=== PATIENT | female | born 1985 | race Caucasian/White ===

== ENCOUNTER 2022-06-20 16:51 | Emergency (ER) | payer BC, SELFPAY ==
[2022-06-20 18:06] VITALS: BP 122/77; PULSE 99; RESP 18; TEMP 36.8; O2SAT 99; BMI 36.9
[2022-06-20] MEDS: 0.9 % SODIUM CHLORIDE 1000 ml 1,000 ML IV (19:30)
[2022-06-20] MEDS: ONDANSETRON 2 MG/ML inj 4 MG IVP (19:30)
[2022-06-20] MEDS: MORPHINE 4 MG/ML INJ IVP (19:40)
[2022-06-20 19:45] LABS: Lactate* 0.7 mmol/L (0.5-1.9)
[2022-06-20 19:48] LABS: Basophils Absolute Auto 0.02 K/uL (0.00-0.30); Basophils Percent Auto 0.3 % (0.0-3.0); Eosinophils Percent Auto 1.3 % (0.0-7.0); Hematocrit 37.3 % (33.0-51.0); Lymphocytes Percent Auto 19.9 % (20-44); Mean Corpuscular HGB Conc 32 gm/dL (32-36); Mean Corpuscular Hemoglobin 29 pg (26-34); Mean Corpuscular Volume 90 fL (80-100); Monocytes Percent Auto 9.4 % (0.0-11.0); Neutrophils Absolute Auto 5.31 K/uL (1.7-7.0); Neutrophils Percent Auto 69.1 % (42.0-72.0); Platelet Count* 243 K/uL (140-440); RDW Coefficient of Variation % 13.2 % (11.5-15.5); Red Blood Count 4.16 m/uL (4.00-5.20); White Blood Count* 7.68 K/uL (4.50-11.00)
[2022-06-20 19:51] LABS: Slide Review Reflex No
[2022-06-20 20:02] LABS: Albumin* 4.1 g/dL (3.3-5.0); Chloride* 107 mmol/L (96-114)
[2022-06-20 20:03] LABS: Sodium* 137 mmol/L (135-149)
[2022-06-20 20:05] LABS: Alkaline Phosphatase* 78 U/L (40-150); Aspartate Amino Transferase* 63 U/L (12-35); Bilirubin Total* 0.5 mg/dL (0.1-1.5); Carbon Dioxide* 24 mmol/L (20-32); Creatinine* 0.8 mg/dL (0.5-1.5); Est. Creatinine Clearance* 100.62; Estimated Glomerular Filt Rate 97 ml/min; Total Protein* 7.1 g/dL (6.0-8.3)
[2022-06-20 20:06] LABS: Alanine Aminotransferase* 57 U/L (4-35); Blood Urea Nitrogen* 10 mg/dL (5-24); Glucose* 92 mg/dL (60-115)
[2022-06-20 20:08] LABS: C Reactive Protein* 5.8 mg/dL (0.5-1.0)
[2022-06-20 20:30] LABS: PCR FLU A Negative PCR FLU A (Negative); PCR FLU B Negative PCR FLU B (Negative)
--- NOTE | 2022-06-20 20:31 | CRLHL7_ITS ---
For Patients: As a result of the Century Cures Act, medical imaging exams and procedure reports are released immediately into your electronic medical record. You may view this report before your referring provider. If you have questions, please contact your health care provider. INDICATION: Leg pain and swelling. TECHNIQUE: Ultrasound venous duplex lower left extremity. Compression venous exam was performed using reyna-scale, color Doppler, and spectral Doppler analysis. COMPARISON: None. FINDINGS: Deep veins: Sonographic imaging demonstrates the left common femoral, deep femoral, superficial femoral, popliteal, posterior tibial and the contralateral right common femoral veins to be fully compressible with normal color Doppler blood flow. Superficial veins: Greater saphenous vein is fully compressible. No popliteal cyst. IMPRESSION: Normal left lower extremity venous ultrasound, no sign of deep venous thrombosis. Dictated by Willie Jules MD @ 06/20/2022 10:23:59 PM (Electronically Signed)
[2022-06-20 20:32] LABS: SARS PCR* Negative SARS-CoV-2 (Negative)
--- NOTE | 2022-06-20 20:40 | ED_ITS ---
HPI - Extremity Injury (Lower) General Time Seen by Provider: 19:00 Date Seen: 06/20/22 Chief Complaint: Extremity Pain/Injury, Lower Stated Complaint: Possible blood clot in L ankle Time Seen by Provider: 06/20/22 19:04 Source: patient, family, RN notes reviewed and old records reviewed Mode of arrival: wheelchair Limitations: no limitations History of Present Illness HPI Narrative: Geetha is a 36-year-old female who is postop day 2 after left ankle orthopedic surgery for fracture dislocation in [place] who comes into in the [place] emergency room for increasing pain. Patient notes that she is requesting stronger pain medications as what she has is not working. She states that she has been using hydrocodone and a muscle relaxer but it is not helping. She also notes significantly increased swelling in this leg and is worried about blood clots. She has not had a fever but is just not feeling well. Patient notes that she was actually getting on a plane on a MondayJune 18 and fell at the airport. She had her ankle repaired and I do note significant fractures I believe this to be trimalleolar as well as dislocation. Thus far she knows t here was no complications during the surgery. She was discharged yesterday and received Lovenox prior to discharge. Unfortunately they missed their plane and had to wait till a late plane in the airport. She then had ride in a plane for 3 hours. She notes increasing edema that has persisted in spite of trying to keep her foot up at home. She was supposed to start Xarelto this evening but has not yet picked up her prescription. She has no past history of DVT. She notes that she gets very nauseated when she sees needles or has the need for an IV. Related Data Home Medications Medication Instructions Recorded Confirmed esomeprazole magnesium 20 mg 20 mg PO QDAY 05/18/22 06/20/22 capsule,delayed release (Nexium) hydrocodone 5 mg-acetaminophen 325 2 tab PO Q4H PRN 06/20/22 06/20/22 mg tablet methocarbamol 500 mg tablet 500 mg PO Q6H PRN 06/20/22 06/20/22 ondansetron 4 mg disintegrating 4 mg PO Q6H PRN 06/20/22 06/20/22 tablet rivaroxaban 10 mg tablet (Xarelto) 10 mg PO DAILY 06/20/22 06/20/22 Previous Rx's Medication Instructions Recorded sertraline 200 mg capsule 200 mg PO QDAY #90 caps 05/18/22 cephalexin 500 mg capsule 500 mg PO TID #21 caps 06/20/22 sulfamethoxazole 800 1 tab PO BID #14 tabs 06/20/22 mg-trimethoprim 160 mg tablet (Bactrim DS) Allergies Allergy/AdvReac Type Severity Reaction Status Date / Time ranitidine Allergy Mild Vomiting Verified 06/20/22 18:14 Review of Systems Status of ROS: Reports: 10 or more systems reviewed and unremarkable except as noted in History and below Const: Reports: fatigue; Denies: fever Eyes: Denies: change in vision ENMT: Denies: throat pain, neck pain or difficulty swallowing Cardio: Reports: swelling of feet/ankles; Denies: chest pain or shortness of breath with exertion Resp: Denies: shortness of breath or cough GI: Reports: nausea; Denies: abdominal pain, vomiting, diarrhea or difficulty swallowing : Denies: painful urination Musculo: Denies: neck pain Integ/Breast: Denies: redness Neuro: Denies: headache Endo: Reports: fatigue PFSH PFSH Medical History Galactorrhea in female Gestational hypertension Surgical History History of ankle surgery History of third molar tooth extraction Family History Family/Other Heart disease High blood pressure High cholesterol Father FH: prostate cancer Alcohol dependence Social History Smoking Status: Never smoker Do you use any of these nicotine containing products: None Second hand tobacco smoke exposure: No How often do you have a drink containing alcohol: never How often do you have six or more drinks on one occasion: Never AUDIT-C Alcohol total score: 0 Non-prescribed substance use: denies use Little interest or pleasure in doing things: more than half the days Feeling down, depressed, or hopeless: more than half the days Exam Narrative: Exam Narrative: Patient is alert and oriented. She is lying on the chair in room 4. Her left leg is elevated. Her neck is supple. She is breathing without difficulty. Heart with regular rate and rhythm and lungs are clear. Abdomen soft. Examination of the lower extremity shows well-demarcated erythema extending above the splint that has been placed. This area of skin on her upper leg is warm to the touch. She is able to move her toes but she clearly has discomfort. Toes are cool to the touch. However I do find pedal pulse which is intact. The splint is gradually removed and there is no significant erythema surrounding the incisions which are stable. A culture is accomplished. All dressings removed and patient has a 5-1/2 cm surgical incision on the medial aspect of the lower leg just above malleolus. Zeferino are present. No drainage from this area. On the lateral surface she has 2 separate vertical surgical wo und measuring approximately 5-6 cm each. Rialto are in place. On the superior surgical wound there is some drainage that is bloody and serous. No obvious purulent drainage. Const: Vital Signs, click to edit/add: Vital Signs - 24 hr 06/20/22 18:06 06/20/22 22:03 Temperature 98.3 F Pulse Rate [Right Pulse Oximeter] 99 86 Respiratory Rate 18 Blood Pressure [Le ft Upper Arm] 122/77 142/93 H Pulse Oximetry 99 99 Oxygen Delivery Me thod Room Air Room Air Documenting provider has reviewed patient's vital signs: yes Course Course Hospital Course: At this time IV will be placed and morphine 4 mg, Zofran 4 mg will be given. Blood cultures, CBC, comprehensive panel, CRP as well as ultrasound are curre ntly ordered. COVID swab. Reevaluation(s) Reevaluation #1: I did have this pleasure of speaking to Dr. Jeffry Contreras our orthopedic surgeon on- call. At this time he agrees with the use of antibiotics and close follow-up with [facility]. I did remove patient's splint used to washcloth to cleanse away all of the surgical prep which is use. I am not entirely sure if this was Betadine but she states that her leg does feel better. Adaptic dressing and bacitracin applied to the surgical wounds. Soft wrap applied and then Eusebio wrap. She feels that this is improved when she came in. Vital Signs Vital signs: Initial Vital Signs Temperature 98.3 F 06/20/22 18:06 Temperature Source Temporal Artery Scan 06/20/22 18:06 Pulse Rate 99 06/20/22 18:06 Respiratory Rate 18 06/20/22 18:06 Blood Pressure 122/77 06/20/22 18:06 Blood Pressure Mean 92 06/20/22 18:06 Blood Pressure Position Sitting 06/20/22 18:06 Pulse Oximetry 99 06/20/22 18:06 Oxygen Delivery Method 06/20/22 18:06 Vital Signs Temperature 98.3 F 06/20/22 18:06 Pulse Rate 99 06/20/22 18:06 Respiratory Rate 18 06/20/22 18:06 Blood Pressure 122/77 06/20/22 18:06 Pulse Oximetry 99 06/20/22 18:06 Oxygen Delivery Method 06/20/22 18:06 Temperature 98.3 F 06/20/22 18:06 Pulse Rate 86 06/20/22 22:03 Respiratory Rate 18 06/20/22 18:06 Blood Pressure 142/93 H 06/20/22 22:03 Pulse Oximetry 99 06/20/22 22:03 Oxygen Delivery Method 06/20/22 22:03 MDM - Extremity Injury (Lower) MDM Narrative Medical decision making narrative: 1. Postoperative pain-today postop day 2. Patient given morphine and Zofran with relief. Pain returned and pain relieved with Toradol 15 mg IV and Dilaudid 0.5 mg IV. Patient will be discharged home with suggested to use ibuprofen 600 mg every 8 hours. We will stop her hydrocodone use at this time and switch to oxycodone. 1-2 tabs p.o. q.4-6 hours p.r.n. number 30 via [employer]. Large amount given secondary to the nature of the injury as well as no concrete follow -up although we believe that follow-up will be with [facility]. 2. Questionable cellulitis-patient did have erythema of the leg that did not dissipate with elevation. This area is warm to the touch. Patient was given Ancef 1 g IV and Bactrim double strength tablet. Will continue with Keflex 500 mg p.o. t.i.d. x7 days as well as Bactrim 1 tablet p.o. b.i.d. x7 days. Blood cultures and wound culture are currently pending. Patient did not have significant erythema or drainage from the surgical wounds. 3. . Left leg swelling-no evidence of DVT. Patient had been on Lovenox and is supposed to start Xarelto tonight. Her 1st dose 10 mg p.o. given in the ED. 4. . Disposition-patient noted to feeling much improved after changing of her splint. Discharged home in the care of her . Will ask him to return for increasing fever redness and pain and as needed. They have requested prescription for wheelchair which I have given to them. Continue Xarelto daily. Follow-up with [facility] as previously planned. Medical Records Attestation: I reviewed the patient's medical records. Lab Data Attestation: I reviewed the patient's lab results. Labs: Lab Results 06/20/22 06/20/22 06/20/22 Range/Units 19:35 19:35 19:35 WBC 7.68 (4.50-11.00) K/uL RBC 4.16 (4.00-5.20) m/uL Hgb 12.0 (12.0-16.0) gm/dL Hct 37.3 (33.0-51.0) % MCV 90 (80-100) fL MCH 29 (26-34) pg MCHC 32 (32-36) gm/dL RDW Coeff of [place] 13.2 (11.5-15.5) % Plt Count 243 (140-440) K/uL Neut % (Auto) 69.1 (42.0-72.0) % Lymph % (Auto) 19.9 L (20-44) % [place] % (Auto) 9.4 (0.0-11.0) % Eos % (Auto) 1.3 (0.0-7.0) % Baso % (Auto) 0.3 (0.0-3.0) % Neut # (Auto) 5.31 (1.7-7.0) K/uL Lymph # (Auto) 1.50 (0.90-2.90) K/uL [place] # (Auto) 0.70 (0.00-0.90) K/UL Eos # (Auto) 0.10 (0.00-0.50) K/uL Baso # (Auto) 0.02 (0.00-0.30) K/uL Abs Immat Gran (auto) 0.00 (0.00-0.30) K/uL Imm/Tot Granulo (auto) 0.0 % Sodium 137 (135-149) mmol/L Potassium 4.0 (3.6-5.1) mmol/L Chloride 107 (96-114) mmol/L Carbon Dioxide 24 (20-32) mmol/L BUN 10 (5-24) mg/dL Creatinine 0.8 (0.5-1.5) mg/dL Estimated Creat Clear 100.62 Estimated GFR 97 ml/min Glucose 92 (60-115) mg/dL Lactate 0.7 (0.5-1.9) mmol/L Calcium 9.0 (8.4-10.6) mg/dL Total Bilirubin 0.5 (0.1-1.5) mg/dL AST 63 H (12-35) U/L ALT 57 H (4-35) U/L Alkaline Phosphatase 78 (40-150) U/L C-Reactive Protein 5.8 H (0.5-1.0) mg/dL Total Protein 7.1 (6.0-8.3) g/dL Albumin 4.1 (3.3-5.0) g/dL SARS-CoV-2 (PCR) (Negative) Influenza Type A (PCR) (Negative) Influenza Type B (PCR) (Negative) 06/20/22 Range/Units 19:35 WBC (4.50-11.00) K/uL RBC (4.00-5.20) m/uL Hgb (12.0-16.0) gm/dL Hct (33.0-51.0) % MCV (80-100) fL MCH (26-34) pg MCHC (32-36) gm/dL RDW Coeff of Lindsey (11.5-15.5) % Plt Count (140-440) K/uL Neut % (Auto) (42.0-72.0) % Lymph % (Auto) (20-44) % [place] % (Auto) (0.0-11.0) % Eos % (Auto) (0.0-7.0) % Baso % (Auto) (0.0-3.0) % Neut # (Auto) (1.7-7.0) K/uL Lymph # (Auto) (0.90-2.90) K/uL [place] # (Auto) (0.00-0.90) K/UL Eos # (Auto) (0.00-0.50) K/uL Baso # (Auto) (0.00-0.30) K/uL Abs Immat Gran (auto) (0.00-0.30) K/uL Imm/Tot Granulo (auto) % Sodium (135-149) mmol/L Potassium (3.6-5.1) mmol/L Chloride (96-114) mmol/L Carbon Dioxide (20-32) mmol/L BUN (5-24) mg/dL Creatinine (0.5-1.5) mg/dL Estimated Creat Clear Estimated GFR ml/min Glucose (60-115) mg/dL Lactate (0.5-1.9) mmol/L Calcium (8.4-10.6) mg/dL Total Bilirubin (0.1-1.5) mg/dL AST (12-35) U/L ALT (4-35) U/L Alkaline Phosphatase (40-150) U/L C-Reactive Protein (0.5-1.0) mg/dL Total Protein (6.0-8.3) g/dL Albumin (3.3-5.0) g/dL SARS-CoV-2 (PCR) Negative SARS-CoV-2 (Negative) Influenza Type A (PCR) Negative PCR FLU A (Negative) Influenza Type B (PCR) Negative PCR FLU B (Negative) Imaging Data Venous US: Attestation: I have reviewed the pertinent imaging results. Radiologist's impression: No evidence of DVT Discharge Plan Discharge Clinical Impression: Cellulitis, Post-operative pain, Ankle fracture Patient Disposition: Home w/ Parent or Adult Condition: Improved Additional Instructions: Start Keflex tomorrow morning. Continue Bactrim tomorrow morning. Keflex will be 3 times daily and Bactrim will be twice daily. Stop Hydrocodone. Switched to oxycodone as needed for discomfort. given in Instant meds Push fluids. I do suggest use of a stool softener such as MiraLax or Colace to avoid constipation. Please follow-up with [facility] for recheck. They will need to refill any pain medications or continue antibiotics after these initial medications. Seek medical attention for fever, worsening redness, worsening drainage and as needed. Prescriptions: New sulfamethoxazole-trimethoprim [Bactrim DS] 800-160 mg tablet 1 tab PO BID Qty: 14 0RF cephalexin 500 mg capsule 500 mg PO TID Qty: 21 0RF No Action esomeprazole magnesium [Nexium] 20 mg capsule,delayed release(DR/EC) 20 mg PO QDAY sertraline 200 mg capsule 200 mg PO QDAY Qty: 90 3RF hydrocodone-acetaminophen 5-325 mg tablet 2 tab PO Q4H PRN Label Comments: TAKE 1 - 2 TABLETS BY MOUTH EVERY 4 - 6 HOURS NEEDED FOR PAIN - MAX OF 8 TABLETS PER 24 HOURS methocarbamol 500 mg tablet 500 mg PO Q6H PRN ondansetron 4 mg tablet,disintegrating 4 mg PO Q6H PRN Label Comments: TAKE 1 TABLET BY MOUTH SUBLINGUALLY EVERY 6 HOURS NEEDED FOR NAUSEA Xarelto 10 mg tablet 10 mg PO DAILY Follow Up/Referrals: Valery Carey, BINGO CHECKER [Nurse Practitioner] - Stand Alone Forms: [facility] Info Instructions
[2022-06-20] MEDS: HYDROmorphone 0.5 mg/0.5 ml inj IVP ×2 (21:15→22:10)
--- OUTSIDE RECORDS SUMMARY | 2022-06-20 21:25 | XMS_ITS | Encounter Summary ---
:1985 Author Organization [facility] Address [address] [place] [address] Care Team Providers Name Role Phone Unavailable Primary Care Provider Unavailable Encounter Details Date Type Department Care Team Description 04/11/2016 Hospital Encounter HX [facility] Kimberly Hansen sa, Ph.D., L.P. [address] [place] [phone] (Wo rk) Social History Tobacco Use Types Packs/Day Years Used Date Smoking Tobacco: Never Assessed Sex Assigned at Date Recorded Not on file documented as of this encounter Last Filed Vital Signs Vital Sign Reading Time Taken Comments Blood Pressure - - Pulse - - Temperature - - Respiratory Rate - - Oxygen Saturation - - Inhaled Oxygen Concentration - - Weight - - Height 173 cm (5' 8.11) 04/11/2016 4:36 PM CDT Body Mass Index - - documented in this encounter Medications at Time of Discharge Medication Sig Dispensed Refills Start Date End Date PNV no.95/ferrous fum/folic Take 1 tablet by 0 ac ( MULTIVITAMINS mouth daily. ORAL) documented as of this encounter Plan of Treatment Not on filedocumented as of this encounter Visit Diagnoses Not on filedocumented in this encounter Additional Health Concerns Assessment Noted Time PHQ-9 Depression Total Score: 11 03/24/2016 2:46 PM CD T documented as of this encounter
--- OUTSIDE RECORDS SUMMARY | 2022-06-20 21:25 | XMS_ITS | Encounter Summary ---
:1985 Author Organization [facility] Address [address] [place] [address] Care Team Providers Name Role Phone Unavailable Primary Care Provider Unavailable Reason for Visit Physical Therapy (Routine) - Canceled Specialty Diagnoses / Procedures Referred By Contact Refer red To Contact Diagnoses Pain Joint Ankle Left Tia Moon M.D. [facility] Procedures PT Ongoing treatment [address] [place] [address] Referral ID Status Reason Start Date Expiration Date Visits V isits Requested Authorized [id number] Canceled 01/03/2022 06/02/2022 99 99 Encounter Details Date Type Department Care Team Description 02/22/2022 Clinical Support Department of Physical Tia Moon M.D. [address], [place] [id number] Pain Joint Ankle Medicine and Chris Brenner P.T., D.P.T. Left Rehabilitation in [place], [place] [address] [place] [id number] Social History Tobacco Use Types Packs/Day Years Used Date Smoking Tobacco: Never Smokeless Tobacco: Never Sex Assigned at Date Recorded Not on file documented as of this encounter Progress Notes Chris Brenner P.T., D.P.T. - 02/22/2022 4:00 PM CDT Physical Therapy Outpatient Treatment Note SUBJECTIVE Patient's Name: Neda Valladares Referring Provider: Tia Moon M.D. Visit Diagnosis: 1. Pain Joint Ankle Left Payor: [employer] / Plan: [employer] / Product Type: PPO / PT Next Certification Date: 05/05/22 [facility] Visit Count: 3 Patient comments: Patient reports that her ankle is doing well but she is dealing with pain over hermetatarsal head on her first digit. She is unsure what could be the cause of pain. She describes pain as annoying. Contact monitoring: PPE used during therapy: Therapist was wearing the following PPE throughout entire session: surgicalmask and eye protection Patient was wearing a mask during therapy session: yes OBJECTIVE Pain: 4-5/10 left ankle Observation/Inspection: Patient is a normal appearing 36 year old female in no acute distress. Ortho Exam FAAM: ADL Total % Score: 51 Sports Total % Score: 19 TREATMENT Treatment today consisted of: Therapeutic Exercise: Elliptical: Resistance 1 5 minutes Heel Raises: 10 reps Toe Raises: 10 reps Single Leg Stance: BOSU 20 sec x 2 reps Step Down: 8 inch step 15 reps Step Up: 8 inch step 15 reps Single Leg Heel Raise: 10 reps left Lunges: 10 reps Squats: 10 reps Toe Walkin ft x 2 reps Heel Walkin ft x 2 reps Heel Raises off 4 inch step: 10 reps Seated Toe Flexion into Theraband: Red Theraband 20 reps Seated Great Toe Flexion into Theraband: red Theraband 20 reps Standing Short Foot: 10 reps with 3 second hold Home Exercise Program/Education: Access Code: [email or web address] URL: [email or web address] Date: 02/02/2022 Prepared by: Chris Brenner Exercises Ankle Dorsiflexion with Resistance - 2 x daily - 7 x weekly - 15-30 reps Ankle and Toe Plantarflexion with Resistance - 2 x daily - 7 x weekly - 15-30 reps Ankle Eversion with Resistance - 2 x daily - 7 x weekly - 15-30 reps Ankle Inversion with Resistance - 2 x daily - 7 x weekly - 15-30 reps Seated Toe Towel Scrunches - 2 x daily - 7 x weekly - 20-30 reps Heel Raises: 20 reps Seated Toe Curls into Theraband Seated Great toe flexion into Theraband Patient reports good HEP compliance. Assessment Clinical Impression: Patient continues to improve. She has had increased pain over the last few dayson her first metatarsal head. Educated on pain being caused from normal gait biomechanics. Patient continues to experience weakness in her left gastroc and soleus. Facilitated ankle strengthening with today's exercises. Patient is appropriate for continued skilled Physical Therapy services to increasestrength and decrease pain. Functional Goals and Timeframes: PT Goal #1: Patient will tolerate 30 minutes of exercise classes 0/10 pain to increase her activity tolerance. PT Goal #1 Date: 05/05/22 PT Goal #2: Patient will be able to ambulate 2 miles with 0/10 pain PT Goal #2 Date: 05/05/22 PT Goal #3: Patient will tolerate 2 hours of standing activity in order to return to work. PT Goal #3 Date: 05/05/22 PT Goal #4: Patient will increase functional score to greater than 80%. PT Goal #4 Date: 05/05/22 Plan Plan for next session: Continue to progress foot and ankle strengthening. Time Spent with Patient Therapeutic Interventions Therapeutic Exercise (min): 32 min Time Tracking Total Timed Units (min): 32 min Total Treatment Time (min): 32 min documented in this encounter Plan of Treatment Not on filedocumented as of this encounter Visit Diagnoses Diagnosis Pain Joint Ankle Left documented in this encounter Additional Health Concerns Assessment Noted Time PHQ-9 Depression Total Score: 11 03/24/2016 2:46 PM CD T documented as of this encounter
--- OUTSIDE RECORDS SUMMARY | 2022-06-20 21:25 | XMS_ITS | Encounter Summary ---
:1985 Author Organization [facility] Address [address] [place] [address] Care Team Providers Name Role Phone Unavailable Primary Care Provider Unavailable Encounter Details Date Type Department Care Team Description 12/28/2021 Clinical Communication Department of Physical [facility], Pcp Medicine and Rehabilitation in [place], [place] [address] [place] [phone] Social History Tobacco Use Types Packs/Day Years Used Date Smoking Tobacco: Never Smokeless Tobacco: Never Sex Assigned at Date Recorded Not on file documented as of this encounter Miscellaneous Notes Telephone Encounter - Nicole Chavez - 12/28/2021 10:44 AM CDT The patient would like a call back at [phone] to schedule physical therapy. She has an outside order for it. Thank you. documented in this encounter Plan of Treatment Not on filedocumented as of this encounter Visit Diagnoses Not on filedocumented in this encounter Additional Health Concerns Assessment Noted Time PHQ-9 Depression Total Score: 11 03/24/2016 2:46 PM CD T documented as of this encounter
--- OUTSIDE RECORDS SUMMARY | 2022-06-20 21:25 | XMS_ITS | Clinical Summary ---
:1985 Author Organization [facility] Address [address] [place] [address] Care Team Providers Name Role Phone Unavailable Primary Care Provider Unavailable Source Comments Patient records contain information from all sites at [facility]. For routine questions regarding patient records, call [phone] during business hours, M-F 8:00 AM - 5:00 PM Central Time. Record requests for emergency care only can be directed to [phone] at any time.[facility] Allergies Active Allergy Reactions Severity Noted Date Comments Ranitidine GI intolerance 06/29/2019 Medications Medication Sig Dispensed Refills Start Date End Date Status esomeprazole (NexIUM) Take 10 mg by [address] capsule mouth. PNV no.95/ferrous Take 1 tablet by 0 11/05/2012 Active fum/folic ac ( mouth daily. MULTIVITAMINS ORAL) sertraline (Zoloft) 100 Take 50 mg by 0 Active mg tablet mouth. azelaic acid (FINACEA) azelaic acid 15 % 0 Active 15 % gel topical gel azelaic acid (Finacea) Finacea 15 % 0 Active 15 % foam topical foam clindamycin (CLEOCIN T) 3 04/09/2019 Active 1 % lotion Active Problems Estimated Date of Delivery Comments Yes 12/01/2019 No known active problems Immunizations Name Administration Dates Next Due 4vHPV (discontinued) 09/12/2008, 11/30/2007, 09/10/2007 MPSV4 05/09/2003 Social History Tobacco Use Types Packs/Day Years Used Date Smoking Tobacco: Never Smokeless Tobacco: Never Estimated Date of Delivery Comments Yes 12/01/2019 Sex Assigned at Date Recorded Not on file Last Filed Vital Signs Vital Sign Reading Time Taken Comments Blood Pressure 115/78 06/29/2019 10:55 AM CLINICAL EDITOR Pulse 96 06/29/2019 10:55 AM CLINICAL EDITOR Temperature 36.4 ??C (97.5 ??F) 06/29/2019 10:55 last dose o f tylenol AM CLINICAL EDITOR at 6 am 9 5 hour s Respiratory Rate 16 07/25/2014 10:10 AM CLINICAL EDITOR Oxygen Saturation 98% 06/29/2019 10:55 AM CLINICAL EDITOR Inhaled Oxygen - - Concentration Weight 113 kg (248 lb 14.4 06/29/2019 10:55 oz) AM CLINICAL EDITOR Height 173 cm (5' 8.11) 06/20/2016 4:04 PM CLINICAL EDITOR Body Mass Index 37.72 06/20/2016 4:04 PM CLINICAL EDITOR Plan of Treatment Health Maintenance Due Date Last Done Comments Hepatitis B Vaccines (1 of 1984 3 - 3-dose series) Lipid (Cholesterol) 1985 Screening COVID-19 Vaccine (3 - 04/06/2021 02/09/2021, 01/19/2021 Booster for Pfizer series) Depression Screening 07/24/2021 (Annual PHQ-2) Influenza Vaccine (#1) 2022 04/25/2019, 04/23/2019, 05/07/2015, Additional history exists Cervical Cancer Screening 04/25/2022 04/25/2019 DTaP,Tdap,and Td Vaccines 09/18/2029 09/18/2019, 12/02/2013 , (4 - Td or Tdap) 09/03/2013 HIV Screening Completed 02/27/2013 Pneumococcal vaccine (0-64 Aged Out No lo nger eligible years) based on patient 's age to complete this topic Insurance Payer Benefit Plan / Subscriber ID Effective Phone Address T ype Group Dates [facility] [place] [place] [id number] 2020-Prese [phone] [address] [place] [address]
--- OUTSIDE RECORDS SUMMARY | 2022-06-20 21:25 | XMS_ITS | Encounter Summary ---
:1985 Author Organization [facility] Address [address] [place] [address] Care Team Providers Name Role Phone Unavailable Primary Care Provider Unavailable Encounter Details Date Type Department Care Team Description 01/28/2016 - Hospital Encounter HX [facility] Rachel Peres PT 10/23/2016 Social History Tobacco Use Types Packs/Day Years Used Date Smoking Tobacco: Never Sex Assigned at Date Recorded Not on file documented as of this encounter Medications at Time of Discharge Medication Sig Dispensed Refills Start Date End Date PNV no.95/ferrous fum/folic Take 1 tablet by 0 ac ( MULTIVITAMINS mouth daily. ORAL) documented as of this encounter Miscellaneous Notes Miscellaneous - Jacy Escobar Provider Ser - 02/03/2016 11:07 PM CDT Coding Summary-Paper Based CODING DATE: 02/03/[address] [facility] STATUS: Still Patient/Expected to Rtn O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 However, the narrative phrase printed from the coding software may appear abbreviated, or result in slightly different terminology. Coded By: ROMULO LINDSEY Date Saved: 02/03/2016 11:07 pm Source: [facility] [employer] Document Id: [id number] documented in this encounter Plan of Treatment Not on filedocumented as of this encounter Visit Diagnoses Not on filedocumented in this encounter
--- OUTSIDE RECORDS SUMMARY | 2022-06-20 21:25 | XMS_ITS | Encounter Summary ---
:1985 Author Organization [facility] Address [address] [place] [address] Care Team Providers Name Role Phone Unavailable Primary Care Provider Unavailable Reason for Visit Physical Therapy (Routine) - Canceled Specialty Diagnoses / Procedures Referred By Contact Refer red To Contact Diagnoses Pain Joint Ankle Left Tia Moon M.D. [facility] Procedures PT Ongoing treatment [address] [place] [address] Referral ID Status Reason Start Date Expiration Date Visits V isits Requested Authorized [id number] Canceled 01/03/2022 06/02/2022 99 99 Encounter Details Date Type Department Care Team Description 02/15/2022 Clinical Support Department of Physical Tia Moon M.D. [address] [place], [place] [id number] Pain Joint Ankle Medicine and Chris Brenner P.T., D.P.T. Left Rehabilitation in [place], [place] [address] [place] [id number] Social History Tobacco Use Types Packs/Day Years Used Date Smoking Tobacco: Never Smokeless Tobacco: Never Sex Assigned at Date Recorded Not on file documented as of this encounter Progress Notes Chris Brenner P.T., D.P.T. - 02/15/2022 2:00 PM CDT Physical Therapy Outpatient Treatment Note SUBJECTIVE Patient's Name: Neda Valladares Referring Provider: Tia Moon M.D. Visit Diagnosis: 1. Pain Joint Ankle Left Payor: [email or web address] / Plan: [email or web address] / Product Type: PPO / PT Next Certification Date: 05/05/22 [facility] Visit Count: 2 Patient comments: Patient went on a college visit with her son. She ambulated 7 miles in one day. She stated the ankle was sore. She appreciates swelling after activity. Believes strength is improving. Contact monitoring: PPE used during therapy: Therapist was wearing the following PPE throughout entire session: surgicalmask and eye protection Patient was wearing a mask during therapy session: yes OBJECTIVE Pain: 0/10 left ankle Observation/Inspection: Patient is a normal [...] Step Down: 8 inch step 15 reps Single Leg Heel Raise: 10 reps left Lateral Band Walks with Theraband around toes: Red Theraband 20 steps x 2 to promote ankle eversion Lunges: 10 reps Squats: 10 reps Short Foot: 10 reps with 3 second hold Seated Heel Raise: 20 reps Seated Toe Raises: 20 reps Home Exercise Program/Education: Access Code: [email or web address] URL: [email or web address] Date: 02/02/2022 Prepared by: Chris Brenner Exercises [...] - 20-30 reps Heel Raises: 20 reps Patient reports good HEP compliance. Assessment Clinical Impression: Patient continues to improve well. Gait was symmetric today. No antalgic gait pattern noted. Facilitated ankle strengthening with seated and standing activities. She tolerated wellwith no increased complaints of pain or discomfort. She was active since her last visit that caused d iscomfort. Instructed patient to move to green Thera-Band for exercises. Patient is appropriate for continued skilled Physical Therapy services to increase strength and endurance. Functional Goals and Timeframes: PT Goal #1: [...] with Patient Therapeutic Interventions Therapeutic Exercise (min): 31 min Time Tracking Total Timed Units (min): 31 min Total Treatment Time (min): 31 min documented in this encounter Plan of Treatment Not on filedocumented as of this encounter Visit Diagnoses Diagnosis Pain Joint Ankle Left documented in this encounter Additional Health Concerns Assessment Noted Time PHQ-9 Depression Total Score: 11 03/24/2016 2:46 PM CD T documented as of this encounter
--- OUTSIDE RECORDS SUMMARY | 2022-06-20 21:25 | XMS_ITS | Encounter Summary ---
:1985 Author Organization [facility] Address [address] [place] [address] Care Team Providers Name Role Phone Unavailable Primary Care Provider Unavailable Encounter Details Date Type Department Care Team Description 05/12/2016 Hospital Encounter HX [facility] Kimberly Hansen sa, Ph.D., L.P. [address] [place] [address] (Wo rk) Social History Tobacco Use Types [...] - - Height 173 cm (5' 8.11) 05/12/2016 11:43 AM CDT Body Mass Index - - documented [...]
--- OUTSIDE RECORDS SUMMARY | 2022-06-20 21:25 | XMS_ITS | Encounter Summary ---
:1985 Author Organization [facility] Address [address] [place] [address] Care Team Providers Name Role Phone Unavailable Primary Care Provider Unavailable Encounter Details Date Type Department Care Team Description 02/17[facility]2016 [facility] [address] [place] [phone] (Wo rk) Social History Tobacco Use Types Packs/Day Years Used Date Smoking Tobacco: Never Assessed Sex Assigned at Date Recorded Not on file documented as of this encounter Last Filed Vital Signs Vital Sign Reading Time Taken Comments Blood Pressure 112/70 02/17/2016 2:31 PM CDT Pulse 84 02/17/2016 2:31 PM CDT Temperature - - Respiratory Rate - - Oxygen Saturation - - Inhaled Oxygen Concentration - - Weight 96.9 kg (213 lb 10 oz) 02/17/2016 2:31 PM CDT Height 173 cm (5' 8.11) 02/17/2016 2:31 PM CDT Body Mass Index 32.38 02/17/2016 2:31 PM CDT documented in this encounter Medications at Time of Discharge Medication Sig Dispensed Refills Start Date End Date PNV no.95/ferrous fum/folic Take 1 tablet by 0 ac ( MULTIVITAMINS mouth daily. ORAL) documented as of this encounter Progress Notes Bertha Snider APRN, C.N.P. - 02/17/2016 2:25 PM CDT [id number] CHIEF COMPLAINT/REASON FOR VISIT 1. The patient is here today for referral for behavorial health stress management with Dr. Lilly Hansen. 2. Desire for weight loss. HISTORY OF PRESENT ILLNESS Winston is a 30-year-old female, who usually doctors at [facility] in [place]. She has been seeing Physical therapy for TMJ as well as wearing mouth guards. Her physical therapist did recommend stress management through Dr. Lilly Hansen at the [facility] and a referral within the [facility] was required so she did call to schedule an appointment with me today. According to Winston her physical therapist has already contacted Dr. Lilly Hansen to have her scheduled with her but a formal referral is needed. The patient is inquiring about weight loss. 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 She has tried to watch her diet but since her child was born several years ago she has been unable to lose weight. She is interested in losing approximately 30-40 pounds. She has tried Thrive and is curious if there would be any type of medication that could help her jump start her weight loss. PAST MEDICAL/SURGICAL HISTORY Past medical history anxiety. Past surgical history negative. FAMILY HISTORY No family history of heart disease, diabetes. MEDICATIONS Current medications Azelex topical cream Clindamycin topical gel. Trazodone Sertraline plus vitamins. ALLERGIES No known drug allergies. SOCIAL HISTORY The patient exercises regularly, nonsmoker. Social alcohol user. Caffeine intake 2 cups per day. 1, para 1. . SYSTEMS REVIEW HEENT: She does complain of occasional headaches from TMJ this has improved since wearing her mouth guard for the past month. No frequent sore throats. CHEST: No shortness of breath, cough, or chest pain. No palpitations. GI: No nausea, vomiting, diarrhea. Remainder review of systems negative. VITAL SIGNS Temp 36.4, heart rate 84, blood pressure 112/70, O2 sat 99%. Height 173, weight 96.9, BMI 32.38. PHYSICAL EXAMINATION GENERAL: Pleasant 30-year-old female, in no apparent distress. HEENT: Conjunctivae, TMs, nasal mucosa clear. She does have some cracking or locking noted in the right temporomandibular joint. Nontender to palpation. CHEST: Lungs clear to auscultation. HEART: Heart rate rhythm is regular without murmur, gallop or thrill. No JVD or carotid bruit. ABDOMEN: Soft, obese, nontender. No palpable mass or organomegaly. IMPRESSION/REPORT/PLAN 1. Temporomandibular joint. 2. Generalized anxiety. 3. BMI greater than 30. PLAN: 1. Treatment options were discussed with Winston, will go ahead and make the referral for Dr. Lilly Hansen at [facility] for stress management to help her with her temporomandibular joint. She will continue with physical therapy for this as well. 2. We discussed some anxiety relieving techniques and reinforced her regular exercise. 3. Weight loss was discussed at length today with dietary modifications and lifestyle modifications discussed. Handout information was provided on healthy nutritional dietary choices as well as examples of 1400, 1600 and 1200 kilocalorie dietary options. We did discuss weight loss medications and phent ermine 37.5 mg 1 tab daily #30 with 2 refills only was provided today. Side effect profile and administration instructions discussed including risk for increased heart rate. The patient voices understanding and will take this once every morning to help facilitate her weight loss in addition to her regular exercise, low-fat, low-cholesterol diet. Advised follow up appointment in 1 month. She voices understanding and will follow up as directed. Bertha Snider APRN, C.N.P./pos Electronically Signed By: BERTHA SNIDER PSYCHIATRIC NP On: 02/18/2016 01:21 PM Source: [facility] [email or web address] Document Id: [id number] documented in this encounter Miscellaneous Notes Miscellaneous - Bertha Snider APRN, C.N.P. - 02/17/2016 4:21 PM CDT Ambulatory Patient Summary [address] [id number] Visit Information Name: WINSTON STRINGER [facility] Number: [id number] Current Date: 02/17/2016 16:21:52 Physicians Attending Provider: BERTHA SNIDER NP Primary Care Provider: PCP, WINSTON GUY has been given the following list of follow-up instructions, medication list, and patient education materials: Follow-up Instructions Your Medications Here is a list of your medications. It is important to take your medications as directed. Use a pillbox or chart to help remind you to take your medications. Please let your doctor or nurse know if you have problems taking your medications. Medication/Strength How to Take Indications/Special Instructions/Comments/Notes for Patient Medication Changes/Routing *azelaic acid topical (Azelex 20% topical cream) 1 maya, Topical, two times a day *clindamycin topical (clindamycin 1% topical gel) 1 maya, Topical, once a day Misc Prescription (Misc Prescription) anxiety med ? name one qd This is a CHANGE Misc Prescription (Misc Prescription) sleeping pill ? name prn This is a CHANGE *multivitamin, ( Plus oral tablet) 1 Tablet(s), Oral, once a day phentermine (phentermine 37.5 mg oral tablet) 1 Tablet(s), Oral, once a day New Routed to Printer * You have let us know that you are not taking this medication as listed. Please talk with your primary care provider or the health care provider who prescribed the medication as soon as possible. Stop Taking the Following Medications: Medication list as of 02-17-16 16:21 Attention: If you have any medications at home that are not on this list, DO NOT take them until youcontact your provider for clarification. Give a copy of your medication list to your primary care provider. Update your medication list any time medications or doses are changed and carry your medication list at all times in case of emergency. Electronically Signed By: BERTHA SNIDER NP Signed On:17-FEB-2016 16:21:49 Your Allergies & Intolerances Substance Reaction Symptoms Category Comments No Known Allergies Drug Your Problem List Problem Status Onset Comments No Chronic Problems Active Your Upcoming Appointments Date Time Location Provider 02/24/2016 10:45 Yaz Montejo PT 03/02/2016 11:30 Yaz Montejo PT 03/24/2016 13:30 [facility] Shawn Hansen PhD, Lilly Lerma Attention: Contact your local Clinic if further appointment detail needed. Consider Using Patient Online Services Patient Online Services is a secure online and Mobile application that lets you: ?? View lab and test results ?? View portions of your medical record including clinical notes, immunizations and discharge summaries ?? Request an appointment or medication refill ?? Review your appointment schedule ?? Send secure messages to your care team Its easy to create an account if you dont have one. Go to [email or web address] and click on Create Your Account. Then, follow the directions to complete the online form. Youll be asked for your [facility] number which you can find at the top of this document. Your Goals/Additional instructions: Source: [facility] POWERCHART Document Id: [id number] Miscellaneous - Bertha Snider APRN, C.N.P. - 02/17/2016 4:21 PM CDT Ambulatory Discharge Medication List [address] [id number] Visit Information Name: SIOMARA WINSTONKM CASTELAN [facility] Number: [id number] Visit Date: 02/17/2016 16:21:51 Attending Provider: BERTHA SNIDER PSYCHIATRIC NP Primary Care Provider: PCPCARLOS EDUARDO HILARY RAE has been given the following list of medications: Your Medications It is important to take your medications as directed. Use a pill box or chart to help remind you to take your medications. Please let your doctor or nurse know if you have problems taking your medications. Medication/Strength How to Take Indications/Special Instructions/Comments/Notes for Patient Medication Changes/Routing *azelaic acid topical (Azelex 20% topical cream) 1 maya, Topical, two times a day *clindamycin topical (clindamycin 1% topical gel) 1 maya, Topical, once a day Misc Prescription (Misc Prescription) anxiety med ? name one qd This is a CHANGE Misc Prescription (Misc Prescription) sleeping pill ? name prn This is a CHANGE *multivitamin, ( Plus oral tablet) 1 Tablet(s), Oral, once a day phentermine (phentermine 37.5 mg oral tablet) 1 Tablet(s), Oral, once a day New Routed to Printer * You have let us know that you are not taking this medication as listed. Please talk with your primary care provider or the health care provider who prescribed the medication as soon as possible. Stop Taking the Following Medications: Medication list as of 02-17-16 16:21 Attention: If you have any medications at home that are not on this list, DO NOT take them until youcontact your provider for clarification. Give a copy of your medication list to your primary care provider. Update your medication list any time medications or doses are changed and carry your medication list at all times in case of emergency. Electronically Signed By: BERTHA SNIDER PSYCHIATRIC NP Signed On:17-FEB-2016 16:21:49 Additional Information: Source: [facility] POWERCHART Document Id: [id number] Miscellaneous - Nemo Ramsey, C.M.A. 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 Entered On: 02/17/2016 14:34 CDT Performed On: 02/17/2016 14:31 CDT by NEMO RAMSEY [facility] Intake Chief Complaint : had PT for TMD and they advised referral to stressmg[facility] in [place] Temperature Core : 36.4 DegC(Converted to: 97.5 DegF) (LOW) Peripheral Pulse Rate : 84 /min Heart Rhythm : Regular Systolic Blood Pressure : 112 mmHg Diastolic Blood Pressure : 70 mmHg NIBP Mean : 84 mmHg BP Location : Left upper extremity Blood Pressure Cuff Size : Large SpO2 : 99 % Oxygen Therapy : Room air Height : 173 cm(Converted to: 5 ft 8 inch(es), 68 inch(es)) Actual Weight : 96.9 kg(Converted to: 213 lb 10 oz) Weight Source : Standing scale Dosing Weight Clinic : 96.9 kg Clinic BSA : 2.16 Body Mass Index : 32.38 kg/m2 NEMO RAMSEY [facility] - 02/17/2016 14:31 CDT General Info Languages : [place]ese Is Patient Female and 13-50 no hysterectomy : Yes Status : Patient denies Are you ? : No NEMO RAMSEY [facility] - 02/17/2016 14:31 CDT Subjective Pain Symptoms : No NEMO RAMSEY [facility] - 02/17/2016 14:31 CDT Dependent Habits Exposure to Tobacco Smoke : Other: never smoker Smoking Status : Never smoker Tobacco 2A : No Tobacco Use/Currently Using : No Tobacco Use/Last 30 Days : No Tobacco Use/Last 12 months : No NEMO RAMSEY [facility] - 02/17/2016 14:31 CDT Source: [facility] [employer] Document Id: [id number] CDT!33 documented in this encounter Plan of Treatment Not on filedocumented as of this encounter Visit Diagnoses Not on filedocumented in this encounter
--- OUTSIDE RECORDS SUMMARY | 2022-06-20 21:25 | XMS_ITS | Encounter Summary ---
:1985 Author Organization [facility] Address [address] [place] [address] Care Team Providers Name Role Phone Unavailable Primary Care Provider Unavailable Encounter Details Date Type Department Care Team Description 06/20/2016 Hospital Encounter HX [facility] Kimberly Hansen sa, Ph.D., L.P. 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
--- OUTSIDE RECORDS SUMMARY | 2022-06-20 21:25 | XMS_ITS | Encounter Summary ---
:1985 Author Organization [facility] Address [address] [place] [address] Care Team Providers Name Role Phone Unavailable Primary Care Provider Unavailable Encounter Details Date Type Department Care Team Description 10/09/2020 Orders Only [facility] Baldo Christianson Jr., M.D. [address] [place] [phone] (Wo rk) Social History Tobacco Use Types Packs/Day Years Used Date Smoking Tobacco: Never Smokeless Tobacco: Never Sex Assigned at Date Recorded Not on file documented as of this encounter Plan of Treatment Not on filedocumented as of this encounter Visit Diagnoses Not on filedocumented in this encounter Additional Health Concerns Assessment Noted Time PHQ-9 Depression Total Score: 11 03/24/2016 2:46 PM CD T documented as of this encounter
--- OUTSIDE RECORDS SUMMARY | 2022-06-20 21:25 | XMS_ITS | Encounter Summary ---
:1985 Author Organization [facility] Address [address] [place] [address] Care Team Providers Name Role Phone Unavailable Primary Care Provider Unavailable Reason for Visit Reason Comments Sore Throat SX: yesterday; fever, ears h urt, diarrhea Encounter Details Date Type Department Care Team Description 06/29/2019 Office Visit Urgent Care, [facility] Sammi López, Pha ryngitis Streptococcal (Primary Dx); [place], in [facility] NINFA, C.N.PDaniella, Phar yngitis Acute [place] D.N.P. [address] [place] [phone] Social History Tobacco Use Types Packs/Day Years Used Date Smoking Tobacco: Never Smokeless Tobacco: Never Sex Assigned at Date Recorded Not on file documented as of this encounter Last Filed Vital Signs Vital Sign Reading Time Taken Comments Blood Pressure 115/78 06/29/2019 10:55 AM PIERCING MACHINE OPERATOR Pulse 96 06/29/2019 10:55 AM PIERCING MACHINE OPERATOR Temperature 36.4 ??C (97.5 ??F) 06/29/2019 10:55 last dose o f tylenol AM PIERCING MACHINE OPERATOR at 6 am 9 5 hour s Respiratory Rate - - Oxygen Saturation 98% 06/29/2019 10:55 AM PIERCING MACHINE OPERATOR Inhaled Oxygen - - Concentration Weight 113 kg (248 lb 14.4 06/29/2019 10:55 oz) AM PIERCING MACHINE OPERATOR Height - - Body Mass Index 37.72 06/20/2016 4:04 PM PIERCING MACHINE OPERATOR documented in this encounter Patient Instructions Patient InstructionsSammi López APRN, C.N.P., D.N.P. - 06/29/2019 11:00 AM CST Home care and follow-up as discussed. CING MACHINE OPERATOR documented in this encounter Progress Notes Sammi López APRN, C.N.P., Pat. - 06/29/2019 11:00 AM CST SUBJECTIVE CHIEF COMPLAINT / REASON FOR VISIT Sore Throat (SX: yesterday; fever, ears hurt, diarrhea) HISTORY OF PRESENT ILLNESS Neda Valladares is a 33 y.o. female who is currently 18 weeks who presents to the urgent care for evaluation of her sore throat. She reports starting with feeling hot and cold, sore throat, ear pressure, body aches and a cough since yesterday. She also has had 4 loose stools yesterday. 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 She has been immunized against influenza this season. She would like only strep testing at this time. REVIEW OF SYSTEMS A brief review of systems was negative except for that mentioned in the history of present of illness. The patient's social history, medical history, and home medications were reviewed in the electronic medical record. ALLERGIES/CONTRAINDICATIONS Allergies Allergen Reactions ??? Ranitidine GI intolerance OBJECTIVE VITAL SIGNS BP 115/78 (BP Location: Right arm, Patient Position: Sitting, Cuff Size: Large) Pulse 96 Temp 36.4 ??C (Temporal) Comment: last dose of tylenol at 6 am 9 5 hours Wt 113 kg SpO2 98% ? No BMI 37.72 kg/m?? PHYSICAL EXAMINATION General: This patient is alert and in no acute distress. HEENT: Head is atraumatic and normocephalic. Sclera and conjunctivae appear clear without any injection or exudates. PERRLA. EOMs are intact bilateral. Auditory canals are normal without erythema or edema. TMs are pearly reyna and intact without erythema with mild effusion bilaterally. Oral cavity is ad equately hydrated. Posterior pharynx is erythematous. Uvula is midline. Tonsils are enlarged withoutexudates. Neck: Supple with bilateral tonsillar lymphadenopathy. Respiratory: Effort is easy. Lung sounds are clear to auscultation. Cardiovascular: S1, S2 are present. Normal rate and rhythm. Musculoskeletal: Grossly intact. No deformities are noted. Skin: Normal color, temperature and moisture. No rashes or lesions are noted. DIAGNOSTICS Recent Results (from the past 24 hour(s)) Strep Group A, PCR, Point of Care Collection Time: 06/29/19 11:12 AM Result Value Strep Group A, PCR, POCT Collected Strep Group A, PCR, Point of Care Collection Time: 06/29/19 11:30 AM Result Value Strep Group A, PCR, POCT Positive (A) ASSESSMENT / PLAN #1 Pharyngitis Streptococcal - amoxicillin (AMOXIL) 500 mg capsule; Take 1 capsule (500 mg total) by mouth every 12 (twelve) hours for 10 days., Starting 06/29/2019, Until Mon2019, Normal #2 Pharyngitis Acute - Strep Group A, PCR, Point of Care Other orders - Strep Group A, PCR, Point of Care Complete full course of antibiotics as prescribed. Medication side effects were discussed. Encouraged yogurt or probiotic use. Alternate acetaminophen and ibuprofen for pain and fever. OTC and home care measures such as saltwater gargles, lozenges, cough drops, honey discussed. Push fluids. Get plenty of rest. Change toothbrush in 48 hrs. This patient will be contagious for 24 hours after starting antibiotics. If diarrhea continues, we discussed trying to keep up with fluid intake intake being more than the output. BRAT diet and advanced diet slowly as tolerated. See primary care provider to follow-up in 4-5 days if not improving, sooner to ED or urgent care forany worsening or concerning symptoms. Electronically signed by: Sammi López APRN, C.N.P., D.N.P. 06/29/19 11:49 AM CING MACHINE OPERATOR documented in this encounter Plan of Treatment Not on filedocumented as of this encounter Procedures Procedure Name Priority Date/Time Associated Diagnosis Comme nts STREP GROUP A, PCR, Routine 06/29/2019 11:30 AM R esults for this POCT PIERCING MACHINE OPERATOR procedure are i n the results section. STREP GROUP A, PCR, Routine 06/29/2019 11:12 AM Pharyngitis Ac [place] Results for this POCT PIERCING MACHINE OPERATOR procedure are i n the results section. documented in this encounter Results (ABNORMAL) Strep Group A, PCR, Point of Care (06/29/2019 11:30 AM PIERCING MACHINE OPERATOR) Patholo gist Method Time Signature Strep Group Positive (A) Negative 06/29/2019 [facility] A, PCR, POCT 11:30 AM PIERCING MACHINE OPERATOR Specimen Anatomical Collection Method Collection Time Receive d Time (Source) Location / / Volume Laterality Varies 06/29/2019 11:30 06/29/2019 AM PIERCING MACHINE OPERATOR 11:35 AM PIERCING MACHINE OPERATOR Generic [facility]als LAB POCT ORDERABLES - DEVICE Performing Organization Address City/[facility] Code Phon e Number [place] [phone] [address] [facility] [address] Strep Group A, PCR, Point of Care (06/29/2019 11:12 AM PIERCING MACHINE OPERATOR) Analysis Performed At Path logist Time Signature Strep Group A, Collected DEFAULT 06/29/2019 [facility] PCR, POCT 11:17 AM PIERCING MACHINE OPERATOR Specimen Anatomical Collection Method Collection Time Receive d Time (Source) Location / / Volume Laterality Varies (Throat) 06/29/2019 11:12 12 19 AM PIERCING MACHINE OPERATOR 11:17 AM PIERCING MACHINE OPERATOR Kenia Reeder APRN.NDaniellaPDaniella, D.N.P. LAB POCT ORDERABLES - DEVICE Performing Organization Address City/[facility] Code Phon e Number [place] [phone] 1 [facility] [address] documented in this encounter Visit Diagnoses Diagnosis Pharyngitis Streptococcal - Primary Pharyngitis Acute documented in this encounter Additional Health Concerns Assessment Noted Time PHQ-9 Depression Total Score: 11 03/24/2016 2:46 PM CD T documented as of this encounter
--- OUTSIDE RECORDS SUMMARY | 2022-06-20 21:25 | XMS_ITS | Encounter Summary ---
:[address] [facility] Address [address] [place] [address] Care Team Providers Name Role Phone Unavailable Primary Care Provider Unavailable Encounter Details Date Type Department Care Team Description 03/24/2016 Hospital Encounter HX [facility] Kimberly Hansen sa, Ph.D., L.P. [address] [place] [phone] (Wo rk) Social History Tobacco Use Types [...] - - Height 173 cm (5' 8.11) 03/24/2016 1:34 PM CDT Body Mass Index - - documented in this encounter Medications at Time of Discharge Medication Sig Dispensed Refills Start Date End Date PNV no.95/ferrous fum/folic Take 1 tablet by 0 ac ( MULTIVITAMINS mouth daily. ORAL) documented as of this encounter Miscellaneous Notes Miscellaneous - Lilly Hansen, Ph.D., L.P. - 03/24/2016 2:46 PM CDT AUDIT AUDIT Entered On: 03/24/2016 14:46 CDT Performed On: 03/24/2016 14:46 CDT by LILLY HANSEN PHD AUDIT Tool How Often Do You Have A Drink : 2 to 3 times a week How Many Drinks in a Day When Drinking : 3 or 4 Six or More Drinks On One Occassion : Less than monthly Audit Phase 1 Score : 5 Not Able To Stop Drinking Once Started : Never Failed To Do What Is Normally Expected : Never Needed A First Drink In The Morning : Never Feeling of Guilt/Remorse After Drinking : Never Unable to Remember What Happened : Never Has Your Drinking Caused Injury : No Anyone Concerned About Your Drinking : No AUDIT Phase 2 Score : 0 AUDIT Score : 5 LILLY HANSEN PHD - 03/24/2016 14:46 CDT Source: Joturl Document Id: [id number] CDT!15 Miscellaneous - Lilly Hansen, Ph.D., L.P. - 03/24/2016 2:46 PM CDT ENRIQUE-7 ENRIQUE-7 Entered On: 03/24/2016 14:46 CDT Performed On: 03/24/2016 14:46 CDT by LILLY HANSEN PHD GAD7 GAD7 Feeling nervous : Several days GAD7 Not able to control worry : Not at all GAD7 Worrying too much : Not at all GAD7 Trouble relaxing : Several days GAD7 Being so restless : Not at all GAD7 Becoming easily annoyed : Several days GAD7 Feeling afraid : Not at all GAD7 Total Score : 3 Problems make work, home, or dealing with others : Not difficult at all LILLY HANSEN PHD - 03/24/2016 14:46 CDT Source: Joturl Document Id: [id number] CDT!11 Miscellaneous - Lilly Hansen, Ph.D., L.P. - 03/24/2016 2:46 PM CDT PHQ-9 PHQ-9 Entered On: 03/24/2016 14:47 CDT Performed On: 03/24/2016 14:46 CDT by LILLY HANSEN PHD PHQ-9 Little interest or pleasure in doing things : Several days Feeling down, depressed, or hopeless : Several days Trouble falling or staying asleep, or sleeping too much : More than half the days Feeling tired or having little energy : More than half the days Poor appetite or overeating : More than half the days Feeling bad about yourself or that you are a failure : More than half the days Trouble concentrating on things : Several days Moving or speaking slowly; restless or fidgety : Not at all Thoughts that you would be better off /hurting self : Not at all PHQ-9 Calculated Score : 11 Problems make work, home, or dealing with others : Not difficult at all LILLY HANSEN PHD - 03/24/2016 14:46 CDT Source: Joturl Document Id: [id number] CDT!13 documented in this encounter Plan of Treatment Not on filedocumented as of this encounter Visit Diagnoses Not on filedocumented in this encounter Additional Health Concerns Assessment Noted Time PHQ-9 Depression Total Score: 11 03/24/2016 2:46 PM CD T documented as of this encounter
--- OUTSIDE RECORDS SUMMARY | 2022-06-20 21:25 | XMS_ITS | Encounter Summary ---
:1985 Author Organization [facility] Address [address] [place] [address] Care Team Providers Name Role Phone Unavailable Primary Care Provider Unavailable Reason for Visit Physical Therapy (Routine) - Closed Specialty Diagnoses / Procedures Referred By Contact Refer red To Contact Diagnoses Pain Joint Ankle Left Tia Moon M.D. [facility] Procedures PT Evaluate and treat [address] [place] [address] Referral ID Status Reason Start Date Expiration Date Visits Requ ested Visits Authorized [id number] Closed 12/31/2021 12/31/2022 1 1 Encounter Details Date Type Department Care Team Description 02/02/2022 Comprehensive Visit Department of Torin Moon M.D. [address] [place] [address] Pain Joint Ankle Physical Medicine and Chris Brenner P.T., D.P.T. Left (Primary Dx) Rehabilitation in [place], [place] [address] [place] [phone] Social History Tobacco Use Types Packs/Day Years Used Date Smoking Tobacco: Never Smokeless Tobacco: Never Sex Assigned at Date Recorded Not on file documented as of this encounter Consult Notes Chris Brenner P.T., D.P.T. - 02/02/2022 4:30 PM CDT Physical Therapy Outpatient Evaluation/Treatment Physician Signature: Date Print Name: Time: By co-signing this note, the provider certifies the therapy being provided to this patient is reasonable and necessary for the diagnosis or treatment of this patient. SUBJECTIVE Patient's Name: Neda Valladares Referring Provider: Tia Moon M.D. Visit Diagnosis: 1. Pain Joint Ankle Left Reason for Referral: Post op left foot and ankle procedure. Onset Date: 12/10/21 Payor: [email or web address] / Plan: [email or web address] / Product Type: PPO / Epic Visit Count: 1 PERTINENT MEDICAL / SURGICAL HISTORY: There is no problem list on file for this patient. No past surgical history on file. Diagnostic Tests: X-ray Patient presents to outpatient physical therapy for evaluation of symptoms includin. Pain 2. Decreased range of motion 3. Weakness 4. Difficulty with exercises 5. Difficulty with prolonged ambulation 6. Difficulty with prolonged standing 7. Difficulty meeting work demands Overall patient reports status is improving . History of Present Illness:Patient is a pleasant 36 year old female presenting to Physical Therapy post op left ankle debridement and bunion removal. Initial incident occurred whe her left ankle gave out and she fell. She also had a previous ankle surgery 4 years ago and stated that never healed correctly. She states ambulation is painful. She has not been ambulating with a heel toe gait pattern. Shehas been keeping her foot in a neutral position. She enjoys exercises classes but has not attempted any classes recently. She has started wearing shoes. Pain is improving. Her ankle feels awkward and weak. 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 She has a history of pes planus and utilizes orthotics to help maintain foot positioning. She has 2 kids. She has a 2 year old and 8 year old. She states her 2 year old enjoys being carried. Enjoys spending time and playing with her children. She works as a keyboarding teacher and states she is usually on her takes between 11,000 and 12,000 steps per day. She recently followed up with the surgeon yesterday andhe said everything looks good. She has no restrictions. Patient does not need to follow up with the surgeon again unless she has no concerns. 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 Return to exercise classes and walking. Contact monitoring: PPE used during therapy: Therapist was wearing the following PPE throughout entire session: surgicalmask and eye protection Patient was wearing a mask during therapy session: yes OBJECTIVE REVIEW OF SYSTEMS History obtained from the patient PHYSICAL EXAM Pain: Pain Assessment Pain Assessment: 0-10 Numeric Pain Intensity Scale Pain Score: 4 Pain Type: Surgical pain Pain Location: Ankle Pain Orientation: Left Observation/Inspection: Patient is a normal appearing 36 year old female in no acute distress. She presents with expected posture of a 36 year old. Gait/Stairs: bilateral over pronation noted. Patient has flatfoot contact on left lower extremity. She was presents with decreased toe off. Palpation: No Hypertonicity noted in left ankle and foot musculature. Range of Motion: ROM - Lower Extremity Screen: Impaired left AROM Assessment AROM Assessment: LLE RLE AROM (degrees) R Ankle Dorsiflexion 0-20: 15 R Ankle Plantar Flexion 0-45: 40 R Ankle Inversion 0-35: 35 R Ankle Eversion 0-15: 15 LLE AROM (degrees) L Ankle Dorsiflexion 0-20: 15 L Ankle Plantar Flexion 0-45: 48 L Ankle Inversion 0-35: 30 L Ankle Enversion 0-15: 8 Strength:Strength - Lower Extremity Screen: Impaired left Strength Assessment Strength Assessment: LLE RLE Strength R Ankle Dorsiflexion: 5/5 R Ankle Plantar Flexion: 5/5 R Ankle Inversion: 4/5 R Ankle Eversion: 4/5 LLE Strength L Ankle Dorsiflexion: 4/5 L Ankle Plantar Flexion: 4/5 L Ankle Inversion: 4/5 L Ankle Eversion: 4/5 Ortho Exam Foot and Ankle Ability Measure (FAAM) Because of your foot and ankle how much difficulty do you have with: Standing: Moderate difficulty Walking on even ground: Moderate difficulty Walking on even ground without shoes: Moderate difficulty Walking up hills: Moderate difficulty Walking down hills: Moderate difficulty Going up stairs: Moderate difficulty Going down stairs: Moderate difficulty Walking on uneven grounds: Moderate difficulty Stepping up and down curbs: Moderate difficulty Squatting: Moderate difficulty Coming up on your toes: Moderate difficulty Walking initially: Slight difficulty Walking 5 minutes or less: Slight difficulty Walking approximately 10 minutes: Moderate difficulty Walking 15 minutes or greater: Extreme difficulty Home Responsibilities: Moderate difficulty Activities of daily living: Moderate difficulty Personal care: Slight difficulty Light to moderate work (standing, walking): Moderate difficulty Heavy work (push/pulling, climbing, carrying): Extreme difficulty Recreational activities: Moderate difficulty How would you rate your current level of function during your usual activities of daily living from 0 to 100 with 100 being your level of function prior to your foot or ankle problem and 0 being the inability to perform any of your usual daily activities: 50 % Sports Scale: Because of your foot and ankle how much difficulty do you have with: Running: Unable to do Jumping: Unable to do Landing: Unable to do Starting and stopping quickly: Moderate difficulty Cutting/lateral movements: Unable to do Low impact activities: Moderate difficulty Ability to perform activity with your normal technique: Moderate difficulty Ability to participate in your desired sport as long as you would like: Unable to do How would you rate your current level of function during your sports related activities from 0 to 100 with 100 being your level of function prior to your foot or ankle problem and 0 being the inabilityto perform any of your usual daily activities?: 40 Overall, how would you rate your current level of function? Overall, how would you rate your current level of function?: Abnormal Scoring ADL Total % Score: 51 Sports Total % Score: 19 Lower Extremity Functional Scale: LEFS Score: 52 / 80 points Lower the score = More disability Minimum Level of Detectable Change (90% Confidence): 9 points Cognition Arousal/Alertness: Appropriate responses to stimuli Attention: Addressed, no concerns noted Safety/Judgment: Addressed, no concerns noted TREATMENT Treatment today consisted of: Therapeutic Exercise: dorsiflexion: Red Thera-Band 20 reps Plantar flexion: Red Thera-Band 20 reps Eversion: Red Thera-Band 20 reps Inversion: Red Thera-Band 20 reps Home Exercise Program/Education:Access Code: [email or web address] URL: [email or web address] Date: 02/02/2022 Prepared by: Chris Brenner Exercises [...] - 7 x weekly - 20-30 reps Assessment Clinical Impression: Patient presents to physical therapy with signs and symptoms consistent with left ankle debridement and bunion removal. Impairments: Pain, weakness and decreased range of motion Functional deficits: Difficulty with ambulation, prolonged standing, meeting work demands and exercise. Rehab Potential: Patient has Excellent potential to achieve established physical therapy goals within the time frame outlined below, provided active participation in the physical therapy treatment planand home program. Comorbid Conditions: Arthritis Personal Factors: Age Clinical Presentation: Stable Examination elements: 1-2 Clinical Decision Making: Low complexity clinical decision making Functional Goals and Timeframes: PT Outpatient Goals PT Goal #1: Patient will tolerate 30 [...] 80%. PT Goal #4 Date: 05/05/22 Plan Patient was educated regarding evaluative findings, diagnosis, prognosis, potential risks and benefits of rehabilitation interventions. A collaborative effort was used to establish goals and plan of care. The patient was informed of the right to make decisions regarding care, including refusal of examination or treatment or selection of services from another provider if desired. The treatment plan may be progressed or modified based upon the patient's response to treatment. Physical Therapy Attestation Statement: Patient agrees with the plan of care and goals. Treatment Plan: Plan: Plan of care initiated Start of Plan of Care: 02/02/2022 PT Next Certification Date: 05/05/22 Number of Visits:10 visits PT Duration: 90 days PT Frequency: PT Frequency: 1 time per week Treatment interventions may include: Treatment/Interventions: Therapeutic exercise, Therapeutic functional activity, Neuromuscular re-education, Manual therapy, Gait training Plan for next session: Continue progress with seated and standing ankle strengthening. Closed chain strengthening. Time Spent with Patient Evaluations PT Eval - Low Complexity: 40 min Therapeutic Interventions Therapeutic Exercise (min): 10 min Time Tracking Total Timed Units (min): 10 min Total Treatment Time (min): 50 min documented in this encounter Plan of Treatment Not on filedocumented as of this encounter Visit Diagnoses Diagnosis Pain Joint Ankle Left - Primary documented in this encounter Additional Health Concerns Assessment Noted Time PHQ-9 Depression Total Score: 11 03/24/2016 2:46 PM CD T documented as of this encounter
--- OUTSIDE RECORDS SUMMARY | 2022-06-20 21:25 | XMS_ITS | Encounter Summary ---
:1985 Author Organization [facility] Address [address] [place] [address] Care Team Providers Name Role Phone Unavailable Primary Care Provider Unavailable Encounter Details Date Type Department Care Team Description 07/25/2014 Hospital Encounter HX [facility] KATHY C Yoselin Garrison i, NINFA, C.N.P., R. N. [address] [facility] [address] [place], [place] [address] (Wo rk) Social History Tobacco Use Types Packs/Day Years Used Date Smoking Tobacco: Never Assessed Sex Assigned at Date Recorded Not on file documented as of this encounter Last Filed Vital Signs Vital Sign Reading Time Taken Comments Blood Pressure 126/74 07/25/2014 10:10 AM GREIGE MENDER Pulse 93 07/25/2014 10:10 AM GREIGE MENDER Temperature - - Respiratory Rate 16 07/25/2014 10:10 AM GREIGE MENDER Oxygen Saturation - - Inhaled Oxygen Concentration - - Weight 88.4 kg (194 lb 14.2 oz) 07/25/2014 10:10 AM GREIGE MENDER Height 173 cm (5' 8.11) 07/25/2014 10:10 AM GREIGE MENDER Body Mass Index 29.54 07/25/2014 10:10 AM GREIGE MENDER documented in this encounter Medications at Time of Discharge Medication Sig Dispensed Refills Start Date End Date PNV no.95/ferrous fum/folic Take 1 tablet by 0 ac ( MULTIVITAMINS mouth daily. ORAL) documented as of this encounter Progress Notes Rebeca Garrison, NINFA, C.N.P. - 07/25/2014 10:04 AM CST [id number] CHIEF COMPLAINT/REASON FOR VISIT Cold symptoms for 3 weeks. Had laryngitis. HISTORY OF PRESENT ILLNESS Neda is a 29-year-old female who presents today with complaints of cold symptoms for the past 3 weeks. Patient's main complaint is cough producing yellow-green or clear mucus. Other symptoms include,clear rhinorrhea, sore throat, mild chest congestion. Denies sinus pain or fullness. Denies headache. She is requiring nighttime cold medication along with cough drops to sleep. Denies fever. She did not have her flu shot, but is inquiring about 1 today. She is not breast-feeding. Last menstrual period is at the present time. MEDICATIONS Azelex 20% topical cream for acne. Clindamycin 1% topical gel for acne. vitamin. ALLERGIES No known allergies. SYSTEMS REVIEW As described in history of present illness above. All other systems negative at this time. VITAL SIGNS Temperature 36.4 degrees Celsius, heart rate 93, respiratory rate 16, blood pressure 126/74, oxygen saturation 98% on room air. Height 173 cm, weight 88.4 kg. BMI 29.54. PHYSICAL EXAMINATION GENERAL: Patient is alert and oriented. In no acute distress. Good interaction with her 9-year-old son and 9-month-old daughter. SKIN: Warm and dry. No rashes noted. HEENT: Head: Normocephalic, atraumatic. Conjunctivae clear without erythema or exudate. PERRLA. Bilateral tympanic membranes with serous effusions present. No inflammation noted. Nasal turbinates severely enlarged and erythematous. Green mucus present. Oropharynx pink with trace of red irritation. NECK: Supple. No lymphadenopathy. CARDIAC: Normal S1, S2. Regular rate and rhythm. No murmur or extra sound noted. RESPIRATORY: Lung sounds clear to auscultation throughout all lobes. No wheezes, rales, or rhonchi. Noticeably hoarse voice. MUSCULOSKELETAL: Normal gait and station. Normal posture. IMPRESSION/REPORT/PLAN Will treat for sinusitis as using Omnicef 300 mg 1 by mouth twice daily x10 days. Discussed side effect profile with patient. Recommended try [id number] probiotics as directed and eat yogurt to offset any GI side effects. Continue supportive measures including fluids and rest. Advised patient that she is not a good candidate for flu mist at this time with her illness. She denies a history of asthma so advised her to call clinic when she is well to set up a nurse appointment to receive the flu mist. All questions of patient answered. Patient stated understanding and agreement with current plan. Rebeca Garrison N.P./pos Electronically Signed By: REBECA GARRISON MEDICAL CLAIMS SPECIALIST On: 08/01/2014 01:17 PM Source: [facility] [id number] Document Id: [id number] GE MENDER documented in this encounter Miscellaneous Notes Miscellaneous - Rebeca Garrison APRN, C.NMt. - 07/25/2014 10:37 AM GREIGE MENDER Ambulatory Patient Summary [address] [id number] Visit Information Name: NEDA STRINGER [facility] Number: [id number] Current Date: 07/25/2014 10:37:01 Physicians Attending Provider: REBECA GARRISON NP Primary Care Provider: PCP, CARLOS EDUARDO STRINGER NEDA ANNELISE has been given the following list of [...] Take Indications/Special Instructions/Comments/Notes for Patient Medication Changes/Routing azelaic acid topical (Azelex 20% topical cream) 1 maya, Topical, two times a day cefdinir (Omnicef 300 mg oral capsule) 1 cap, Oral, two times a day x 10 day(s) New Routed to [address] [address] clindamycin topical (clindamycin 1% topical gel) 1 maya, Topical, once a day multivitamin, ( Plus oral tablet) 1 Tablet(s), Oral, once a day Stop Taking the Following Medications: Medication list as of 07-25-14 10:37 Attention: If you have any medications at home that are not on this list, DO NOT take them until youcontact your provider for clarification. Give a copy of your medication list to your primary care provider. Update your medication list any time medications or doses are changed and carry your medication list at all times in case of emergency. Electronically Signed By: REBECA GARRISON MEDICAL CLAIMS SPECIALIST Signed On:25-JUL-2014 10:36:55 Your Allergies & Intolerances Substance Reaction Symptoms Category Comments No Known Allergies Drug Your Problem List Problem Status Onset Comments No Chronic Problems Active Your Upcoming Appointments Date Time Location Provider No Appointments found Attention: Contact your local Clinic if further appointment detail needed. Your Goals/Additional instructions: Source: [facility] POWERCHART Document Id: [id number] GE MENDER Miscellaneous - Rebeca Garrison APRN, C.N.P. - 07/25/2014 10:37 AM GREIGE MENDER Ambulatory Discharge Medication List [address] [id number] Visit Information Name: NEDA STRINGER [facility] Number: [id number] Visit Date: 07/25/2014 10:37:00 Attending Provider: REBECA GARRISON MEDICAL CLAIMS SPECIALIST Primary Care Provider: PCP, ELSEWHERE DARIUSERIC NEDA CASTELAN has been given the following list of medications: Your Medications It is important to take your medications as directed. Use a pill box or chart to help remind you to take your medications. Please let your doctor or nurse know if you have problems taking your medications. Medication/Strength How to Take Indications/Special Instructions/Comments/Notes for Patient Medication Changes/Routing azelaic acid topical (Azelex 20% topical cream) 1 maya, Topical, two times a day cefdinir (Omnicef 300 mg oral capsule) 1 cap, Oral, two times a day x 10 day(s) New Routed to [address] [address] clindamycin topical (clindamycin 1% topical gel) 1 maya, Topical, once a day multivitamin, ( Plus oral tablet) 1 Tablet(s), Oral, once a day Stop Taking the Following Medications: Medication list as of 07-25-14 10:37 Attention: If you have any medications at home that are not on this list, DO NOT take them until youcontact your provider for clarification. Give a copy of your medication list to your primary care provider. Update your medication list any time medications or doses are changed and carry your medication list at all times in case of emergency. Electronically Signed By: REBECA GARRISON MEDICAL CLAIMS SPECIALIST Signed On:25-JUL-2014 10:36:55 Additional Information: Source: [facility] POWERCHART Document Id: [id number] Electronically signed by Rebeca Garrison, BIOPROCESSING MANUFACTURING TECHNICIAN, C.N.P., R.N. at 07/25/2014 10:37 AM GREIGE MENDER Miscellaneous - Conversion, Historical Provider Ser - 07/25/2014 10:10 AM GREIGE MENDER Adult Cafeteria Operator Intake/History Adult Cafeteria Operator Intake/History Entered On: 07/25/2014 10:13 GREIGE MENDER Performed On: 07/25/2014 10:10 GREIGE MENDER by DAPHNEY HOLLIS LPN Intake Chief Complaint : Pt. in for cold symptoms for 3 weeks, beginning of Jun; Had laryngitis Temperature Core : 36.4 DegC(Converted to: 97.5 DegF) (LOW) Peripheral Pulse Rate : 93 /min Respiratory Rate : 16 /min Heart Rhythm : Regular Systolic Blood Pressure : 126 mmHg Diastolic Blood Pressure : 74 mmHg NIBP Mean : 91 mmHg BP Location : Right upper extremity Blood Pressure Cuff Size : Regular SpO2 : 98 % Oxygen Therapy : Room air Height : 173 cm(Converted to: 5 ft 8 inch(es), 68 inch(es)) Actual Weight : 88.4 kg(Converted to: 194 lb 14 oz) Weight Source : Standing scale Dosing Weight Clinic : 88.4 kg Clinic BSA : 2.06 Body Mass Index : 29.54 kg/m2 DAPHNEY HOLLIS LPN - 07/25/2014 10:10 GREIGE MENDER General Info Information Given By : Patient Preferred Communication Mode : Verbal Languages : Hungarian Is Patient Female and 13-50 no hysterectomy : Yes Status : Patient denies Are you ? : No TRUONGEULALIADAPHNEY Villatoro [facility] - 07/25/2014 10:10 GREIGE MENDER Subjective Pain Symptoms : No TRUONGEULALIAMOUNA VillatoroSAY [facility] - 07/25/2014 10:10 GREIGE MENDER Dependent Habits Tobacco Use/Currently Using : No Smoking Status : Never smoker TRUONGEULALIADAPHNEY Villatoro [facility] - 07/25/2014 10:10 GREIGE MENDER Tobacco Use Grid Last Use : never BUNNY DAPHNEYHORTENCIA DANIEL [facility] - 07/25/2014 10:10 GREIGE MENDER ID Screen Drug Resistant Organism : No Travel Within Last 21 Days : No TRUONGEULALIADAPHNEY Villatoro [facility] - 07/25/2014 10:10 GREIGE MENDER Source: [employer] Document Id: [id number] GREIGE MENDER!38 documented in this encounter Plan of Treatment Not on filedocumented as of this encounter Visit Diagnoses Not on filedocumented in this encounter
--- OUTSIDE RECORDS SUMMARY | 2022-06-20 21:25 | XMS_ITS | Encounter Summary ---
:1985 Author Organization [facility] Address [address] [place] [address] Care Team Providers Name Role Phone Unavailable Primary Care Provider Unavailable Reason for Visit Physical Therapy (Routine) - Canceled Specialty Diagnoses / Procedures Referred By Contact Refer red To Contact Diagnoses Pain Joint Ankle Left Tia Moon M.D. [facility] Procedures PT Ongoing treatment [address] [place] [address] Referral ID Status Reason Start Date Expiration Date Visits V isits Requested Authorized [id number] Canceled 01/03/2022 06/02/2022 99 99 Encounter Details Date Type Department Care Team Description 03/01/2022 Clinical Support Department of Physical Tia Moon M.D. [address] [place] [address] Pain Joint Ankle Medicine and Edward Coon P.T., D.P.T. Left Rehabilitation in [place], [place] [address] [place] [id number] Social History Tobacco Use Types Packs/Day Years Used Date Smoking Tobacco: Never Smokeless Tobacco: Never Sex Assigned at Date Recorded Not on file documented as of this encounter Progress Notes Edward Coon P.T., D.P.T. - 03/01/2022 4:00 PM CDT Physical Therapy Discharge Summary 04/25/2022: Patient was progressing well and was close to returning to work. She was tolerating increased activity and strength was improving. Patient cancelled last scheduled appointment and has not contacted to reschedule. Patient will be formally discharged from skilled Physical Therapy services at this time. Patient was seen from 02/02/2022 to 03/01/2022 for a total of 4 visits. Interventions provided in therapeutic exercise. Patient will require a new formal order to return to Physical Therapy. Physical Therapy Outpatient Treatment Note SUBJECTIVE Patient's Name: Neda Valladares Referring Provider: Tia Moon M.D. Visit Diagnosis: 1. Pain Joint Ankle Left Payor: [employer] / Plan: [employer] / Product Type: PPO / PT Next Certification Date: 05/05/22 [facility] Visit Count: 4 Patient comments: Patient reports that her ankle is feeling better today. She states pain has resolved. She is attempting to schedule the procedure on her right foot. Contact monitoring: PPE used during therapy: Therapist [...] Single Leg Heel Raise: 10 reps left Lunges on BOSU: 10 reps Squats on CHAVO: 10 reps Toe Raises Off 4 inch step: 10 reps Toe Walkin ft x 2 reps Heel Walkin ft x 2 reps Heel Raises off 4 inch step: 10 reps Seated Toe Flexion into Theraband: Red Theraband 20 reps Seated Great Toe Flexion into Theraband: red Theraband 20 reps Standing Short Foot: 10 reps with 3 second hold Tandem Stance on balance beam: x 2 reps Toe Splays: 10 reps Single Leg Stance on Balance Board: 20 sec Home Exercise Program/Education: Access Code: [email or web address] URL: [email or web address] Date: 02/02/2022 Prepared by: Edward Coon Exercises Ankle Dorsiflexion with Resistance - 2 [...] compliance. Assessment Clinical Impression: Patient continues to progress well. She is having decreased pain today. She continues to have weakness on her left gastroc and soleus. Facilitated ankle strengthening and stabilitywith BOSU activities and heel raises. Patient tolerates well with no increased complaints of pain or discomfort. Patient is appropriate for continued skilled physical therapy services to increase strength and decrease pain. Functional Goals and Timeframes: [...] (min): 32 min documented in this encounter Miscellaneous Notes Addendum Note - Edward Coon P.T., D.P.T. - 03/01/2022 4:00 PM CDT Addended by: EDWARD COON on: 04/25/2022 02:44 PM Modules accepted: Orders documented in this encounter Plan of Treatment Not on filedocumented as of this encounter Visit Diagnoses Diagnosis Pain Joint Ankle Left documented in this encounter Additional Health Concerns Assessment Noted Time PHQ-9 Depression Total Score: 11 03/24/2016 2:46 PM CD T documented as of this encounter
--- OUTSIDE RECORDS SUMMARY | 2022-06-20 21:26 | XMS_ITS | Encounter Summary ---
:1985 Author Organization [facility] Address [address] [place] [address] Care Team Providers Name Role Phone Unavailable Primary Care Provider Unavailable Encounter Details Date Type Department Care Team Description 11/07/2011 Hospital Encounter HX NO MAPPING Provider, Historical Social History Tobacco Use Types Packs/Day Years Used Date Smoking Tobacco: Never Assessed Sex Assigned at Date Recorded Not on file documented as of this encounter Plan of Treatment Not on filedocumented as of this encounter Procedures Procedure Name Priority Date/Time Associated Diagnosis Comme nts STREP GROUP A PCR Routine 11/07/2011 11:20 AM Res ults for this CDT procedure are i n the results section. documented in this encounter Results Strep Group A PCR (11/07/2011 11:20 AM CDT) [facility] Method Time Signature Throat Strep A POWERCHART Culture HXPre Negative for POWERCHART Group A Strep by culture. HXFinal Negative for POWERCHART Group A Strep by culture. Specimen Anatomical Collection Method Collection Time Receive d Time (Source) Location / / Volume Laterality Throat 11/07/2011 11:20 11/07/2011 3:47 AM CDT PM CDT Historical Provider LAB MICROBIOLOGY - GENERAL O RDERABLES Performing Organization Address City/State/ZIP Code Phon e Number POWERCHART documented in this encounter Visit Diagnoses Not on filedocumented in this encounter
--- OUTSIDE RECORDS SUMMARY | 2022-06-20 21:26 | XMS_ITS | Encounter Summary ---
:1985 [facility] Address [address] [place] [address] Care Team Providers Name Role Phone Unavailable Primary Care Provider Unavailable Encounter Details Date Type Department Care Team Description 11/30/2012 Hospital Encounter HX [facility] [place] [address] Social History Tobacco Use Types Packs/Day Years Used Date Smoking Tobacco: Never Assessed Sex Assigned at Date Recorded Not on file documented as of this encounter Last Filed Vital Signs Vital Sign Reading Time Taken Comments Blood Pressure 104/70 11/30/2012 11:20 AM CDT Pulse 76 11/30/2012 11:20 AM CDT Temperature - - Respiratory Rate - - Oxygen Saturation - - Inhaled Oxygen Concentration - - Weight 80.1 kg (176 lb 9.4 oz) 11/30/2012 11:20 AM CDT Height - - Body Mass Index 26.76 11/05/2012 3:38 PM CDT documented in this encounter Medications at Time of Discharge Medication Sig Dispensed Refills Start Date End Date PNV no.95/ferrous fum/folic Take 1 tablet by 0 ac ( MULTIVITAMINS mouth daily. ORAL) documented as of this encounter Progress Notes Rox Dykes M.D. - 11/30/2012 11:06 AM CDT [id number] HISTORY OF PRESENT ILLNESS The patient is a 27-year-old G0, P0 here for evaluation of right lower quadrant abdominal and pelvicpain off and on for the past 2 weeks. The patient states that when she wakes up in the morning the pain is better; however, as the day progresses it gets worse. It was really bad this week Monday and Monday when she had to almost double over in school when she was working. Right now intensity is about a 4/10. No nausea, vomiting, fever associated. She has mild breast tenderness. She took 2 urine tests, 1 on 11/17 which was negative and the last 1 on 11/29, yesterday, which was negative also. She has been off the NuvaRing for a month now. She did not get her periods when she discontinued the NuvaRing. ALLERGIES No known drug allergies. PAST MEDICAL/SURGICAL HISTORY GYNECOLOGIC: Menarche at age 11. Last menstrual period 10/11/2012, light, 2 to 3 days. She used the last NuvaRing after she got the period and then since after that she did not get a period. She has been on control since she was 16 years of age. Her last Pap smear was 11/01/2011, normal. No history of abnormal Pap smears. No history of STDs. OBSTETRIC: G0, P0. MEDICAL: Noncontributory. SURGICAL: Noncontributory. SOCIAL HISTORY The patient is , works at [employer]. No history of drug use or smoking. Drinks alcohol socially. She is and sexually active just with her . FAMILY HISTORY History of hypertension in father. No other significant health history in the family. SYSTEMS REVIEW Right lower quadrant abdominal pain. PHYSICAL EXAMINATION GENERAL: The patient is conscious, comfortable in supine and sitting positions. VITAL SIGNS: Temperature 37, heart rate 78 per minute. Blood pressure 136/81 mmHg. Pulse ox 100%. LUNGS: Clear to auscultation. CARDIOVASCULAR: Regular rate and rhythm. No murmurs, rubs or gallops. ABDOMEN: The patient has moderate tenderness in the right lower quadrant and right pelvic area. No rebound. Mild guarding. No tenderness on the left side of the abdomen or suprapubic area. : On speculum exam cervix looks normal. On vaginal exam mild cervical motion tenderness is noted. No uterine tenderness. The uterus is anteverted, normal size. Left adnexa no tenderness or mass noted. Right adnexa mild tenderness, no mass noted. IMPRESSION/REPORT/PLAN A 27-year-old G0, P0 with right lower quadrant pain for evaluation and treatment. 1. As the patient has not got a period after she discontinued the NuvaRing, even though she had 2 negative urine tests, I would do a qualitative serum beta hCG to rule out or ectopic . 2. The patient will be getting a pelvic ultrasound done to rule out other pelvic-related causes of pain on 12/03/2012 at 4 p.m. I would consider surgical consult with Dr. Hicks if the pain persists or gets worse and we do not find any causes of the pain related to the uterus, tubes or ovaries. I would also consider a CAT scan to rule out appendicitis. 3. CBC with differential count was also ordered today. Rox Dykes M.D./braxton Electronically Signed By: ROX DYKES MD On: 12/04/2012 11:19 AM Source: [facility] MHSDOLBEYNONRADSYS Document Id: [id number] documented in this encounter Miscellaneous Notes Miscellaneous - Ashley Pizarro, R.N. - 01/30/2013 11:13 AM CDT FYI - New Document Contains Addenda Addendum by ROX DYKES MD on 30 January 2013 17:02:59 CDT From: ROX DYKES MD To: ASHLEY PIZARRO RN; Sent: 01/30/2013 17:02:59 CDT Subject: RE: FYI - New Noted-MJ From: ASHLEY PIZARRO RN To: ROX DYKES MD; Sent: 01/30/2013 11:13:39 CDT Subject: FYI - New FYI only--Pt calling today to let us know that she had a positive test this AM. Her LMP was 01/01/13. She had a few general questions as to when to come in but also concerned that she has beenusing cold medication, eating seafood and has a few alcoholic drinks before she knew. Pt told it happens but it is ok and that she should obviously now refrain since she is . Pt told to start a vitamin and to set up appointment at 8-10 weeks. She can call us if she has any further questions or concerns Pt understands and agrees. Source: [facility] POWERCHART Document Id: [id number] Electronically signed by Conversion, [facility] Assistant Womens Volleyball Coach [id number] at 12/21/2016 4:18 AM CDT Rox Daily M.D. - 11/30/2012 4:51 PM CDT Results Notification Document Contains Addenda Addendum by ASHLEY PIZARRO RN on 03 Dec 2012 15:50:38 CDT Pt notified on 11/30/12. From: ROX DYKES MD To: ASHLEY PIZARRO RN; Sent: 11/30/2012 16:51:43 CDT ! Show up: 11/30/2012 21:51:43 [facility] Subject: Results Notification Actions: Notify patient of results Results: Date Result Name Value Ref Range 11/30/2012 12:00 Beta hCG Ql Negative (Negative - ) Source: [facility] POWERCHART Document Id: [id number] Electronically signed by Conversion, [facility] Assistant Womens Volleyball Coach [id number] at 12/21/2016 4:18 AM CDT Rox Daily M.D. - 11/30/2012 2:24 PM CDT Results Notification Document Contains Addenda Addendum by ASHLEY PIZARRO RN on 03 Dec 2012 15:50:18 CDT Pt notified on 11/30/12. From: ROX DYKES MD To: ASHLEY PIZARRO RN; Sent: 11/30/2012 14:24:28 CDT ! Show up: 11/30/2012 19:24:28 [facility] Subject: Results Notification Actions: Notify patient of results Reminder Comments: Normal WBC count, does not indicate infection-MJP Results: Date Result Name Ind Value Ref Range 11/30/2012 12:00 Hgb 14.5 g/dL (12.0 - 15.5) 11/30/2012 12:00 Hct 42.0 % (34.9 - 44.5) 11/30/2012 12:00 WBC 6.2 x10(9)/L (3.4 - 10.5) 11/30/2012 12:00 RBC 4.73 x10(12)/L (3.90 - 5.03) 11/30/2012 12:00 MCV 88.8 fL (82.0 - 98.0) 11/30/2012 12:00 RDW 12.3 % (11.9 - 15.5) 11/30/2012 12:00 Platelet 173 x10(9)/L (150 - 450) 11/30/2012 12:00 Neutro % 61.8 % (44.0 - 71.0) 11/30/2012 12:00 Lymph % 25.0 % (17.0 - 42.0) 11/30/2012 12:00 Crenshaw % 12.7 % (4.0 - 15.0) 11/30/2012 12:00 Eos % 0.3 % (0.0 - 7.0) 11/30/2012 12:00 Baso % 0.2 % (0.0 - 3.0) 11/30/2012 12:00 Neutro Absolute 3.85 10(9)/L (1.70 - 7.00) 11/30/2012 12:00 Lymph Absolute 1.56 x10(9)/L (0.90 - 2.90) 11/30/2012 12:00 Crenshaw Absolute 0.79 x10(9)/L (0.30 - 0.90) 11/30/2012 12:00 Eos Absolute (L) 0.02 x10(9)/L (0.05 - 0.50) 11/30/2012 12:00 Baso Absolute 0.01 x10(9)/L (0.00 - 0.30) 11/30/2012 12:00 Differential? Auto Source: [facility] POWERCHART Document Id: [id number] Electronically signed by Conversion, [facility] Assistant Womens Volleyball Coach [id number] at 12/21/2016 4:18 AM CDT Miscellaneous - Ashley Pizarro R.N. - 11/30/2012 11:20 AM CDT Adult Superintendent Pipelines Intake/History Adult Superintendent Pipelines Intake/History Entered On: 11/30/2012 11:23 CDT Performed On: 11/30/2012 11:20 CDT by ASHLEY PIZARRO loss prevention manager Chief Complaint : Pt is here today for right sided pain. Pt went off Nuvaring in September and has not had period yet. LMP Date : 10/11/2012 Ambulatory Intake Additional Information : last pap Peripheral Pulse Rate : 76 /min Systolic Blood Pressure : 104 mmHg Diastolic Blood Pressure : 70 mmHg NIBP Mean : 81 mmHg Actual Weight : 80.1 kg(Converted to: 176 lb 9 oz) Dosing Weight Clinic : 80.1 kg ASHLEY PIZARRO RN - 11/30/2012 11:20 CDT General Info Information Given By : Patient Languages : Sami ASHLEY PIZARRO RN - 11/30/2012 11:20 CDT Subjective Pain Symptoms : Yes ASHLEY PIZARRO RN - 11/30/2012 11:20 CDT Pain Pain Assessment Grid Pain 1 Location : Pelvic Laterality : Right Intensity : 2 ASHLEY PIZARRO RN - 11/30/2012 11:20 CDT Dependent Habits Tobacco Use/Currently Using : No Smoking Status : Never smoker ASHLEY PIZARRO RN - 11/30/2012 11:20 CDT [facility] Document Id: [id number] CDT!25 documented in this encounter Plan of Treatment Not on filedocumented as of this encounter Procedures Procedure Name Priority Date/Time Associated Diagnosis Comme nts AUTOMATED Routine 11/30/2012 12:00 PM Results for this DIFFERENTIAL, B CDT procedure ar e in the results section. CBC WITH Routine 11/30/2012 12:00 PM Results for this DIFFERENTIAL, B CDT procedure ar e in the results section. TEST Routine 11/30/2012 12:00 PM Result s for this (HCG), S CDT procedure are i n the results section. documented in this encounter Results (ABNORMAL) Automated Differential (11/30/2012 12:00 PM CDT) Patholo gist Method Time Signature Neutro % 61.8 44.0 - POWERCHART 71.0 Lymphocytes % 25.0 17.0 - POWERCHART 42.0 HX Crenshaw % 12.7 4.0 - 15.0 POWERCHART HX Eos % 0.3 0.0 - 7.0 POWERCHART HX Baso % 0.2 0.0 - 3.0 POWERCHART Absolute 3.85 1.70 - POWERCHART Neutrophils 7.00 109L Lymphocytes 1.56 0.90 - POWERCHART 2.90 X109L Monocytes 0.79 0.30 - POWERCHART 0.90 X109L Eosinophils 0.02 (L) 0.05 - POWERCHART 0.50 X109L Absolute 0.01 0.00 - POWERCHART Basophil 0.30 X109L Specimen Anatomical Collection Method Collection Time Receive d Time (Source) Location / / Volume Laterality Blood 11/30/2012 12:00 11/30/2012 PM CDT 12:00 PM CDT Rox Dykes M.D. LAB BLOOD ADD-ON Performing Organization Address City/State/ZIP Code Phon e Number POWERCHART CBC with Differential (11/30/2012 12:00 PM CDT) P athologist Signature Leukocytes 6.2 3.4 - 10.5 POWERCHART X109L Erythrocytes 4.73 3.90 - POWERCHART 5.03 G7103T Hemoglobin 14.5 12.0 - POWERCHART 15.5 GDL Hematocrit 42.0 34.9 - POWERCHART 44.5 MCV 88.8 82.0 - POWERCHART 98.0 FL HX RDW 12.3 11.9 - POWERCHART 15.5 Platelet Count 173 150 - 450 POWERCHART X109L HXDifferential? Auto POWERCHART Specimen (Source) Anatomical Collection Method Collection Time Re ceived Time Location / / Volume Laterality Blood 11/30/2012 12:00 PM CDT Rox Dykes M.D. LAB BLOOD ADD-ON Performing Organization Address City/State/ZIP Code Phon e Number POWERCHART hCG ( Test), Jabari Ventura (11/30/2012 12:00 PM CDT) P athologist Signature HXBeta hCG Ql Negative Negative POWERCHART Comment: Performed on the E411 Specimen (Source) Anatomical Collection Method Collection Time Re ceived Time Location / / Volume Laterality Blood 11/30/2012 12:00 PM CDT Rox Dykes M.D. LAB BLOOD ADD-ON Performing Organization Address City/State/ZIP Code Phon e Number POWERCHART documented in this encounter Visit Diagnoses Not on filedocumented in this encounter
--- OUTSIDE RECORDS SUMMARY | 2022-06-20 21:26 | XMS_ITS | Encounter Summary ---
:1985 Author Organization [facility] Address [address] [place] [address] Care Team Providers Name Role Phone Unavailable Primary Care Provider Unavailable Encounter Details Date Type Department Care Team Description 12/04/2012 Hospital Encounter HX [facility] [place] [address] Social History Tobacco Use Types Packs/Day Years Used Date Smoking Tobacco: Never Assessed Sex Assigned at Date Recorded Not on file documented as of this encounter Medications at Time of Discharge Medication Sig Dispensed Refills Start Date End Date PNV no.95/ferrous fum/folic Take 1 tablet by 0 ac ( MULTIVITAMINS mouth daily. ORAL) documented as of this encounter Miscellaneous Notes Miscellaneous - Rox Dykes M.D. - 12/10/2012 9:08 AM CDT Results Notification Document Contains Addenda Addendum by GOLDIE COX RN on 13 Dec 2012 15:33:51 CDT Pt notified and has her repeat US set up for next month. From: ROX DYKES MD To: GOLDIE COX RN; Sent: 12/10/2012 09:08:43 CDT ! Show up: 12/10/2012 14:08:43 [facility] Subject: Results Notification Actions: Notify patient of results Reminder Comments: Normal, will repeat US in 8 weeks to see resolution of complex cyst, unless patient has symptoms earlier-MJP Results: Date Result Name Value Ref Range 11/30/2012 12:00 CA 125-Long 8 unit/mL (<35 - ) Source: [facility] POWERCHART Document Id: [id number] Electronically signed by Conversion, [facility] Derrick Car Operator [id number] at 12/21/2016 4:18 AM CDT documented in this encounter Plan of Treatment Not on filedocumented as of this encounter Procedures Procedure Name Priority Date/Time Associated Diagnosis Comme nts CANCER AG 125 (CA Routine 11/30/2012 12:00 PM Res ults for this 125), S CDT procedure are i n the results section. documented in this encounter Results CA 125 (Cancer Antigen 125) (11/30/2012 12:00 PM CDT) athologist Signature Cancer Ag 125 8 <35 UNITML POWERCHART (CA 125), S Comment: The testing method is an immunoenzymatic assay manufactured by [employer] and performed on the [employer]ove[employer] DxI 800. Values obtained with different assay met hods or kits may be different and cannot be used interchangeably. Test results cannot be interpreted as ab solute evidence for the presence or absence of malignant disease. Test Performed by: [place] [address] Trim Installer: Rachid herrera III, M.D. Specimen (Source) Anatomical Collection Method Collection Time Re ceived Time Location / / Volume Laterality Blood 11/30/2012 12:00 PM CDT Rox Dykes M.D. LAB BLOOD ADD-ON Performing Organization Address City/State/ZIP Code Phon e Number POWERCHART documented in this encounter Visit Diagnoses Not on filedocumented in this encounter
--- OUTSIDE RECORDS SUMMARY | 2022-06-20 21:26 | XMS_ITS | Encounter Summary ---
:1985 Author Organization [facility] Address [address] [place] [address] Care Team Providers Name Role Phone Unavailable Primary Care Provider Unavailable Encounter Details Date Type Department Care Team Description 03/03/2014 Hospital Encounter HX [facility] MAN Ty Cordero M.D. [address] [place] [id number] (Wo rk) Social History Tobacco Use Types Packs/Day Years Used Date Smoking Tobacco: Never Assessed Sex Assigned at Date Recorded Not on file documented as of this encounter Last Filed Vital Signs Vital Sign Reading Time Taken Comments Blood Pressure 124/82 03/03/2014 11:03 AM CDT Pulse 80 03/03/2014 11:03 AM CDT Temperature - - Respiratory Rate - - Oxygen Saturation - - Inhaled Oxygen Concentration - - Weight 87.6 kg (193 lb 2 oz) 03/03/2014 11:03 AM CDT Height 173 cm (5' 8.11) 03/03/2014 11:03 AM CDT Body Mass Index 29.27 03/03/2014 11:03 AM CDT documented in this encounter Medications at Time of Discharge Medication Sig Dispensed Refills Start Date End Date PNV no.95/ferrous fum/folic Take 1 tablet by 0 ac ( MULTIVITAMINS mouth daily. ORAL) documented as of this encounter Progress Notes Ty Kiran M.D. - 03/03/2014 10:51 AM CDT [id number] CHIEF COMPLAINT/REASON FOR VISIT Patient presents for right foot injury 2 days ago. She was playing in the outfield when a fly ball got under her glove and hit the top of her foot. She states that it has been painful over the instep since then. She is unable to plantar flex toes all the way. She is also only able to dorsiflex it completely. PAST MEDICAL/SURGICAL HISTORY Past medical history is negative. SOCIAL HISTORY The patient is a nonsmoker and drinks occasional alcohol. FAMILY HISTORY Significant for parents with hypertension and brother with hypertension. SYSTEMS REVIEW The patient denies any other injury. She has been able to bear weight on the foot. PHYSICAL EXAMINATION Heart rate 80, blood pressure 124/82, height 173, weight 87.6, BMI 39.2. GENERAL: The patient appears to be in no distress. She walks with a slight antalgic gait, favoring the right foot. The right foot reveals tenderness over the first, second and third metatarsals. This extends to the MP joints. There is some discomfort with passive dorsiflexion of the toes. There is some mild edema over the dorsum. Ankle motion appears normal without any soreness. X-ray of the affected foot shows no fractures. IMPRESSION/REPORT/PLAN Contusion right foot. PLAN: 1. Tylenol or ibuprofen as needed for discomfort. 2. The patient followup if she is having more problems in a week. Ty Kiran M.D./pos Electronically Signed By: TY KIRAN MD On: 03/24/2014 11:47 PM Source: [facility] MHSDOLBEYNONRADSYS Document Id: [id number] documented in this encounter Miscellaneous Notes Miscellaneous - Ty Kiran M.D. - 03/03/2014 12:41 PM CDT Ambulatory Patient Summary [address] [id number] Visit Information Name: WINSTON STRINGER [facility] Number: [id number] Current Date: 03/03/2014 12:41:26 Physicians Attending Provider: TY KIRAN MD Primary Care Provider: TY KIRAN MD WINSTON STRINGER has been given the following list of [...] 1 maya, Topical, two times a day clindamycin topical (clindamycin 1% topical gel) 1 maya, Topical, once a day esomeprazole (NexIUM) Oral, once a day multivitamin, ( Plus oral tablet) 1 Tablet(s), Oral, once a day Stop Taking the Following Medications: ranitidine (ranitidine 75 mg oral tablet) Medication list as of 03-03-14 12:41 Attention: If you have any medications at home that are not on this list, DO NOT take them until youcontact your provider for clarification. Give a copy of your medication list to your primary care provider. Update your medication list any time medications or doses are changed and carry your medication list at all times in case of emergency. Electronically Signed By: TY KIRAN MD Signed On:03-MAR-2014 12:41:21 Your Allergies & Intolerances Substance Reaction Symptoms Category Comments No Known Allergies Drug Your Problem List Problem Status Onset Comments No Problems found Your Upcoming Appointments Date Time Location Reason Provider No Appointments found Attention: Contact your local Clinic if further appointment detail needed. Your Goals/Additional instructions: Source: [facility] POWERCHART Document Id: [id number] Miscellaneous - Ty Kiran M.D. - 03/03/2014 12:41 PM CDT Ambulatory Discharge Medication List [address] [id number] Visit Information Name: WINSTON STRINGER [facility] Number: [id number] Visit Date: 03/03/2014 12:41:24 Attending Provider: TY KIRAN MD Primary Care Provider: TY KIRAN MD WINSTON STRINGER has been given the following list of [...] 1 maya, Topical, two times a day clindamycin topical (clindamycin 1% topical gel) 1 maya, Topical, once a day esomeprazole (NexIUM) Oral, once a day multivitamin, ( Plus oral tablet) 1 Tablet(s), Oral, once a day Stop Taking the Following Medications: ranitidine (ranitidine 75 mg oral tablet) Medication list as of 03-03-14 12:41 Attention: If you have any medications at home that are not on this list, DO NOT take them until youcontact your provider for clarification. Give a copy of your medication list to your primary care provider. Update your medication list any time medications or doses are changed and carry your medication list at all times in case of emergency. Electronically Signed By: TY KIRAN MD Signed On:03-MAR-2014 12:41:21 Additional Information: Source: [facility] POWERCHART Document Id: [id number] Miscellaneous - Yolanda Castro LDaniellaPDaniellaN. - 03/03/2014 11:03 AM CDT Adult Packaging Associate Intake/History Adult Packaging Associate Intake/History Entered On: 03/03/2014 11:08 CDT Performed On: 03/03/2014 11:03 CDT by YOLANDA CASTRO VISUAL JOURNALIST Intake Chief Complaint : Injured right foot 2 days ago when hit by a fly ball. it feels funny. I can't roll it all the way up. RTW next Mon. Peripheral Pulse Rate : 80 /min Heart Rhythm : Regular Systolic Blood Pressure : 124 mmHg Diastolic Blood Pressure : 82 mmHg NIBP Mean : 96 mmHg BP Location : Right upper extremity Blood Pressure Cuff Size : Regular Height : 173 cm(Converted to: 5 ft 8 inch(es), 68 inch(es)) Actual Weight : 87.6 kg(Converted to: 193 lb 2 oz) Weight Source : Standing scale Dosing Weight Clinic : 87.6 kg Clinic BSA : 2.05 Body Mass Index : 29.27 kg/m2 YOLANDA CASTRO LPN - 03/03/2014 11:03 CDT General Info Information Given By : Patient Languages : Sinhala Is Patient Female and 13-50 no hysterectomy : Yes Status : Patient denies Are you ? : Yes YOLANDA CASTRO LPN - 03/03/2014 11:03 CDT Subjective Pain Symptoms : Yes YOLANDA CASTRO LPN - 03/03/2014 11:03 CDT Pain Pain Assessment Grid Pain 1 Intensity : 4 YOLANDA CASTRO LPN - 03/03/2014 11:03 CDT Effects of Pain Grid Daily Life : Severe Sleep : Mild [place]OL[place]DA A[place]ON LPN - 03/03/2014 11:03 CDT Dependent Habits Tobacco Use/Currently Using : No Smoking Status : Never smoker Alcohol Use : Yes YOLANDA CASTRO LPN - 03/03/2014 11:03 CDT Source: [employer] Document Id: [id number] CDT!35 documented in this encounter Plan of Treatment Not on filedocumented as of this encounter Procedures Procedure Name Priority Date/Time Associated Diagnosis Comme nts DX FOOT RIGHT 3+ Routine 03/03/2014 11:39 AM Resu lts for this VIEWS CDT procedure are i n the results section. documented in this encounter Results DX Foot Right 3+ Views (03/03/2014 11:39 AM CDT) Anatomical Region Laterality Modality Lower Extremity, Foot Right Radiographic Imagi ng Specimen (Source) Anatomical Collection Method Collection Time Re ceived Time Location / / Volume Laterality 03/03/2014 11:39 AM CDT Addenda Addendum by Provider, Tena Louie 03/03/2014 11:39 AM CDT RAD^^^MA XR Foot Right 3 or more views 03/03/2014 11:39:14 Narrative 03/03/2014 1:01 PM CDT COMPARISON: None. HISTORY: 28 year old female with right f oot pain, struck by a ball on instep.. Findings: There is no acute right foot o sseous abnormality. Bone mineralization is within normal limits. The visualized joint spaces are preserved. There is right foot first metatarsus varus with hallux valgus. Impression: No acute right foot osseous abnormality. Procedure Note Ehsan Thomas M.D. / Provider, Qamar correa M.D. - 12/03/2016 COMPARISON: None. HISTORY: 28 year old female with right f oot pain, struck by a ball on instep.. Findings: There is no acute right foot o sseous abnormality. Bone mineralization is within normal limits. The visualized joint spaces are preserved. There is right foot first metatarsus varus with hallux valgus. Impression: No acute right foot osseous abnormality. Marcus Berry XEOMN IMG DIAGNOSTIC IMAGING PROCE KG documented in this encounter Visit Diagnoses Not on filedocumented in this encounter
--- OUTSIDE RECORDS SUMMARY | 2022-06-20 21:26 | XMS_ITS | Encounter Summary ---
:1985 Author Organization [facility] Address [address] [place] [address] Care Team Providers Name Role Phone Unavailable Primary Care Provider Unavailable Encounter Details Date Type Department Care Team Description 05/20/2013 Hospital Encounter HX [facility] [place] [address] Social History Tobacco Use Types Packs/Day Years [...] encounter Progress Notes Rox Dykes M.D. - 05/20/2013 4:22 PM CDT [id number] HISTORY OF PRESENT ILLNESS The patient is a 27-year-old, G1, P0 at 19 weeks' and 6 days' gestation, complaining of cough without expectoration, and sore throat today. No history of fever. PHYSICAL EXAMINATION On examination, examination of nasopharynx reveals mild erythema in her throat. Group A strep culture was done today. Lungs clear to auscultation bilaterally. Cardiovascular regular rate and rhythm. Abdomen soft, 20 weeks noted. heart tones positive. Pelvic exam was deferred. IMPRESSION/REPORT/PLAN A 27-year-old, G1, P0, at 19 and 6 weeks' with mild pharyngitis. Patient was asked to do expectant management, warm salt water gargles every 4 to 6 hours, antiseptic Chloraseptic throat spray for pain in her throat, drink lots of warm fluids. Group A strep throat culture result is awaited. Rox Dykes M.D./richard Electronically Signed By: ROX DYKES MD On: 05/28/2013 03:25 PM Source: [facility] MHSDOLBEYNONRADSYS Document Id: [id number] ITAL CARRIER documented in this encounter Miscellaneous Notes Miscellaneous - Rox Dykes M.D. - 05/27/2013 10:12 AM CST The Coding Query done From: HARSHA RANDALL To: ROX DYKES MD; HARSHA RANDALL; Sent: 05/27/2013 06:51:12 [facility] Subject: The Coding Query Neda Perkins has a throat culture with her OB visit on 05-20-13. Can you dictate for that visit. thanks Harsha Source: [facility] POWERCHART Document Id: [id number] Miscellaneous - Rox Dykes M.D. - 05/27/2013 10:12 AM CST RE: The Coding Query From: ROX DYKES MD To: HARSHA RANDALL; Sent: 05/27/2013 10:12:44 [facility] Subject: RE: The Coding Query done From: HARSHA RANDALL To: ROX DYKES MD; HARSHA RANDALL; Sent: 05/27/2013 06:51:12 [facility] Subject: The Coding Query Neda Perkins has a throat culture with her OB visit on 05-20-13. Can you dictate for that visit. thanks Harsha Source: [facility] [employer]CHART Document Id: [id number] Rox Daily M.D. - 05/22/2013 9:36 AM CDT Results Notification Document Contains Addenda Addendum by ASHLEY PIZARRO RN on 22 May 2013 15:42:32 CDT Pt notified of culture results. From: ROX DYKES MD To: ASHLEY PIZARRO RN; Sent: 05/22/2013 09:36:05 CDT ! Show up: 05/22/2013 14:36:05 [place] Subject: Results Notification Actions: Notify patient of results Reminder Comments: Negative Results: Date Result Type Ind Result Name MBO Review Rapid Strep Confirmation Source: [facility] [employer] Document Id: [id number] Rox Daily M.D. - 05/21/2013 2:23 PM CDT Results Notification Document Contains Addenda Addendum by ASHLEY PIZARRO RN on 22 May 2013 15:42:16 CDT Pt notified. From: ROX DYKES MD To: ASHLEY PIZARRO RN; Sent: 05/21/2013 14:23:52 CDT ! Show up: 05/21/2013 19:23:52 [facility] Subject: Results Notification Actions: Notify patient of results Reminder Comments: Negative Results: Date Result Type Ind Result Name MBO Review Rapid Strep Confirmation Source: [facility] [employer] Document Id: [id number] Rox Daily M.D. - 05/21/2013 7:51 AM CDT Results Notification Document Contains Addenda Addendum by ASHLEY PIZARRO RN on 22 May 2013 15:42:04 CDT Pt notified at visit. From: ROX DYKES MD To: ASHLEY PIZARRO RN; Sent: 05/21/2013 07:51:17 CDT ! Show up: 05/21/2013 12:51:17 [facility] Subject: Results Notification Actions: Notify patient of results Reminder Comments: Negative Results: Date Result Type Ind Result Name MBO Review Rapid Strep A Source: [facility] [employer]day Document Id: [id number] Miscellaneous - Ashley Pizarro RHolger - 04/23/2013 1:35 PM CDT OB Zantac concerns Document Contains Addenda Addendum by ASHLEY PIZARRO RN on 23 April 2013 14:53:27 CDT Left message for pt that this is OK. Addendum by ROX DYKES MD on 23 April 2013 14:35:02 CDT From: ROX DYKES MD To: ASHLEY PIZARRO RN; Sent: 04/23/2013 14:35:02 CDT Subject: RE: OB Zantac concerns Zantac is preg Category B, so OK with ga-MJP From: ASHLEY PIZARRO RN To: ROX DYKES MD; Sent: 04/23/2013 13:35:09 CDT Subject: OB Zantac concerns Pt is 16 weeks and states that she did see GI today Dr. Leland Navarro and she was given an Rx for Zantac 75 mg BID. Pt is wanting to make sure this is ok with you. Please advise. Source: [facility] POWERCHART Document Id: [id number] documented in this encounter Plan of Treatment Not on filedocumented as of this encounter Procedures Procedure Name Priority Date/Time Associated Diagnosis Comme nts RAPID STREP A Routine 05/20/2013 5:00 PM Results for this SCREEN CDT procedure are i n the results section. RAPID STREP A Routine 05/20/2013 5:00 PM Results for this SCREEN CDT procedure are i n the results section. documented in this encounter Results Rapid Strep A Screen (05/20/2013 5:00 PM CDT[facility] Signature HXRapid Strep POWERCHART Confirmation HXPre Negative for POWERCHART Group A Strep by culture. HXFinal Negative for POWERCHART Group A Strep by culture. Specimen Anatomical Collection Method Collection Time Receive d Time (Source) Location / / Volume Laterality Throat 05/20/2013 5:00 PM 3 5:00 CDT PM CDT Rox Dykes M.D. LAB MICROBIOLOGY - GENERAL O JEWEL Performing Organization Address [facility] Phon e Number POWERCHART Rapid Strep A Screen (05/20/2013 5:00 PM CDT) [employer] Method Time Signature HXStrep A POWERCHART Screen Rapid HXFinal Negative for POWERCHART Strep Group A by rapid screen. HXFinal Culture POWERCHART confirmation to follow. Specimen (Source) Anatomical Collection Method Collection Time Re ceived Time Location / / Volume Laterality Throat 05/20/2013 5:00 PM CDT Rox Dykes M.D. LAB MICROBIOLOGY - GENERAL O RDSHANTELL Performing Organization Address [facility] Code Phon e Number POWERCHART documented in this encounter Visit Diagnoses Not on filedocumented in this encounter
--- OUTSIDE RECORDS SUMMARY | 2022-06-20 21:26 | XMS_ITS | Encounter Summary ---
:1985 Author Organization [facility] Address [address] [place] [address] Care Team Providers Name Role Phone Unavailable Primary Care Provider Unavailable Encounter Details Date Type Department Care Team Description 01/03/2013 Hospital Encounter HX [facility] [place] [address] Social History Tobacco Use Types Packs/Day Years [...] Notes Miscellaneous - Rox Dykes M.D. - 01/04/2013 10:29 AM CDT Results Notification Document Contains Addenda Addendum by GOLDIE COX RN on 07 January 2013 16:25:23 CDT Pt notified. Addendum by GOLDIE COX RN on 07 January 2013 16:17:24 CDT LMTCB From: ROX DYKES MD To: GOLDIE COX RN; Sent: 01/04/2013 10:29:36 CDT ! Show up: 01/04/2013 15:29:36 [facility] Subject: Results Notification Actions: Notify patient of results Reminder Comments: Complex left ovarian cyst has resolved, no further f/u needed-MJP Results: Date Result Type Result Name 01/03/2013 10:01 Radiology US Pelvic And Endovaginal Source: [facility] POWERCHART Document Id: [id number] Electronically signed by Conversion, [facility] Ophthalmic Photographer [id number] at 12/20/2016 11:08 PM CDT documented in this encounter Plan of Treatment Not on filedocumented as of this encounter Procedures Procedure Name Priority Date/Time Associated Comments Diagnosis US PELVIS TRANSVAGINAL Routine 01/03/2013 9:03 AM Results for this AND TRANSABDOMINAL CDT procedure are in the results section. documented in this encounter Results US Pelvis Transvaginal and Transabdominal (01/03/2013 9:03 AM CDT) Anatomical Region Laterality Modality Pelvis N/A Ultrasound Specimen (Source) Anatomical Collection Method Collection Time Re ceived Time Location / / Volume Laterality 01/03/2013 9:03 AM CDT Addenda Addendum by Provider, Tena Louie 01/03/2013 9:03 AM CDT RAD^^^MA US Pelvic And Endovaginal 01/03/2013 09:03:00 Impressions 01/03/2013 9:58 AM CDT 1. Resolution of hemorrhagic cyst within the left ovary on previous exam. 2. Simple appearing subcentimeter right paraovarian cyst. 3. Tiny cyst abutting the fundal aspect of the endometrium. Finding of doubtful clinical significance in the absence of . Narrative 01/03/2013 9:58 AM CDT COMPARISON: 12/03/2012, 12/22/2011. FINDINGS: The study was performed using transabdominal and transvaginal sonography. Uterus measures 6.3 x 3.5 cm mid sagitta l dimension. Endometrial thickness 4 mm. Tiny cyst noted involvin g the fundal aspect of the uterus appearing to abut the endometrium as seen on image 28 through 32, doubtful clinical significance in th e absence of . Right ovary measures 3.3 x 2.4 x 2.0 cm, left ovary measures 2.8 x 3.0 x 1.9 cm. Resolution of hemorrhagic cyst within the left ovary on previous exam. ??A 9 x 6 x 6 mm paraovar mohit cyst is noted within the right adnexa, simple features. No free f luid. Procedure Note Tad Andrew M.D. / Provider, His delores M.D. - 05/19/2017 COMPARISON: 12/03/2012, 12/22/2011. FINDINGS: The study was performed using transabdominal and transvaginal sonography. Uterus measures 6.3 x 3.5 cm mid sagitta l dimension. Endometrial thickness 4 mm. Tiny cyst noted involvin g the fundal aspect of the uterus appearing to abut the endometrium as seen on image 28 through 32, doubtful clinical significance in th e absence of . Right ovary measures 3.3 x 2.4 x 2.0 cm, left ovary measures 2.8 x 3.0 x 1.9 cm. Resolution of hemorrhagic cyst within the left ovary on previous exam. A 9 x 6 x 6 mm paraovaria n cyst is noted within the right adnexa, simple features. No free f luid. IMPRESSION: 1. Resolution of hemorrhagic cyst within the left ovary on previous exam. 2. Simple appearing subcentimeter right paraovarian cyst. 3. Tiny cyst abutting the fundal aspect of the endometrium. Finding of doubtful clinical significance in the absence of . Jessica Mendosa R.V.T., R.D.MDaniellaSDaniella IMG US PROCEDURES documented in this encounter Visit Diagnoses Not on filedocumented in this encounter
--- OUTSIDE RECORDS SUMMARY | 2022-06-20 21:26 | XMS_ITS | Encounter Summary ---
:1985 Author Organization [facility] Address [address] [place] [address] Care Team Providers Name Role Phone Unavailable Primary Care Provider Unavailable Encounter Details Date Type Department Care Team Description 12/22/2011 Hospital Encounter HX NO MAPPING [place] [address] Social History Tobacco Use Types Packs/Day Years Used Date Smoking Tobacco: Never Assessed Sex Assigned at Date Recorded Not on file documented as of this encounter Plan of Treatment Not on filedocumented as of this encounter Procedures Procedure Name Priority Date/Time Associated Comments Diagnosis US PELVIS TRANSVAGINAL Routine 12/22/2011 4:57 PM Results for this AND TRANSABDOMINAL CDT procedure are in the results section. documented in this encounter Results US Pelvis Transvaginal and Transabdominal (12/22/2011 4:57 PM CDT) Anatomical Region Laterality Modality Pelvis N/A Ultrasound Specimen (Source) Anatomical Collection Method Collection Time Re ceived Time Location / / Volume Laterality 12/22/2011 4:57 PM CDT Addenda Addendum by Provider, Tena Louie 12/22/2011 4:57 PM CDT RAD^^^MA US Pelvic And Endovaginal 12/22/2011 16:57:00 Impressions 12/22/2011 5:23 PM CDT No abnormality seen. Narrative 12/22/2011 5:23 PM CDT EXAM: US Pelvic And Endovaginal INDICATION: PELVIC PAIN COMPARISON: None. PROCEDURE: Multiple real-time grayscale echograms of the pelvis including endovaginal views were obtaine d. FINDINGS: The uterus is normal in size, position and contour and measures 6.5 x 4.8 x 2.0 cm in size. Lilli rine echotexture is normal. The endometrial stripe measures 3 mm. Th e right ovary measures 2.7 x 1.3 x 1.3 cm. The left ovary measures 2. 5 x 2.1 x 1.1 cm. No ovarian masses or cysts are seen. No adnexal flu id or mass is seen. Procedure Note Amadeo Hancock M.D. / Provider, Tomasa mahmood M.D. - 12/14/2016 EXAM: US Pelvic And Endovaginal INDICATION: PELVIC PAIN COMPARISON: None. PROCEDURE: Multiple real-time grayscale echograms of the pelvis including endovaginal views were obtaine d. FINDINGS: The uterus is normal in size, position and contour and measures 6.5 x 4.8 x 2.0 cm in size. Lilli rine echotexture is normal. The endometrial stripe measures 3 mm. Th e right ovary measures 2.7 x 1.3 x 1.3 cm. The left ovary measures 2. 5 x 2.1 x 1.1 cm. No ovarian masses or cysts are seen. No adnexal flu id or mass is seen. IMPRESSION: No abnormality seen. Historical Provider IMG US PROCEDURES documented in this encounter Visit Diagnoses Not on filedocumented in this encounter
--- OUTSIDE RECORDS SUMMARY | 2022-06-20 21:26 | XMS_ITS | Encounter Summary ---
:[address] [facility] Address [address] [place] [address] Care Team Providers Name Role Phone Unavailable Primary Care Provider Unavailable Encounter Details Date Type Department Care Team Description 04/22/2013 [facility] [place] [address] Social History Tobacco Use Types Packs/Day Years Used Date Smoking Tobacco: Never Assessed Sex Assigned at Date Recorded Not on file documented as of this encounter Medications at Time of Discharge Medication Sig Dispensed Refills Start Date End Date PNV no.95/ferrous fum/folic Take 1 tablet by 0 ac ( MULTIVITAMINS mouth daily. ORAL) documented as of this encounter Miscellaneous Notes Miscellaneous - Haydee Dickens, R.N. - 05/06/2013 11:27 AM CDT General Message--OB vitamins Document Contains Addenda Addendum by HAYDEE DICKENS RN on 06 May 2013 13:45:48 CDT Left message on cell per pt request. Addendum by ROX DYKES MD on 06 May 2013 12:05:56 CDT From: ROX DYKES MD To: HAYDEE DICKENS RN; Sent: 05/06/2013 12:05:56 CDT Subject: RE: General Message--OB vitamins Patient can try to discuss with the pharmacist if they have gummy vitamins which may cause less irritation From: HAYDEE DICKENS RN To: ROX DYKES MD; Sent: 05/06/2013 11:27:28 CDT Subject: General Message--OB vitamins Pt is 17 weeks and c/o acid reflux and states she feels like the vitamin she is taking is the cause. Pt is wondering if a different vitamin could be prescribed. Pt is in class all day but OK to leave a message on her cell [phone]. Source: [facility] POWERCHART Document Id: [id number] Electronically signed by Conversion, [facility] [id number] at 12/21/2016 8:55 PM CDT Miscellaneous - Rox Dykes M.D. - 04/24/2013 11:44 AM CDT Results Notification Document Contains Addenda Addendum by ASHLEY PIZARRO RN on 26 April 2013 15:38:11 CDT Pt notified. Addendum by ASHLEY PIZARRO RN on 26 April 2013 11:41:21 CDT Result charted on record. LMTCB. From: ROX DYKES MD To: ASHLEY PIZARRO RN; Sent: 04/24/2013 11:44:05 CDT ! Show up: 04/24/2013 16:44:05 [facility] Subject: Results Notification Actions: Notify patient of results Reminder Comments: screen negative for NTDs Results: Date Result Name Value 04/22/2013 16:55 Mtrnl Wt - lbs-[place] 191 04/22/2013 16:55 Quad Age @ JENN-[place] 28 years 04/22/2013 16:55 Quad Diabetic?-[place] None 04/22/2013 16:55 Quad Race-[place] non-Black 04/22/2013 16:55 Quad JENN by /[facility] 10/09/13 04/22/2013 16:55 Quad GA Col [facility] 15,5 04/22/2013 16:55 [facility] 04/22/2013 16:55 Quad AFP-[place] See Comment 04/22/2013 16:55 Quad Interp-[place] See Comment 04/22/2013 16:55 Quad Follow Up-Long None. 04/22/2013 16:55 Quad Gnrl Info-[place] See Comment 04/22/2013 16:55 Quad Other Info-[place] Initial testing Source: [facility] POWERCHART Document Id: [id number] Miscellaneous - Ashley Pizarro R.N. - 04/16/2013 3:25 PM CDT OB- 15 weeks acid reflux Document Contains Addenda Addendum by ASHLEY PIZARRO RN on 17 April 2013 15:43:42 CDT Pt notified. Addendum by ASHLEY PIZARRO RN on 17 April 2013 13:26:56 CDT LMTCB Addendum by ROX DYKES MD on 17 April 2013 09:30:50 CDT From: ORX DYKES MD To: ASHLEY PIZARRO RN; Sent: 04/17/2013 09:30:50 CDT Subject: RE: OB- 15 weeks acid reflux order put in Addendum by ASHLEY PIZARRO RN on 17 April 2013 08:35:10 CDT Can you please put the order in for her to see GI? Addendum by ROX DYKES MD on 16 April 2013 18:03:14 CDT From: ROX DYKES MD To: ASHLEY PIZARRO RN; Sent: 04/16/2013 18:03:14 CDT Subject: RE: OB- 15 weeks acid reflux She can take Prilosec 20 mgs 30 mins before food in the morning as needed, however Prilosec is category C, ie should be used only if potential benefits outweigh the small risk of malformation. I would also consider a GI consult to r/o gastric ulcer before starting her on prilosec. From: ASHLEY PIZARRO RN To: ROX DYKES MD; Sent: 04/16/2013 15:25:31 CDT Subject: OB- 15 weeks acid reflux Pt is currently 15 weeks and is having problems with acid reflux. She is on Zofran but it is not helping. She has tried backing off of it, she has tried taking it with meals and she has tried taking it every 8 hours and it is not helping. Pt is wondering what to do now. Please advise. Source: [facility] Concert Window Document Id: [id number] Electronically signed by Liv[employer]ik, [facility] [id number] at 12/21/2016 8:55 PM CDT Miscellaneous - Ashley Pizarro R.N. - 04/16/2013 2:41 PM CDT General Message Document Contains Addenda Addendum by ASHLEY PIZARRO RN on 16 April 2013 15:25:53 CDT see previous message. From: ASHLEY PIZARRO RN To: ASHLEY PIZARRO RN; Sent: 04/16/2013 14:41:54 CDT Subject: General Message Pt left voicemail stating she would like a callback. Called pt but it went to voicemail therefore left a voicemail for pt to callback. Source: [facility] Concert Window Document Id: [id number] Electronically signed by [employer], [facility] [id number] at 12/21/2016 8:55 PM CDT Miscellaneous - Ashley Pizarro, R.N. - 04/08/2013 11:58 AM CDT OB constipation From: ASHLEY PIZARRO RN Sent: 04/08/2013 11:58:39 CDT Subject: OB constipation Late entry-- Pt called on 04/05/13 at 1630. Pt is 13 week and wanted to let us know that themedication Dr. Dykes put her on is making things better (Zofran) they are still not great but isgetting better. Pt states that she is feeling constipated now as well. She has been going all week but just a little bit at a time which is not normal for her since she says that she can usually go once per day. She is wondering what is safe to take for that. Pt advised that she has a couple of options. She can try Citrucel, Colace, Miralax, Lemon in water, Metamucil or Milk or Mag. Pt told she can try one of these things and to follow the directions per label. If this doesn't help she should let usknow. Pt understands and agrees. Source: [facility] POWERCHART Document Id: [id number] Electronically signed by Conversion, [facility] [id number] at 12/21/2016 8:55 PM CDT documented in this encounter Plan of Treatment Not on filedocumented as of this encounter Procedures Procedure Name Priority Date/Time Associated Diagnosis Comme nts AFP SINGLE MARKER Routine 04/22/2013 4:55 PM Resu lts for this SCRN, MATERNAL, S CDT procedure are in the results section. documented in this encounter Results Alpha-Fetoprotein (AFP), Single Marker Screen, Maternal, Serum (04/22/2013 4:55 PM CDT) [facility] gist Method Time Signature Calculated Age 28 years POWERCHART at JENN Weight in Kg 191 POWERCHART Insulin None POWERCHART Dependent Diabetes HXQuad non-Black POWERCHART Race-[place] JENN by U/S 10/09/13 POWERCHART scan GA on 15,5 POWERCHART collection by U/S scan HXQuad GA Rsk Scan POWERCHART Est-[place] estimate AFP Quad See Comment POWERCHART Interp Comment: RESULT: 0.53 MoM ( 15.6 ng/mL ) Interpretation See Comment POWERCHART Comment: RESULT: Screen negative for felipe ral tube defects. HXQuad Follow Up-[place] None. POWERCHA RT HXQuad Gnrl Info-[place] See Comment POWER COSTA Comment: This screening provides an estimation of risk, not a diagnosis. Incorrect or incomplete infor mation may significantly alter results. Results may be unreliable in twin pregna ncies with a demise. Results are not available for pr egnancies with triplets and higher-order multiples. A positive result occurs when the AFP Mo M equals or exceeds 2.5. Screen results and family history influe nce individual risk. If there is a family history of a neural tube defect, chromosome abnormality, or other inherit ed condition, consider the option of a genetic consult ation. For further information, please contact the maternal screening laboratory at . Other Information Initial testing POWERC COSTA Comment: Test Performed by: [place] [address] [employer] Tree Contractor: Rachid herrera III, M.D. Specimen (Source) Anatomical Collection Method Collection Time Re ceived Time Location / / Volume Laterality Blood 04/22/2013 4:55 PM CDT Rox Dykes M.D. LAB BLOOD ADD-ON Performing Organization Address City/State/ZIP Code Phon e Number POWERCHART documented in this encounter Visit Diagnoses Not on filedocumented in this encounter
--- OUTSIDE RECORDS SUMMARY | 2022-06-20 21:26 | XMS_ITS | Encounter Summary ---
:1985 Author Organization [facility] Address [address] [place] [address] Care Team Providers Name Role Phone Unavailable Primary Care Provider Unavailable Encounter Details Date Type Department Care Team Description 05/20/2013 Hospital Encounter HX [facility] [place] [id number] Social History Tobacco Use Types Packs/Day Years [...] Notes Miscellaneous - Rox Dykes M.D. - 05/20/2013 5:05 PM CDT Results Notification Document Contains Addenda Addendum by GOLDIE COX RN on 22 May 2013 15:41:50 CDT Pt notified. From: ROX DYKES MD To: GOLDIE COX RN; Sent: 05/20/2013 17:05:52 CDT ! Show up: 05/20/2013 22:05:52 [facility] Subject: Results Notification Actions: Notify patient of results Reminder Comments: Normal anatomy, placenta low lying, repeat US in 6 weeks for placental location, pelvic rest for [id number] Results: Date Result Type Result Name 05/20/2013 16:51 Radiology US OB Greater than 14 weeks Source: [facility] POWERCHART Document Id: [id number] documented in this encounter Plan of Treatment Not on filedocumented as of this encounter Procedures Procedure Name Priority Date/Time Associated Diagnosis Comme nts US OB GREATER THAN Routine 05/20/2013 3:32 PM Res ults for this 14 WEEKS CDT procedure are i n the results section. documented in this encounter Results US OB Greater than 14 weeks (05/20/2013 3:32 PM CDT) Anatomical Region Laterality Modality Ultrasound Specimen (Source) Anatomical Collection Method Collection Time Re ceived Time Location / / Volume Laterality 05/20/2013 3:32 PM CDT Addenda Addendum by Provider, Tena Louie 05/20/2013 3:32 PM CDT RAD^^^MA US OB Greater than 14 weeks 05/20/2013 15:32:00 Impressions 05/20/2013 4:47 PM CDT 1. Single live intrauterine gestation, w ith a mean gestational age of 20 weeks and 5 days, which corresponds w ell with LMP dates of 19 weeks and 5 days. 2. Normal survey. 3. Followup as clinically indicated. Narrative 05/20/2013 4:47 PM CDT Technique: An OB ultrasound was performe d. ??Correlation made with pelvic sonogram dated 01/03/2013. Findings: Placenta location: Anterior Cervical length: 4.1 cm with placenta to cervix distance of 3.9 cm number: Single live gestation position: Breech heart beat: Regular, 146 beats per minute movement: Present Amniotic fluid: 11.7 cm, 40% Dating and growth parameters: Composite measured gestational age : 20 weeks and 5 days corresponding to estimated due date of . This is concordant when compared with LMP dates of 19 weeks and 5 days providing estimated delivery date of 10/09/2013. Estimated weight: 383 g (14 ounces ) Percentile: 96 Biparietal diameter: 46.8 mm, 20 weeks a nd 2 days, 69% Head circumference: 170.1 mm, 19 weeks a nd 5 days, 38% Abdominal circumference: 154.1 mm, 20 we eks and 5 days, 74% Femur length: 36.5 mm, 21 weeks and 5 da ys, 94% CI: 0.8 (0.7-0.86) Head circumference/abdominal circumferen ce: 1.1 (range 1.09-1.26) The cerebellum, cisterna magna, nuchal f old, lateral ventricles, nose/lips, choroid plexus, kidneys, stom ach, diaphragm, bladder, three-vessel cord, cord insertion site, four-chamber heart, ventricular outflow tracts, spine are un remarkable. Procedure Note Colt Azul M.D. / ProviderRachel M.D. - 12/09/2016 Technique: An OB ultrasound was performe d. Correlation made with pelvic sonogram dated 01/03/2013. Findings: Placenta location: Anterior Cervical length: 4.1 cm with placenta to cervix distance of 3.9 cm number: Single live gestation position: Breech heart beat: Regular, 146 beats per minute movement: Present Amniotic fluid: 11.7 cm, 40% Dating and growth parameters: Composite measured gestational age : 20 weeks and 5 days corresponding to estimated due date of . This is concordant when compared with LMP dates of 19 weeks and 5 days providing estimated delivery date of 10/09/2013. Estimated weight: 383 g (14 ounces ) Percentile: 96 Biparietal diameter: 46.8 mm, 20 weeks a nd 2 days, 69% Head circumference: 170.1 mm, 19 weeks a nd 5 days, 38% Abdominal circumference: 154.1 mm, 20 we eks and 5 days, 74% Femur length: 36.5 mm, 21 weeks and 5 da ys, 94% CI: 0.8 (0.7-0.86) Head circumference/abdominal circumferen ce: 1.1 (range 1.09-1.26) The cerebellum, cisterna magna, nuchal f old, lateral ventricles, nose/lips, choroid plexus, kidneys, stom ach, diaphragm, bladder, three-vessel cord, cord insertion site, four-chamber heart, ventricular outflow tracts, spine are un remarkable. IMPRESSION: 1. Single live intrauterine gestation, w ith a mean gestational age of 20 weeks and 5 days, which corresponds w ell with LMP dates of 19 weeks and 5 days. 2. Normal survey. 3. Followup as clinically indicated. Marry Cobb R.V.T.D.M.S. [facility] OB US PROCEDURES documented in this encounter Visit Diagnoses Not on filedocumented in this encounter
--- OUTSIDE RECORDS SUMMARY | 2022-06-20 21:26 | XMS_ITS | Encounter Summary ---
:1985 Author Organization [facility] Address [address] [place] [address] Care Team Providers Name Role Phone Unavailable Primary Care Provider Unavailable Encounter Details Date Type Department Care Team Description 02/27/2013 Hospital Encounter HX [facility] [place] [address] Social History Tobacco Use Types Packs/Day Years Used Date Smoking Tobacco: Never Assessed Sex Assigned at Date Recorded Not on file documented as of this encounter Medications at Time of Discharge Medication Sig Dispensed Refills Start Date End Date PNV no.95/ferrous fum/folic Take 1 tablet by 0 ac ( MULTIVITAMINS mouth daily. ORAL) documented as of this encounter Progress Notes Karen Dykes M.D. - 02/27/2013 3:54 PM CDT [id number] HISTORY OF PRESENT ILLNESS Patient is a 27-year-old G1, P0, at 8 weeks' here for her first OB visit. She complains of sinus congestion early in the morning which has been going on for the past 1 month. She states that on the , she had a really bad cold which she treated by aixn-pmx-oddgexy medications and it has been gradually getting better. However, she still has some sinus congestion in the morning. No cramping abdominal pain, nausea or vomiting. Last menstrual period was 01/01/2013. EDC 10/09/2013. Periods were regular. OBSTETRIC HISTORY: G1, P0. GYNECOLOGIC HISTORY: Last Pap smear, October 2012, normal. No history of abnormal Pap smears. No history of STDs. PAST MEDICAL/SURGICAL HISTORY MEDICAL: Noncontributory. SURGICAL: History of wisdom teeth extraction. SOCIAL HISTORY Patient is . 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 She quit smoking 10 years ago. Does not drink alcohol. No history of drug use. ALLERGIES No known drug allergies. CURRENT MEDICATIONS vitamins. FAMILY HISTORY Patient's brother and sister have autism. No other significant family history. PHYSICAL EXAMINATION GENERAL: Patient is conscious, comfortable in the supine and sitting positions. LUNGS: Clear to auscultation bilaterally. CARDIOVASCULAR: Regular rate and rhythm. No murmurs, rubs or gallops. HEENT: Normal. No sinus tenderness. No pharyngitis. NECK: No lymphadenopathy noted in the neck. ABDOMEN: Soft, nontender, nondistended. No evidence of organomegaly. Uterus not palpable abdominally. EXTREMITIES: Normal. VAGINAL EXAM: Reveals a thick white discharge. Wet mount reveals yeast hyphae with a RENETTA prep. Cervix was long, thick and closed. Uterus anteverted, 8 weeks. RECTAL EXAM: Deferred. IMPRESSION/REPORT/PLAN A 27-year-old G1, P0, at 8 weeks' here for her first OB visit. 1. Transvaginal ultrasound was done today. A single live intrauterine , 8 weeks' gestation,was seen. EDC by 8 weeks' ultrasound, 10/09/2013, which concurs with EDC by last menstrual period. 2. All labs, urinalysis, urine culture and cervical cultures for gonorrhea and chlamydia were done today. 3. Patient is not sure if she wants genetic testing. She will let us know at the next visit. I informed patient about the sequential genetic screen that we offer. Patient was asked to follow up with ana maria 4 weeks for a followup OB visit. Karen Dykes M.D./zbigniew Electronically Signed By: KAREN DYKES MD On: 03/01/2013 10:54 AM Source: [facility] MHSDOLBEYNONRADSYS Document Id: [id number] documented in this encounter Miscellaneous Notes Miscellaneous - Karen Dykes M.D. - 03/19/2013 11:20 AM CDT Results Notification Document Contains Addenda Addendum by ASHLEY PIZARRO RN on 26 March 2013 08:29:14 CDT result charted on record. From: KAREN DYKES MD To: ASHLEY PIZARRO RN; Sent: 03/19/2013 11:20:17 CDT ! Show up: 03/19/2013 16:20:17 [facility] Subject: Results Notification Actions: Notify patient of results Reminder Comments: Negative Results: Date Result Name Value 02/27/2013 17:05 Inst Hep Bs Ag -1.000 mIU/mL Source: [facility] [employer] Document Id: [id number] Sol - Karen Dykes M.D. - 03/01/2013 2:54 PM CDT Results Notification Document Contains Addenda Addendum by HAYDEE DICKENS RN on 01 March 2013 15:01 CDT charted on record and result letter sent From: KAREN DYKES MD To: ASHLEY PIZARRO RN; Sent: 03/01/2013 14:54:34 CDT ! Show up: 03/01/2013 19:54:34 [facility] Subject: Results Notification Actions: Notify patient of results Reminder Comments: Negative Results: Date Result Name Value Ref Range 02/27/2013 17:05 Syphilis IgG-[place] Negative (Negative - ) 02/27/2013 17:05 HIV 1&2 Ab-[place] Negative (Negative - ) 02/27/2013 17:05 HCV Ab Scn-[place] Negative (Negative - ) Source: [facility] MobileX LabsCHART Document Id: [id number] Karen Daily M.D. - 03/01/2013 1:16 PM CDT Results Notification Document Contains Addenda Addendum by HAYDEE DICKENS RN on 01 March 2013 15:02:38 CDT result letter sent Addendum by HAYDEE DICKENS RN on 01 March 2013 14:37:49 CDT charted on record From: KAREN DYKES MD To: ASHLEY PIZARRO RN; Sent: 03/01/2013 13:16:52 CDT ! Show up: 03/01/2013 18:16:52 [facility] Subject: Results Notification Actions: Notify patient of results Reminder Comments: Negative Results: Date Result Type Ind Result Name MBO Review Chlamydia DNA Probe Source: [facility] [employer] Document Id: [id number] Miscellarvin - Karen Dykes M.D. - 03/01/2013 1:16 PM CDT Results Notification Document Contains Addenda Addendum by HAYDEE DICKENS RN on 01 March 2013 15:02:26 CDT result letter sent Addendum by HAYDEE DICKENS RN on 01 March 2013 14:38:12 CDT charted on record From: KAREN DYKES MD To: ASHLEY PIZARRO RN; Sent: 03/01/2013 13:16:42 CDT ! Show up: 03/01/2013 18:16:42 [facility] Subject: Results Notification Actions: Notify patient of results Reminder Comments: Negative Results: Date Result Type Ind Result Name MBO Review GC DNA Probe Source: [facility] [employer] Document Id: [id number] ClarissecellKaren Gr M.D. - 03/01/2013 11:08 AM CDT Results Notification Document Contains Addenda Addendum by HAYDEE DICKENS RN on 01 March 2013 15:04 CDT charted on record and result letter sent From: KAREN DYKES MD To: BHAVYA WATERS MD; Sent: 03/01/2013 11:08:38 CDT ! Show up: 03/01/2013 16:08:38 [facility] Subject: Results Notification Actions: Notify patient of results Reminder Comments: Normal Results: Date Result Name Ind Value Ref Range 02/27/2013 17:05 ABO/Rh A POS 02/27/2013 17:05 ABSC Gel Negative ABSC 02/27/2013 17:05 ABO/Rh Retype A POS 02/27/2013 17:05 Hgb 13.6 g/dL (12.0 - 15.5) 02/27/2013 17:05 Hct 38.6 % (34.9 - 44.5) 02/27/2013 17:05 WBC 9.7 x10(9)/L (3.4 - 10.5) 02/27/2013 17:05 RBC 4.40 x10(12)/L (3.90 - 5.03) 02/27/2013 17:05 MCV 87.7 fL (82.0 - 98.0) 02/27/2013 17:05 RDW 12.9 % (11.9 - 15.5) 02/27/2013 17:05 Platelet 193 x10(9)/L (150 - 450) 02/27/2013 17:05 Neutro Absolute 6.73 10(9)/L (1.70 - 7.00) 02/27/2013 17:05 Lymph Absolute 1.78 x10(9)/L (0.90 - 2.90) 02/27/2013 17:05 [place] Absolute (H) 1.09 x10(9)/L (0.30 - 0.90) 02/27/2013 17:05 Eos Absolute 0.07 x10(9)/L (0.05 - 0.50) 02/27/2013 17:05 Baso Absolute 0.01 x10(9)/L (0.00 - 0.30) 02/27/2013 17:05 Differential? Auto 02/27/2013 17:05 Rubella Ab Positive 02/27/2013 17:05 Hep Bs Ag Interp Negative (Negative - ) 02/27/2013 17:00 UA Color Yellow (Yellow - ) 02/27/2013 17:00 UA Spec Grav 1.015 (1.000 - 1.030) 02/27/2013 17:00 UA pH 7.0 (5.0 - 9.0) 02/27/2013 17:00 UA Protein Negative (Negative - ) 02/27/2013 17:00 UA Glucose Negative (Negative - ) 02/27/2013 17:00 UA Ketones Negative (Negative - ) 02/27/2013 17:00 UA Bili Negative (Negative - ) 02/27/2013 17:00 UA Urobilinogen 0.2 (0.1 - 2.0) 02/27/2013 17:00 UA Blood Negative (Negative - ) 02/27/2013 17:00 UA Nitrite Negative (Negative - ) 02/27/2013 17:00 UA Leuk Est (*) Trace (Negative - ) 02/27/2013 17:00 UA WBC 1-3 02/27/2013 17:00 UA RBC Negative (0-2 - ) 02/27/2013 17:00 UA Appear Clear (Clear - ) 02/27/2013 17:00 UA Epi (*) 1+ (Negative - ) Source: [facility] POWERCHART Document Id: [id number] Miscellaneous - Karen Dykes M.D. - 03/01/2013 10:56 AM CDT Results Notification Document Contains Addenda Addendum by HAYDEE DICKENS RN on 01 March 2013 15:04 CDT result letter sent Addendum by HAYDEE DICKENS RN on 01 March 2013 14:36:06 CDT charted on record From: KAREN DYKES MD To: ASHLEY PIZARRO RN; Sent: 03/01/2013 10:56:23 CDT ! Show up: 03/01/2013 15:56:23 [facility] Subject: Results Notification Actions: Notify patient of results Reminder Comments: Normal Results: Date Result Type Ind Result Name MBO Review Culture Urine Source: [facility] [employer] Document Id: [id number] Miscellaneous - Ashley Pizarro R.N. - 02/13/2013 2:56 PM CDT Loratadine use in Document Contains Addenda Addendum by KAREN DYKES MD on 13 February 2013 14:58:44 CDT From: KAREN DYKES MD To: ASHLEY PIZARRO RN; Sent: 02/13/2013 14:58:44 CDT Subject: RE: Loratadine use in Agree with plan-MJP From: ASHLEY PIZARRO RN To: KAREN DYKES MD; Sent: 02/13/2013 14:56:15 CDT Subject: Loratadine use in Pt is about 6 weeks and is feeling very tired but also is dealing with allergies. Pt was put on generic Claritin a week or 2 ago for it. She has not been taking it everyday since she is worried about taking anything at this time. Pt states it is like having a bad cold all the time but does feel better on the days that she does take it. Pt reassured that generic Claritin (Loratadine) is safe to use in . Pt told she can try using this on a daily basis if needed and see how she feels.If symptoms persist or worsen she should let us know. Pt understands and agrees. [facility] Document Id: [id number] documented in this encounter Plan of Treatment Not on filedocumented as of this encounter Procedures Procedure Name Priority Date/Time Associated Comments Diagnosis ABSC GEL Routine 02/27/2013 5:05 PM Results f or this CDT procedure are i n the results section. ABORH, RBC Routine 02/27/2013 5:05 PM Results f or this CDT procedure are i n the results section. ABO/RH RETYPE Routine 02/27/2013 5:05 PM Results for this CDT procedure are i n the results section. HXZZORDERS Routine 02/27/2013 5:05 PM Results f or this CDT procedure are i n the results section. SYPHILIS TOTAL AB W/ Routine 02/27/2013 5:05 PM R esults for this REFLEX S CDT procedure are i n the results section. AUTOMATED Routine 02/27/2013 5:05 PM Results f or this DIFFERENTIAL, B CDT procedure ar e in the results section. HCV AB W/REFLEX TO Routine 02/27/2013 5:05 PM Res ults for this HCV PCR, S CDT procedure are i n the results section. RUBELLA ANTIBODIES, Routine 02/27/2013 5:05 PM Re sults for this IGG CDT procedure are i n the results section. HEPATITIS B SURFACE Routine 02/27/2013 5:05 PM Re sults for this ANTIGEN CDT procedure are i n the results section. CBC WITH Routine 02/27/2013 5:05 PM Results f or this DIFFERENTIAL, B CDT procedure ar e in the results section. URINALYSIS, ROUTINE Routine 02/27/2013 5:00 PM Re sults for this CDT procedure are i n the results section. URINE MICROSCOPIC Routine 02/27/2013 5:00 PM Resu lts for this CDT procedure are i n the results section. CHLAMYDIA/GONORRHOEAE Routine 02/27/2013 5:00 PM Results for this AMPLIFIED RNA CDT procedure are in the results section. CHLAMYDIA TRACHOMATIS Routine 02/27/2013 5:00 PM Results for this AMPLIFIED RNA CDT procedure are in the results section. BACTERIAL CULTURE, Routine 02/27/2013 5:00 PM Res ults for this AEROBIC, URINE CDT procedure are in the results section. documented in this encounter Results ABSC GEL (02/27/2013 5:05 PM CDT) [facility] Method Time Signature HX ABSC Gel Negative ABSC POWERCHART Specimen (Source) Anatomical Collection Method Collection Time Re ceived Time Location / / Volume Laterality 02/27/2013 5:05 PM CDT Karen Dykes M.D. LAB HISTORICAL ORDERS Performing Organization Address City/State/ZIP Code Phon e Number POWERCHART ABO/Rh (02/27/2013 5:05 PM CDT) P athologist Signature ABORh Interp A POS POWERCHART Specimen (Source) Anatomical Collection Method Collection Time Re ceived Time Location / / Volume Laterality 02/27/2013 5:05 PM CDT Karen Dykes M.D. LAB BLOOD BANK TEST ORDERABL ES Performing Organization Address [facility] [place] [facility] Phon e Number POWERCHART ABO/RH RETYPE (02/27/2013 5:05 PM CDT) P athologist Signature HX ABO/Rh A POS POWERCHART Retype Specimen (Source) Anatomical Collection Method Collection Time Re ceived Time Location / / Volume Laterality 02/27/2013 5:05 PM CDT Karen Dykes M.D. LAB BLOOD BANK TEST ORDERABL ES Performing Organization Address [facility] [place] [facility] Phon e Number POWERCHART (ABNORMAL) Automated Differential (02/27/2013 5:05 PM CDT) [facility] gist Method Time Signature Absolute 6.73 1.70 - POWERCHART Neutrophils 7.00 109L Lymphocytes 1.78 0.90 - POWERCHART 2.90 X109L Monocytes 1.09 (H) 0.30 - POWERCHART 0.90 X109L Eosinophils 0.07 0.05 - POWERCHART 0.50 X109L Absolute 0.01 0.00 - POWERCHART Basophil 0.30 X109L Specimen Anatomical Collection Method Collection Time Receive d Time (Source) Location / / Volume Laterality Blood 02/27/2013 5:05 PM 3 5:05 CDT PM CDT Karen Dykes M.D. LAB BLOOD ADD-ON Performing Organization Address City/[facility] [place] [facility] Phon e Number POWERCHART CBC with Differential (02/27/2013 5:05 PM CDT) P athologist Signature Leukocytes 9.7 3.4 - 10.5 POWERCHART X109L Erythrocytes 4.40 3.90 - POWERCHART 5.03 [id number] Hemoglobin 13.6 12.0 - POWERCHART 15.5 GDL Hematocrit 38.6 34.9 - POWERCHART 44.5 MCV 87.7 82.0 - POWERCHART 98.0 FL HX RDW 12.9 11.9 - POWERCHART 15.5 Platelet Count 193 150 - 450 POWERCHART X109L HXDifferential? Auto POWERCHART Specimen (Source) Anatomical Collection Method Collection Time Re ceived Time Location / / Volume Laterality Blood 02/27/2013 5:05 PM CDT Karen Dykes M.D. LAB BLOOD ADD-ON Performing Organization Address City/State/ZIP Code Phon e Number POWERCHART Syphilis IgG Antibody with Reflex (02/27/2013 5:05 PM CDT) athologist Signature Syphilis IgG Negative Negative POWERCHART Ab, S Comment: No serologic evidence of exposure to syp hilis. Test Performed by: [place] [address] Parking Officer: Rachid herrera III, M.D. Specimen (Source) Anatomical Collection Method Collection Time Re ceived Time Location / / Volume Laterality Blood 02/27/2013 5:05 PM CDT Karen Dykes M.D. LAB BLOOD ADD-ON Performing Organization Address City/[facility] Code Phon e Number POWERCHART Rubella Antibodies, IgG (02/27/2013 5:05 PM CDT) athologist Signature HX Rubella Ab Positive POWERCHART Comment: Positive: ??Indicates immunity to Rubell a Negative: ??Indicates non-immunity to Ru jean-paul This result was obtained with the [employer] Rubella IgG assay. Results from assays of other manufacturers cannot be used interchangeably Specimen (Source) Anatomical Collection Method Collection Time Re ceived Time Location / / Volume Laterality Blood 02/27/2013 5:05 PM CDT Karen Dykes M.D. LAB MICROBIOLOGY - BLOOD ORD ERABLES Performing Organization Address City/State/ZIP Code Phon e Number POWERCHART HXZZORDERS (02/27/2013 5:05 PM CDT) athologist Signature HIV-1/-2 Negative Negative POWERCHART Antibody Comment: Negative result does not rule out HIV in fection. If acute HIV-1 infection is suspected in a high-r isk patient, submit plasma specimen for HIV-1 RNA quantifica tion test. If this test is ordered as a follow-up t est to a reactive rapid HIV antibody test result, suppleme ntal testing by Western blot is recommended, even when t his test result is negative. Testing is performed using the [employer] ros Anti-HIV 1+2 chemiluminescence immunoassay. Test Performed by: [facility] [address] [place] [address] Parking Officer: Rachid herrera III, M.D. Specimen (Source) Anatomical Collection Method Collection Time Re ceived Time Location / / Volume Laterality Blood 02/27/2013 5:05 PM CDT Karen Dykes M.D. LAB HISTORICAL ORDERS Performing Organization Address [facility]/ZIP Code Phon e Number POWERCHART HCV Ab w/Reflex to HCV PCR, S (02/27/2013 5:05 PM CDT) P athologist Signature HXHCV Ab Negative Negative POWERCHART [facility] Comment: Tthaqi-yx-veavve ratio is <1.00. Test Performed by: [facility] [address] [place] [address] Parking Officer: Rachid herrera III, M.D. Specimen (Source) Anatomical Collection Method Collection Time Re ceived Time Location / / Volume Laterality Blood 02/27/2013 5:05 PM CDT Karen Dykes M.D. LAB MICROBIOLOGY - BLOOD ORD ERABLES Performing Organization Address City/[facility]/ZIP Code Phon e Number POWERCHART Hepatitis B Surface Antigen (02/27/2013 5:05 PM CDT) Analysis Performed At Patho logist Time Signature Interpretation Negative Negative POWERCHART Comment: Reactive specimens are sent to [facility] for confirmatory testing with the Hepatitis Bc Antibody Total-Long 834 7 assay. Confirmatory test is necessary to indicate true positive HBsAg status. Specimen (Source) Anatomical Collection Method Collection Time Re ceived Time Location / / Volume Laterality Blood 02/27/2013 5:05 PM CDT Karen Dykes M.D. LAB MICROBIOLOGY - BLOOD ORD ERABLES Performing Organization Address City/[facility]/ZIP Code Phon e Number POWERCHART (ABNORMAL) Urine Microscopic (02/27/2013 5:00 PM CDT) Analysis Performed At [facility] logist Time Signature HXUr WBC 1-3 POWERCHART Red Blood Cell Negative 0 - 2 POWERCHART Clump, Urine HXUr Epithelial 1+ (A) Negative POWERCHART Specimen Anatomical Collection Method Collection Time Receive d Time (Source) Location / / Volume Laterality Urine 02/27/2013 5:00 PM 3 5:00 CDT PM CDT Karen Dykes M.D. LAB URINE ORDERABLES Performing Organization Address City/[facility] [place] [facility] Phon e Number POWERCHART (ABNORMAL) Urinalysis, Routine (02/27/2013 5:00 PM CDT) [facility] Method Time Signature Source Clean Void POWERCHART Urine HXUr Color Yellow Yellow POWERCHART Appearance Clear Clear POWERCHART Glucose Negative Negative POWERCHART HXBILIRUBIN Negative Negative POWERCHART Ketones, QL(U) Negative Negative POWERCHART Specific 1.015 1.000 - POWERCHART [place], POCT, U 1.030 HXBLOOD Negative Negative POWERCHART pH, POCT, Urine 7.0 5.0 - 9.0 POWERCHART Protein, Ur, Dip Negative Negative POWERCHART Urobilinogen 0.2 0.1 - 2.0 POWERCHART HXNITRITE Negative Negative POWERCHART Leukocyte Trace (A) Negative POWERCHART Esterase Specimen (Source) Anatomical Collection Method Collection Time Re ceived Time Location / / Volume Laterality Urine 02/27/2013 5:00 PM CDT Karen Dykes M.D. LAB URINE ORDERABLES Performing Organization Address City/[facility] Code Phon e Number POWERCHART Chlamydia / Gonorrhoeae Amplified RNA (02/27/2013 5:00 PM CDT) Component Value Ref Test Analysis Performed At [facility] Range Method Time Signature HX GC by Nucleic POWERCHART Acid Amplification HXFinal Negative for POWERCHART Neisseria gonorrhea by DNA amplification . HXFinal Reference: POWERCHART Negative Specimen (Source) Anatomical Collection Method Collection Time Re ceived Time Location / / Volume Laterality Cervix/Endocervix 02/27/2013 5:00 PM CDT Karen Dykes M.D. LAB MICROBIOLOGY - GENERAL O RDERABLES Performing Organization Address City/State/ZIP Code Phon e Number POWERCHART Bacterial Culture, Aerobic, Urine (02/27/2013 5:00 PM CDT) [facility] [place] Method Time Signature Bacterial POWERCHART Culture, Aerobic, Urine HXPre Mixed marko POWERCHART (multiple species present) HXPre [facility] Microbiology laboratory [phone] HXFinal Mixed marko. No POWERCHART further studies unless notified. HXFinal [place] POWERCHART Microbiology laboratory [phone] Specimen (Source) Anatomical Collection Method Collection Time Re ceived Time Location / / Volume Laterality Urine, First 02/27/2013 5:00 PM Voided CDT Karen Dykes M.D. LAB MICROBIOLOGY - GENERAL O JEWEL Performing Organization Address City/[facility] Code Phon e Number POWERCHART Chlamydia Trachomatis Amplified RNA (02/27/2013 5:00 PM CDT) Component Value Ref Test Analysis Performed At [facility] [place] Method Time Signature HXChlamydia by POWERCHART Nucleic Acid Amplification HXFinal Negative for POWERCHART Chlamydia trachomatis by DNA amplification. HXFinal Reference: POWERCHART Negative Specimen (Source) Anatomical Collection Method Collection Time Re ceived Time Location / / Volume Laterality Cervix/Endocervix 02/27/2013 5:00 PM CDT Karen Dykes M.D. LAB MICROBIOLOGY - GENERAL O JEWEL Performing Organization Address City/State/[facility] Code Phon e Number POWERCHART documented in this encounter Visit Diagnoses Not on filedocumented in this encounter
--- OUTSIDE RECORDS SUMMARY | 2022-06-20 21:26 | XMS_ITS | Encounter Summary ---
:1985 Author Organization [facility] Address [address] [place] [address] Care Team Providers Name Role Phone Unavailable Primary Care Provider Unavailable Encounter Details Date Type Department Care Team Description 04/01/2013 [facility] En[facility] [place] [address] Social History Tobacco Use Types Packs/Day Years [...]
--- OUTSIDE RECORDS SUMMARY | 2022-06-20 21:26 | XMS_ITS | Encounter Summary ---
:1985 Author Organization [facility] Address [address] [place] [address] Care Team Providers Name Role Phone Unavailable Primary Care Provider Unavailable Encounter Details Date Type Department Care Team Description 05/12/2013 Hospital Encounter HX [facility] Vlad Hallman M.D. Social History Tobacco Use Types Packs/Day Years Used Date Smoking Tobacco: Never Assessed Sex Assigned at Date Recorded Not on file documented as of this encounter Medications at Time of Discharge Medication Sig Dispensed Refills Start Date End Date PNV no.95/ferrous fum/folic Take 1 tablet by 0 ac ( MULTIVITAMINS mouth daily. ORAL) documented as of this encounter Nursing Notes Rayne Corral RJoanna. - 05/12/2013 5:41 PM CDT Progress note Patient at 19 5/7 weeks gestation arrived on L&D to be monitored after complaining of abdominal cramping after having intercourse with her last night. Patient's heart tones werepositive in the 130's, VSS, SVE done and showed a closed cervix. Patient was reassured and sent homewith instructions to take Tylenol 650 mg or Ibuprofen 600mg if needed for pain relief. Will follow-up with Dr. Dykes next week for 20 week ultrasound. Rayne Corral RN Electronically Signed By: RAYNE CORRAL RN On: 01/20/2016 09:11 PM Source: [facility] POWERCHART Document Id: [id number] documented in this encounter Plan of Treatment Not on filedocumented as of this encounter Visit Diagnoses Not on filedocumented in this encounter
--- OUTSIDE RECORDS SUMMARY | 2022-06-20 21:26 | XMS_ITS | Encounter Summary ---
:1985 Author Organization [facility] Address [address] [place] [address] Care Team Providers Name Role Phone Unavailable Primary Care Provider Unavailable Encounter Details Date Type Department Care Team Description 11/05/2012 Hospital Encounter HX [facility] [place] [address] Social History Tobacco Use Types Packs/Day Years Used Date Smoking Tobacco: Never Assessed Sex Assigned at Date Recorded Not on file documented as of this encounter Last Filed Vital Signs Vital Sign Reading Time Taken Comments Blood Pressure 136/81 11/05/2012 3:38 PM CDT Pulse 78 11/05/2012 3:38 PM CDT Temperature - - Respiratory Rate - - Oxygen Saturation - - Inhaled Oxygen Concentration - - Weight 80.5 kg (177 lb 7.5 oz) 11/05/2012 3:38 PM CDT Height 173 cm (5' 8.11) 11/05/2012 3:38 PM CDT Body Mass Index 26.9 11/05/2012 3:38 PM CDT documented in this encounter Medications at Time of Discharge Medication Sig Dispensed Refills Start Date End Date PNV no.95/ferrous fum/folic Take 1 tablet by 0 ac ( MULTIVITAMINS mouth daily. ORAL) documented as of this encounter Progress Notes Rox Dykes M.D. - 11/05/2012 3:27 PM CDT [id number] HISTORY OF PRESENT ILLNESS The patient is a 27-year-old G0, P0, here for her annual physical exam and preconception counseling. ALLERGIES No known drug allergies. GYNECOLOGIC: Menarche at age 11. Last menstrual period October 11, 2012; flow light; duration 2-3 days; interval 28 days on NuvaRing. The patient has been on control since she was 16 years of age. Last Pap smear November 01, 2011, normal. No history of abnormal Pap smears. No history of STDs. OBSTETRIC: G0, P0. PAST MEDICAL/SURGICAL HISTORY MEDICAL: Noncontributory. SURGICAL: Noncontributory. SOCIAL HISTORY The patient is . Works with [employer] Number of sexual partners: One. She drinks alcohol socially. No history of drug use or smoking. FAMILY HISTORY Mother is alive, age 54. Father is alive, age 54 years. Hypertension in father. No cancer history inthe family. SYSTEMS REVIEW Noncontributory. VITAL SIGNS Heart rate 78 per minute, blood pressure 136/81, height 173 cm, weight 80.5 kg. PHYSICAL EXAMINATION GENERAL: The patient is conscious, comfortable and sitting in supine position. HEENT: No thyromegaly. BREASTS: Normal bilaterally. LUNGS: Clear to auscultation bilaterally. CARDIOVASCULAR: Regular rate and rhythm. No murmurs, rubs or gallops. ABDOMEN: Soft; nontender; nondistended. No evidence of organomegaly. SPECULUM: Cervix normal. Pap smear was not done today as the patient has had all normal Pap smears and she had a normal Pap smear in 2011. PELVIC: Uterus anteverted, normal size. No adnexal mass or tenderness. No cervical motion tenderness. IMPRESSION/REPORT/PLAN A 27-year-old G0, P0, here for an annual physical exam and preconception counseling. 1. Annual physical exam. Clinical breast exam was done today which was normal. The patient was counseled to do self-breast exam on a monthly basis. The patient does not need any blood tests today. Pap smear was done in 2011. She needs her next Pap smear in October 2014. 2. Preconception counseling. The patient requested a refill for NuvaRing for the next 6 months. She was asked to discontinue the NuvaRing when she decides to try to get . She was asked to time intercourse every other day and to certainly have intercourse mid cycle around the time of ovulation,to lie down in a head low position with a pillow under her bottom for an hour after intercourse to maximize sperm contact with the cervix and to take a home urine test if she misses a period.She was asked to begin vitamins. Prescription for vitamins was called into [facility] in [place]. She was asked to not consume alcohol; to not do hot tubs during the time that she is trying to get . The patient was given a basal body temperature chart to monitor when she ovulates. Rox Dykes M.D./pos Electronically Signed By: ROX DYKES MD On: 11/09/2012 04:27 PM Source: [facility] [email or web address] Document Id: [id number] documented in this encounter Miscellaneous Notes Miscellaneous - Ashley Pizarro R.N. - 11/29/2012 10:00 AM CDT right pelvic pain Document Contains Addenda Addendum by ASHLEY PIZARRO RN on 30 Nov 2012 15:19:40 CDT Pt reports her test was negative yesterday. Addendum by ROX DYKES MD on 29 Nov 2012 11:22:03 CDT From: ROX DYKES MD To: ASHLEY PIZARRO RN; Sent: 11/29/2012 11:22:03 CDT Subject: RE: right pelvic pain OK From: ASHLEY PIZARRO RN To: ROX DYKES MD; Sent: 11/29/2012 10:00:33 CDT Subject: right pelvic pain Pt stopped using the Nuvaring on 10/11/12 since her and her would like to try and conceive. Pt last period was then 09/2012. Pt states yesterday morning she started having right sided ovarian pain to the point it hurt to walk. Last night she states her pain was so significant that she was tempted to come into the ER and rated her pain at a 8 or 9. Pt took a test on 11/17/12 and it was negative. Pt states her pain is better today and states it is more of an annoyance is rates it at a 3. Pt told she may have had a cyst that could have ruptured. However pt told she should take another test today and call us back after she does that and let us know what that result is. Pt understands and agrees. She also has set up an appointment for tomorrow just in case symptoms worsen. Pt will contact us later today with results of test. 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 Pt would also like to discuss getting LMP Date : 10/11/12 Ambulatory Intake Additional Information : last pap = 11/01/11 negative Peripheral Pulse Rate : 78 /min Systolic Blood Pressure : 136 mmHg Diastolic Blood Pressure : 81 mmHg NIBP Mean : 99 mmHg BP Location : Left upper extremity Blood Pressure Cuff Size : Regular Height : 173 cm(Converted to: 5 ft 8 inch(es), 68.11 inch(es)) Actual Weight : 80.5 kg(Converted to: 177 lb 8 oz) Dosing Weight Clinic : 80.5 kg Clinic BSA : 1.97 Body Mass Index : 26.9 kg/m2 ASHLEY PIZARRO RN - 11/05/2012 15:38 CDT General Info Information Given By : Patient Languages : Maltese ASHLEY PIZARRO RN - 11/05/2012 15:38 CDT Subjective Pain Symptoms : Yes ASHLEY PIZARRO RN - 11/05/2012 15:38 CDT Pain Pain Assessment Grid Pain 1 Location : Foot Laterality : Left Intensity : 1 ASHLEY PIZARRO RN - 11/05/2012 15:38 CDT Dependent Habits Tobacco Use/Currently Using : No Smoking Status : Former smoker ASHLEY PIZARRO RN - 11/05/2012 15:38 CDT Source: [facility] [employer] Document Id: [id number] CDT!30 documented in this encounter Plan of Treatment Not on filedocumented as of this encounter Visit Diagnoses Not on filedocumented in this encounter
--- OUTSIDE RECORDS SUMMARY | 2022-06-20 21:26 | XMS_ITS | Encounter Summary ---
:1985 Author Organization [facility] Address [address] [place] [address] Care Team Providers Name Role Phone Unavailable Primary Care Provider Unavailable Encounter Details Date Type Department Care Team Description 10/27/[address] [facility] ED Lily Turcios M.D. Social History Tobacco Use Types Packs/Day Years Used Date Smoking Tobacco: Never Assessed Sex Assigned at Date Recorded Not on file documented as of this encounter Last Filed Vital Signs Vital Sign Reading Time Taken Comments Blood Pressure 147/97 10/27/2012 7:53 PM CDT Pulse 83 10/27/2012 7:53 PM CDT Temperature - - Respiratory Rate - - Oxygen Saturation - - Inhaled Oxygen Concentration - - Weight - - Height 175 cm (5' 8.9) 10/27/2012 7:53 PM CDT Body Mass Index - - documented in this encounter Discharge Summaries Naeem Beckett R.N. - 10/27/2012 8:55 PM CDT ED Discharge Instructions [facility] Emergency Department Clinical Discharge Summary PERSON INFORMATION Name NEDA STRINGER Age 27 Years 1985 12:00 AM Sex Female Language Malian PCP KAREN BUCHANAN MD Marital Status Visit Id Visit Reason Foot pain-swelling; LEFT FOOT PAIN Specialty Enc Type Emergency Med Service Emergency Medicine Referred by Naima GILL ED Discharge 10/27/2012 8:45 PM Tracking Id [id number] Checkout 10/27/2012 8:45 PM Checkin 10/27/2012 7:48 PM Acuity 4 -Less Urgent Dispo Type * Discharged to Home or Self Care Arrival 10/27/2012 7:48 PM Reg Status LOS 000 00:57 Address: [address] [place] [phone] Comment: PROVIDER INFORMATION Provider Role Provider Contact Time NAEEM BECKETT RECYCLING ASSISTANT Nurse 10/27/12 19:57 LILY TURCIOS MD ED Provider 10/27/12 20:04 DIAGNOSIS Contusion of the foot 924.20 Comment: PATIENT EDUCATION INFORMATION Instructions: NAPROSYN Follow up: With: Address: When: KAREN CHANEL [address] [place] [phone] Business (1) WithinAs Needed Comments: Source: [facility] Stockr Document Id: [id number] Naeem Beckett R.N. - 10/27/2012 8:55 PM CDT ED Depart Summary [address] [address] Name: NEDA STRINGER Date of : 1985 12:00 AM Visit Date: 10/27/2012 7:48 PM [facility] Number: [id number] Address: [address] [place] [phone] Primary Care Provider: KAREN BUCHANAN MD IMPORTANT: [facility] would like to thank you for allowing us to assistyou with your healthcare needs. The following includes patient education materials and information regarding your injury/illness. Chief Complaint: Foot pain-swelling; LEFT FOOT PAIN Follow-Up Instructions: With: Address: When: KAREN CHANEL [address] [place] [phone] Business (5) WithinAs Needed Comments: Patient Education Materials: [id number] MEDICATION: NAPROXEN Naproxen (brand names: Naprosyn, Anaprox, Aleve, Naprelan) is an anti- inflammatory drug which is very useful for pain and inflammatory conditions. DIRECTIONS FOR USE: You may take this medicine with food to reduce stomach upset. WHAT TO WATCH FOR: POSSIBLE SIDE EFFECTS: Nausea, upper abdominal pain, drowsiness, dizziness, ringing in the ear --> (Contact your doctor if these symptoms persist or become severe). Bleeding from the stomach, which may appear as blood in vomit or stool (red or black color); rapid weight gain, leg swelling or easy bruising --> (Contact your doctor or return to this facility promptly). ALLERGIC REACTION: Rash, itching, swelling, trouble breathing or swallowing --> (Contact your doctor or return to this facility promptly). ------ IMPORTANT ------ MEDICAL CONDITIONS: Before starting this medicine, be sure your doctor knows if you have any of the following conditions: -- Stomach ulcer (active or in the past), history of vomiting blood or bloody stools -- Allergic reaction to aspirin or other anti-inflammatory medicines -- Asthma, nasal polyps or angioedema; or breast feeding -- Liver or kidney disease; bleeding disorder DRUG INTERACTION: Before starting this medicine, be sure your doctor knows if you are taking any of the following drugs: -- Coumadin (warfarin), diuretics (water pills), blood pressure pills, YANA- inhibitors (Lotensin, Capoten, Vasotec, Zestril and others), diabetes pills, prednisone, aspirin or other anti-inflammatory drugs, methotrexate, probenecid WARNINGS: -- Do not take with prednisone, other anti-inflammatory drugs or ALCOHOL since this increases the risk of getting a bleeding ulcer. -- DO NOT DRIVE, ride a bicycle or operate dangerous equipment while taking this medicine until you know how it will affect you. [NOTE: This information topic may not include all directions, precautions, medical conditions, drug/food interactions and warnings for this drug. Check with your doctor, nurse or pharmacist for any questions that you may have.] ?? [id number] [employer], [address] [place] [address], [place] [address]. All rights reserved. This information is not intended as a substitute for professional medical care. Always follow your healthcare professional's instructions. ED Tests and Procedures: Order Status XR Foot Left 2 views Canceled XR Foot Left 3 or more views Completed Discharge Prescriptions & Home Medications: Medication/Strength Dose Route Frequency Indications/Special Instructions/Comments etonogestrel-ethinyl estradiol (NuvaRing 0.120 mg-0.015 mg vaginal ring) 1 each Vaginal every 4 weeks Attention: If you have any medications at home not on this list, DO NOT take them until you contact your provider for clarification. Medication Reconciliation: Reconciliation is a process of identifying the most accurate list of all medications a patient is taking - including name, dosage, frequency, and route - and using this list to provide to the patient information about how to take those medications. NEDA STRINGER or keshav has reviewed the home medications you have listed with us. Review the following instructions: You have NOT received any prescriptions and you have told us you are not currently taking any home medications You have NOT received any prescriptions. You have been provided a discharge medications list and you may CONTINUE taking your medications as previously prescribed by your regular providers. You have received the listed prescriptions and BEGIN all listed prescriptions as directed. Since you have listed no home medications, please check with your family doctor if you are taking any other medications. You have received the listed prescriptions and BEGIN all listed prescriptions as directed. Youhave been provided a discharge medications list and you may CONTINUE all home medications as previously prescribed by your regular providers. You have received the listed prescriptions and BEGIN all listed prescriptions as directed. Youhave been provided a discharge medications list. The following CHANGES have been made to your medication list; Otherwise, CONTINUE all home medications as previously prescribed by your regular provider. IMPORTANT: We examined and treated you today on an emergency basis only. This was not a substitute for, or an effort to provide, complete medical care. In most cases, you must let your doctor check youagain. Tell your doctor about any new or lasting problems. We cannot recognize and treat all injuries or illnesses in one Emergency Department visit. If you had special tests, such as EKG's or X- rays, we will review them again within 24 hours. We will call you if there are any new suggestions. Please follow the instructions above carefully. If you are being transferred to another facility, your follow up plan of care will be determined by the receiving facility. If you are a patient that is being discharged from the Emergency Department after receiving narcotics or other medications that may impair your judgment you may be a risk to yourself or others if you operate a motor vehicle. We recommend that you arrange a ride home with a responsible green party. I, NEDA STRINGER , or responsible green party have received this information and my questions havebeen answered. I have discussed any challenges I see with this plan with the nurse or physician. Patient Signature or Responsible Green Party/Relationship Date Time Provider Signature Date Time Medication Reconciliation: Reconciliation is a process of identifying the most accurate list of all medications a patient is taking - including name, dosage, frequency, and route - and using this list to provide to the patient information about how to take those medications. NEDA STRINGER or designee has reviewed the home medications you have listed with us. Review the following instructions: You have NOT received any prescriptions and you have told us you are not currently taking any home medications You have NOT received any prescriptions. You have been provided a discharge medications list and you may CONTINUE taking your medications as previously prescribed by your regular providers. You have received the listed prescriptions and BEGIN all listed prescriptions as directed. Since you have listed no home medications, please check with your family doctor if you are taking any other medications. You have received the listed prescriptions and BEGIN all listed prescriptions as directed. Youhave been provided a discharge medications list and you may CONTINUE all home medications as previously prescribed by your regular providers. You have received the listed prescriptions and BEGIN all listed prescriptions as directed. Youhave been provided a discharge medications list. The following CHANGES have been made to your medication list; Otherwise, CONTINUE all home medications as previously prescribed by your regular provider. IMPORTANT: We examined and treated you today on an emergency basis only. This was not a substitute for, or an effort to provide, complete medical care. In most cases, you must let your doctor check youagain. Tell your doctor about any new or lasting problems. We cannot recognize and treat all injuries or illnesses in one Emergency Department visit. If you had special tests, such as EKG's or X- rays, we will review them again within 24 hours. We will call you if there are any new suggestions. Please follow the instructions above carefully. If you are being transferred to another facility, your follow up plan of care will be determined by the receiving facility. If you are a patient that is being discharged from the Emergency Department after receiving narcotics or other medications that may impair your judgment you may be a risk to yourself or others if you operate a motor vehicle. We recommend that you arrange a ride home with a responsible green party. I, NEDA STRINGER , or responsible green party have received this information and my questions havebeen answered. I have discussed any challenges I see with this plan with the nurse or physician. Patient Signature or Responsible Green Party/Relationship Date Time Provider Signature Date Time Source: [facility] [email or web address] Document Id: [id number] documented in this encounter Nursing Notes Naeem Beckett RDaniellaN. - 10/27/2012 7:53 PM CDT ED Primary Assessment ED Primary Assessment Entered On: 10/27/2012 19:56 CDT Performed On: 10/27/2012 19:53 CDT by NAEEM BECKETT RN Reason For Visit Diagnoses(Active) Foot pain-swelling Date: 10/27/2012 ; Diagnosis Type: Reason For Visit ; Confirmation: Complaint of ; Clinical Dx: Foot pain-swelling ; Classification: Medical ; Clinical Service: Emergency medicine ; Code: PNED ; Probability: 0 ; Diagnosis Code: [id number] Triage Chief Complaint Description : Pt presents for eval of left foot pain. Pt states that the pain started on . No injury. Information Given By : Patient Accompanied By : Grandparent Mode of Arrival ED : Private vehicle Track : Medical Languages : Malian Vital Signs Assessed : Yes NAEEM BECKETT RN - 10/27/2012 19:53 CDT Vital Signs Temperature Core : 37DegC(Converted to: 98.6DegF) Peripheral Pulse Rate : 83/min Systolic Blood Pressure : 147mmHg (HI) Diastolic Blood Pressure : 97mmHg (>HHI) NIBP Mean : 114mmHg SpO2 : 100% Oxygen Saturation Monitoring Frequency : Continuous Oxygen Therapy : Room air Height : 175cm(Converted to: 5ft 9inch(es)) Dosing Weight : 80kg Dosing Weight Conversion to Pounds : 176.000lb Estimated Weight : 80kg Estimated Weight Conversion to Pounds : 176.00lb NAEEM BECKETT RN - 10/27/2012 19:53 CDT Pain Assessment Pain Symptoms : Yes NAEEM BECKETT RN - 10/27/2012 19:53 CDT Pain Pain Assessment Grid Pain 1 Location : Lower leg Laterality : Left Intensity : 4 NAEEM BECKETT RN - 10/27/2012 19:53 CDT JONEL JONEL Level 1 : No JONEL Level 2 : No JONEL Level 3 : One NAEEM BECKETT RN - 10/27/2012 19:53 CDT DCP GENERIC CODE Tracking Acuity : 4 -Less Urgent Tracking Group : MAQN ED NAEEM BECKETT RN - 10/27/2012 19:53 CDT Allergy Latex Reaction : No Latex Hives/Itch : No Latex Congestion/Eye Irr/Breathing : No Latex Symptom Progression : No Latex Previous Test : No NAEEM BECKETT RN - 10/27/2012 19:53 CDT Allergies (Active) NKA Estimated Onset Date: Unspecified ; Created By: NAEEM BECKETT RN; Reaction Status: Active ; Category: Drug ; Substance: NKA ; Type: Allergy ; Updated By: NAEEM BECKETT RN; Reviewed Date: 10/27/2012 19:55 CDT ID Screen Drug Resistant Organism : No NAEEM BECKETT RN - 10/27/2012 19:53 CDT TB Symptoms Grid Bloody Sputum : No Fatigue : No Fever : No Loss of Appetite : No Night Sweats : No Persistent Cough Greater Than 3 Weeks : No Weight Loss : No NAEEM BECKETT RN - 10/27/2012 19:53 CDT Immunizations Influenza : None NAEEM BECKETT RN - 10/27/2012 19:53 CDT Respiratory Airway : Patent Respirations : Unlabored Respiratory Pattern : Regular NAEEM BECKETT RN - 10/27/2012 19:53 CDT Cardiovascular Heart Rhythm : Regular Skin Color : Normal for ethnicity Skin Description : Dry Skin Temperature : Warm NAEEM BECKETT RN - 10/27/2012 19:53 CDT Neurological Last Well Time Known : Not applicable Level of Consciousness : Alert Orientation : Oriented x 3 Characteristics of Speech : Appropriate for age NAEEM BECKETT RN - 10/27/2012 19:53 CDT ED Psychosocial Affect/Behavior : Calm Domestic Abuse Concerns : None NAEEM BECKETT RN - 10/27/2012 19:53 CDT Gastrointestinal Nutrition ED : Adequate NAEEM BECKETT RN - 10/27/2012 19:53 CDT Musculoskeletal Fall Prevention Education Provided : Yes NAEEM BECKETT RN - 10/27/2012 19:53 CDT Social Habits Tobacco Use/Currently Using : No Smoking Status : Never smoker NAEEM BECKETT RN - 10/27/2012 19:53 CDT Alcohol Use Grid Alcohol Use : Yes Frequency : Occasionally NAEEM BECKETT RN - 10/27/2012 19:53 CDT Source: [facility] Document Id: [id number] documented in this encounter ED Notes Naeem Beckett R.N. - 10/27/2012 8:54 PM CDT ED Disposition Summary ED Disposition Summary Entered On: 10/27/2012 20:55 CDT Performed On: 10/27/2012 20:54 CDT by NAEEM BECKETT RN ED Disposition Summary Accompanied By : Grandparent Mode of Discharge : Ambulatory Transportation : Ground ambulance Printed Discharge Instructions Given to Patient : Yes NAEEM BECKETT RN - 10/27/2012 20:54 CDT Source: [facility] Document Id: [id number] Lily Turcios M.D. - 10/27/2012 8:13 PM CDT Foot pain-swelling Patient: NEDA STRINGER Age: 27 years Sex: Female : 1985 Author: LILY TURCIOS MD Attachments: None Associated Diagnosis: Contusion of the foot 924.20 Basic Information Additional information: Chief Complaint from Nursing Triage Note : Chief Complaint Description. 10/27/2012 19:53 CDT Chief Complaint Description Pt presents for eval of left foot pain. Pt states that the pain started on . No injury. History of Present Illness The patient presents with left,foot pain. The onset was 2 days ago. The course/duration of symptoms is fluctuating in intensity. Type of injury: on feet a lot and does dancing as well. Location: Left plantar surface. The character of symptoms is pain. The degree at present is minimal. The exacerbatingfactor is weight bearing. The relieving factor is none. [facility] Risk factors consist of none. Prior episodes: none. Therapy today: none. Associated symptoms: none. Additional history: none. Review of Systems Constitutional symptoms: Negative except as documented in HPI. Skin symptoms: Negative except as documented in HPI. Eye symptoms: Negative except as documented in HPI. ENMT symptoms: Negative except as documented in HPI. Respiratory symptoms: Negative except as documented in HPI. Cardiovascular symptoms: Negative except as documented in HPI. Gastrointestinal symptoms: Negative except as documented in HPI. Musculoskeletal symptoms: Negative except as documented in HPI. Psychiatric symptoms: Negative except as documented in HPI. Additional review of systems information: All other systems reviewed and otherwise negative. Health Status Allergies: . Allergic Reactions (Selected) NKA Past Medical/ Family/ Social History Medical history: Negative. Surgical history: Negative. Family history: Not significant. Physical Examination Vital Signs Vital Signs. 10/27/2012 19:53 CDT Temperature Core 37 DegC Peripheral Pulse Rate 83 /min SpO2 100 % Systolic Blood Pressure 147 mmHg HI Diastolic Blood Pressure 97 mmHg >HHI Mean Arterial Pressure 114 mmHg Measurements. 10/27/2012 19:53 CDT Height 175 cm Dosing Weight 80 kg Estimated Weight 80 kg SpO2. 10/27/2012 19:53 CDT SpO2 100 % General: Mild distress. Skin: Warm, dry and pink. Head: Normocephalic. Cardiovascular: Regular rate and rhythm. Respiratory: Lungs are clear to auscultation. Chest wall: No tenderness. Musculoskeletal: Ankle/foot left and plantar Gastrointestinal: Soft and Nontender. Psychiatric: Cooperative. Medical Decision Making Differential Diagnosis:stress fracture, not contusion. Reexamination/ Reevaluation Vital signs SpO2 10/27/2012 19:53 CDT SpO2 100 % Impression and Plan Diagnosis Contusion of the foot 924.20 (Discharge, Emergency medicine, Medical) Electronically Signed By: LILY TURCIOS MD On: 10/27/2012 08:34 PM Modified by and Electronically Signed by: LILY TURCIOS MD On: 10/27/2012 08:34 PM Source: [facility] Document Id: [id number]} documented in this encounter Miscellaneous Notes Miscellaneous - Naeem Beckett, R.N. - 10/27/2012 7:48 PM CDT Facility Charge Ticket Facility Charge Ticket Entered On: 10/27/2012 20:55 CDT Performed On: 10/27/2012 19:48 CDT by NAEEM BECKETT RN Facility Charge [facility] Disposition : Discharge [facility] Total Points with Diagnosis Control : 5 [facility] Visit Level : 39487 Level 3 CHARLA FERRELL - 10/30/2012 8:56 CDT TVL Level for Facility Charge Ticket : Level 3 Mode of Arrival ED : Private vehicle [facility] Mode of Arrival Interpreted : Standard [facility] Process Management : None [facility] Order Management : Xray - plain films 30 Minutes Critical Care : No [facility] Nursing Assessment : Triage only NAEEM BECKETT RN - 10/27/2012 20:55 CDT Source: [facility] Document Id: [id number]!5 documented in this encounter Plan of Treatment Not on filedocumented as of this encounter Procedures Procedure Name Priority Date/Time Associated Diagnosis Comme nts DX FOOT LEFT 3+ Routine 10/27/2012 8:30 PM Result s for this VIEWS CDT procedure are i n the results section. documented in this encounter Results DX Foot Left 3+ Views (10/27/2012 8:30 PM CDT) Anatomical Region Laterality Modality Lower Extremity, Foot Left Radiographic Imagi ng Specimen (Source) Anatomical Collection Method Collection Time Re ceived Time Location / / Volume Laterality 10/27/2012 8:30 PM CDT Addenda Addendum by ProviderJacy M.D. o n 10/27/2012 8:30 PM CDT RAD^^^MA XR Foot Left 3 or more views 10/27/2012 20:30:00 Narrative 10/27/2012 8:28 PM CDT Technique: Multiple views of the left fo ot were obtained. No prior studies are available for comparison. FINDINGS: There are no evidence of fract ure, dislocation/subluxation or focal destruction. The joint spaces a re maintained and no soft tissue abnormality is seen. ??No radiopa que foreign bodies identified. Impression: No radiographic evidence of acute pathology. Procedure Note Colt Azul M.D. / ProviderRachel M.D. - 12/09/2016 Technique: Multiple views of the left fo ot were obtained. No prior studies are available for comparison. FINDINGS: There are no evidence of fract ure, dislocation/subluxation or focal destruction. The joint spaces a re maintained and no soft tissue abnormality is seen. No radiopaqu e foreign bodies identified. Impression: No radiographic evidence of acute pathology. Sami Bowers(R)(CT), R.T.(R) IMG DIAGNOSTIC KENYON GING PROCEDURES documented in this encounter Visit Diagnoses Not on filedocumented in this encounter
--- OUTSIDE RECORDS SUMMARY | 2022-06-20 21:26 | XMS_ITS | Encounter Summary ---
:1985 Author Organization [facility] Address [address] [place] [address] Care Team Providers Name Role Phone Unavailable Primary Care Provider Unavailable Encounter Details Date Type Department Care Team Description 12/03/2012 Hospital Encounter HX [facility] [place] [address] Social History Tobacco Use Types Packs/Day Years [...] Notes Miscellaneous - Rox Dykes M.D. - 12/03/2012 12:09 PM CDT Results Notification Document Contains Addenda Addendum by GOLDIE COX RN on 05 Dec 2012 14:53:12 CDT noted. Addendum by ROX DYKES MD on 05 Dec 2012 09:52:39 CDT From: ROX DYKES MD To: GOLDIE COX RN; Sent: 12/05/2012 09:52:39 CDT Show up: 12/05/2012 09:52:00 CDT Subject: RE: Results Notification Yes, discussed pelvic US results with patienton Monday12/03/12. She was going to come in for a [id number] 4:15 pm on Monday12/04/12 and will be repeating an US in 4 weeks to see resolution of left ovarian cyat. If it persists or if she has an acute bout of pain in the interim, she was advised to come in to the office or ER. P Addendum by ROX DYKES MD on 05 Dec 2012 09:52:27 CDT From: ROX DYKES MD To: GOLDIE COX RN; Sent: 12/05/2012 09:52:27 CDT Show up: 12/05/2012 09:52:00 CDT Subject: RE: Results Notification Yes, discussed pelvic US results with patienton Monday12/03/12. She was going to come in for a [id number] 4:15 pm on Monday12/04/12 and will be repeating an US in 4 weeks to see resolution of left ovarian cyat. If it persists or if she has an acute bout of pain in the interim, she was advised to come in to the office or ER. P Addendum by GOLDIE COX RN on 05 Dec 2012 08:21:11 CDT From: GOLDIE COX RN To: ROX DYKES MD; Sent: 12/05/2012 08:21:11 CDT Show up: 12/05/2012 08:20:00 CDT Subject: RE: Results Notification Were you able to notify pt of result? Addendum by GOLDIE COX RN on 03 Dec 2012 16:23:[address] Donis osman [facility] for pt to callback. From: ROX DYKES MD To: GOLDIE COX RN; Sent: 12/03/2012 12:09:09 CDT ! Show up: 12/03/2012 17:09:09 [facility] Subject: Results Notification Actions: Notify patient of results Reminder Comments: Please have pt. come in for a consult and a CA125 Results: Date Result Type Result Name 12/03/2012 9:35 Radiology US Pelvic And Endovaginal Source: [facility] POWERCHART Document Id: [id number] Electronically signed by Conversion, [facility] Inner Tube Inserter [id number] at 12/21/2016 4:18 AM CDT documented in this encounter Plan of Treatment Not on filedocumented as of this encounter Procedures Procedure Name Priority Date/Time Associated Comments Diagnosis US PELVIS TRANSVAGINAL Routine 12/03/2012 9:17 AM Results for this AND TRANSABDOMINAL CDT procedure are in the results section. documented in this encounter Results US Pelvis Transvaginal and Transabdominal (12/03/2012 9:17 AM CDT) Anatomical Region Laterality Modality Pelvis N/A Ultrasound Specimen (Source) Anatomical Collection Method Collection Time Re ceived Time Location / / Volume Laterality 12/03/2012 9:17 AM CDT Addenda Addendum by Provider, Tena Louie 12/03/2012 9:17 AM CDT RAD^^^MA US Pelvic And Endovaginal 12/03/2012 09:17:00 Impressions 12/03/2012 9:32 AM CDT 1. 5.0 cm complex left ovarian cystic ma ss, question hemorrhagic or chocolate cyst, recommend followup ultra sound in 3-4 weeks assess for resolution. 2. Normal right ovary and adnexa. 3. Small amount of free fluid in the pel dominga cul-de-sac. Narrative 12/03/2012 9:32 AM CDT EXAM: US Pelvic And Endovaginal INDICATION: right lower pelvic pain COMPARISON: 12/22/2011. FINDINGS: Transabdominal and transvagina l exams are performed. The uterus is midline in position and normal in size and appearance with an unremarkable endometrial stripe which measures 3 mm. No uterine mass or intrauterine fluid is identified . Right ovary is normal in size and appearance with small periphera l follicles and normal vascularity. There is no evidence of rig ht adnexal mass. Left ovary is enlarged in overall size containing a complex ovarian mass measuring 5.0 cm in greatest dimension. This appears to have both cystic and septated solid components wit h the solid components apparently nonvascular. This may represe nt a large hemorrhagic cyst or chocolate cyst in followup ultrasound in 3-4 weeks is recommended to assess for resolution. There is a sma ll amount of free fluid in the pelvic cul-de-sac. Procedure Note Jimmie Coronel Jr., M.D. / Jacy Judd M.D. - 12/09/2016 EXAM: US Pelvic And Endovaginal INDICATION: right lower pelvic pain COMPARISON: 12/22/2011. FINDINGS: Transabdominal and transvagina l exams are performed. The uterus is midline in position and normal in size and appearance with an unremarkable endometrial stripe which measures 3 mm. No uterine mass or intrauterine fluid is identified . Right ovary is normal in size and appearance with small periphera l follicles and normal vascularity. There is no evidence of rig ht adnexal mass. Left ovary is enlarged in overall size containing a complex ovarian mass measuring 5.0 cm in greatest dimension. This appears to have both cystic and septated solid components wit h the solid components apparently nonvascular. This may represe nt a large hemorrhagic cyst or chocolate cyst in followup ultrasound in 3-4 weeks is recommended to assess for resolution. There is a sma ll amount of free fluid in the pelvic cul-de-sac. IMPRESSION: 1. 5.0 cm complex left ovarian cystic ma ss, question hemorrhagic or chocolate cyst, recommend followup ultra sound in 3-4 weeks assess for resolution. 2. Normal right ovary and adnexa. 3. Small amount of free fluid in the pel dominga cul-de-sac. Shawn Cobb R.V.T.SDaniella IMG US PROCEDURES documented in this encounter Visit Diagnoses Not on filedocumented in this encounter
--- OUTSIDE RECORDS SUMMARY | 2022-06-20 21:27 | XMS_ITS | Clinical Summary ---
:1985 Author [facility] [place] [address] Care Team Providers Name Role Phone Chery Leary MD Primary Care Provider [phone] Allergies Not on File Medications Not on file Active Problems Not on file Social History Tobacco Use Types Packs/Day Years Used Date Never Assessed Sex Assigned at Date Recorded Not on file Plan of Treatment Upcoming Encounters Date Type Specialty Care Team Description 07/01/2022 Office Visit Pieter Fitch MD [address] [place] [phone] [phone] (Wo rk) Results Not on filefrom Last 3 Months Insurance Payer Benefit Plan / Subscriber ID Effective Dates Phone Addre ss Type Group BLUE CROSS BL[employer] OF [id number] 2016-Present [address] [address] [place] [address] 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
--- OUTSIDE RECORDS SUMMARY | 2022-06-20 21:27 | XMS_ITS | Encounter Summary ---
:1985 Author Organization [facility] Address [address] [place] [id number] Care Team Providers Name Role Phone Chery Leary MD Primary Care Provider [phone] Reason for Visit Auth/Cert Specialty Diagnoses / Procedures Referred By Contact Refer red To Contact Surgery Diagnoses LEFT ANKLE INSTABILITY Sh Periop Services Procedures COMBINED ARTHROSCOPY ANKLE, OPEN REPAIR LIGAMENT [address] [place] [address] Phone: Referral ID Status Reason Start Date Expiration Date Visits Requ ested Visits Authorized [id number] 1 1 Encounter Details Date Type Department Care Team Description 02/19/2018 Surgery [facility] Tia Moon LE FT ANKLE ARTHROSCOPY, [place] PeriOP DEBRIDEMENT, BROSTROM Services [facility] REPAIR [address] [facility] [address] [place] [address] [place], [place] [id number] (Wo rk) Surgery Details Date/Time Status Location OR Service Patient Case Case Traum a Class Class Type Case? 02/19/18 11:20 Posted Z SH SD SD 22 Orthopedics Same Day AM Surgery Panel 1 Procedure LRB Anes Op Region Wound Class Commen ts LEFT ANKLE ARTHROSCOPY, Left General Ankle I-Clean L EFT ANKLE ARTHROSCOPY, DEBRIDEMENT, BROSTROM DANIELA RIDEMENT, BROSTROM REPAIR REPAIR Surgeon Surgeon Role Service Panel Tia Moon MD Primary Orthopedics 1 Jim Aly, PACristalC Assisting Cord Maker Authorizatio n 1 documented in this encounter Social History Tobacco Use Types Packs/Day Years Used Date Smoking Tobacco: Never Smokeless Tobacco: Never Alcohol Use Standard Drinks/Week Comments Yes 0 (1 standard drink = 0.6 oz pure alcoho l) 2 / WEEK Sex Assigned at Date Recorded Not on file documented as of this encounter Last Filed Vital Signs Vital Sign Reading Time Taken Comments Blood Pressure 138/94 02/19/2018 9:23 AM CDT Pulse 85 02/19/2018 9:23 AM CDT Temperature 37.1 ??C (98.7 ??F) 02/19/2018 9:23 AM CDT Respiratory Rate 18 02/19/2018 9:23 AM CDT Oxygen Saturation 99% 02/19/2018 9:23 AM CDT Inhaled Oxygen Concentration - - Weight 104 kg (229 lb 4.8 oz) 02/19/2018 9:23 AM CDT Height 175.3 cm (5' 9) 02/19/2018 9:23 AM CDT Body Mass Index 33.86 02/19/2018 9:23 AM CDT documented in this encounter Discharge Instructions Discharge InstructionsMelissa Carranza RN - 02/19/2018 2:01 PM CDT Same Day Surgery Discharge Instructions for Sedation and General Anesthesia ?? It's not unusual to feel dizzy, light-headed or faint for up to 24 hours after surgery or while taking pain medication. If you have these symptoms: sit for a few minutes before standing and have someone assist you when you get up to walk or use the bathroom. ?? You should rest and relax for the next 24 hours. We recommend you make arrangements to have an adult stay with you for at least 24 hours after your discharge. Avoid hazardous and strenuous activity. ?? DO NOT DRIVE any vehicle or operate mechanical equipment for 24 hours following the end of your surgery. Even though you may feel normal, your reactions may be affected by the medication you have received. ?? Do not drink alcoholic beverages for 24 hours following surgery. ?? Slowly progress to your regular diet as you feel able. It's not unusual to feel nauseated and/or vomit after receiving anesthesia. If you develop these symptoms, drink clear liquids (apple juice, taylor rey, broth, 7-up, etc. ) until you feel better. If your nausea and vomiting persists for 24 hours, please notify your surgeon. ?? All narcotic pain medications, along with inactivity and anesthesia, can cause constipation. Drinking plenty of liquids and increasing fiber intake will help. ?? For any questions of a medical nature, call your surgeon. ?? Do not make important decisions for 24 hours. ?? If you had general anesthesia, you may have a sore throat for a couple of days related to the breathing tube used during surgery. You may use Cepacol lozenges to help with this discomfort. If it worsens or if you develop a fever, contact your surgeon. ?? If you feel your pain is not well managed with the pain medications prescribed by your surgeon, please contact your surgeon's office to let them know so they can address your concerns. POST-OPERATIVE INSTRUCTIONS FOOT AND ANKLE SURGERY Ned Moon M.D. Yoshi Aly P.A.-C These precautions MUST be followed for the first 24 hours after surgery: ??? Upon discharge, go directly home. ??? You must make arrangements to have a responsible adult stay with you. ??? DO NOT DRINK ALCOHOLIC BEVERAGES ??? It is not unusual to feel lightheaded up to 24 hours after surgery or while taking pain medication. If you feel lightheaded, sit for a few minutes before standing and have someone assisted you whenyou get up to walk or use the restroom. ??? Do not use any mechanical equipment. ??? Do not make any important or legal decisions for 24 hours or while on pain medications. ??? You may experience dry mouth, sore throat, or sleep disturbances from the anesthesia and medications used during surgery. Generalized muscle aches can sometimes occur. These usually disappear in 12-24 hours. POST-OPERATIVE CARE GUIDELINES The following are general guidelines about what to expect the first days/weeks after surgery. They are not specific, and your recovery may be slightly different. Blood clots are not common, but are emergencies. If you have sudden onset pain in your calf or leg, or have sudden shortness of breath, go to the Emergency Department. ??? Elevation of your operative foot/ankle is elizabeth to reducing the swelling in the immediate post-operative phase (first 3-5 days). When you are at rest, elevate your foot at or above the level of your heart. When sitting, your foot should be elevated on a chair or stool; not hanging down. ??? You should plan to rest the day after surgery no matter how minor the procedure. More complicated procedures will require more time to return to normal activity. ??? Foot and ankle surgery is painful in most cases - use your medication as directed for the first 24 hours after surgery. It is not unusual for the pain to be worse a day or two after surgery than onthe day of. If your pain is more than 8/10 contact our office. If you don???t have pain, gradually decrease your pain meds by substituting Tylenol. Please don???t use Advil/ibuprofen unless we order itfor you. ??? You will be prescribed Percocet or Vicodin for pain, Vistaril for spasms/pain adjunct, Senokot for constipation. If you have had trouble taking these meds before or experience nausea or vomiting after surgery from your medication, please advise the recovery room nurses. If you are already at home, try drinking only clear liquids and/or call our office. ??? All pain medications, along with inactivity can cause constipation. Use the Senakot as directed,increase fluid intake to 1 quart per day and increase your dietary fiber. (The ???P?? fruits - peaches, plums, pears, and prunes as well as anise/black licorice are recommended.) ??? It is not unusual to run a low-grade fever after surgery. If your temperature is elevated above 102??, lasts longer than 24 hours, or is questionable in any way, contact our office. ??? Drainage from your cast/dressing is normal. Reinforce your cast/dressing with 4x4 dressings and cover with an Eusebio wrap. Wait until 24 hours after surgery to change your dressings; by this time mostof your bleeding will have stopped. If you have drainage through your dressings 2 days after surgery, contact our office. ??? You cast/dressing will be changed at your 2-week follow up appointment. They should be kept clean and DRY. If your cast/dressing is damaged before that, contact our office. ??? It is normal to experience some bruising in the toes after surgery and they may appear ???dark?? when your foot hangs down. It is important to actively wiggle your toes for at least 5-10 minutes each hour UNLESS you had surgery on those toes. ??? Use ice on your foot/ankle over the dressing/cast for 20 minutes per hour, 10 or more times per day. A large bag of frozen peas works well. ??? Bathing: take a tub or sponge bath instead of a shower if possible during the first two weeks. If you choose to shower, cover the dressing/cast with a waterproof covering, these may be ordered from[employer] or are available at some pharmacies/medical supply stores. Another option is XeroSox, which is the original vacuum sealed bandage and cast cover. The cast cover has a vacuum seal andis absolutely waterproof. or www.xerosox[employer] for more information. ??? Driving: For surgery on the left foot/ankle, you may drive as soon as narcotic medications are stopped. For surgery on the right foot/ankle, you may drive when you are out of a cast, off pain medications, and you feel secure with braking. ??? In general, listen to your foot/ankle. If you have a sudden, dramatic increase in pain that doesnot resolve after an hour or so, something is wrong - call our office. If you fall or bump your foot/ankle and have sudden pain that resolves, give it 24 hours before you call. ??? Many of your questions can be addressed at your 2-week follow-up appointment - please make a list of things to ask us as they come up during your recovery. ??? If you had a nerve block it is common to have numbness in your leg and foot for up to 30 hours after surgery. If your leg or foot is still numb more than 30 hours after surgery, please call the office. ??? FUTURE DENTIST VISITS: If you have had a total ankle arthroplasty please be advised you must be on antibiotics prior to ANY dental work. Please call your dentist office ahead of time and make them aware of this as your dentist will be able to order the prescription. If you have had any other surgery this is not a concern. If you have any further questions or concerns, please call our office at Crutch Instructions Because of your surgery you will need crutches. Make sure you tell your healthcare provider if crutches do not seem to work for you. Using Crutches Crutches are the most commonly used device for injuries to the lower part of the body because they allow the most mobility. All walking assistance devices require strength in your upper body but crutches require more coordination. If you are unable to use crutches then a cane or walker may be better. Remember these rules when using crutches: Always look straight ahead when you walk. Do not look down. Hold the top padded part of the crutches into your chest near your armpits. Grasp the padded hand test preparation tutor and always support your weight with your arms and hands. Do not lean on the crutches with your armpit as this could cause nerve damage. Standing Up Make sure you are in a stable chair. Move forward to the edge of the chair so that your ???good?? foot is flat on the floor. Put both crutches together and hold the handgrips in one hand. Stretch the injured leg out straight and then use the crutches with one hand and the chair armrest with the otherhand to push yourself into a standing position onto your ???good?? leg. Once you are standing, waituntil you are steady before placing a crutch in each hand. Until you become good at standing, have someone assist you in case you lose your balance. When standing still, lean slightly forward with the crutches ahead of you and about 3 feet apart. Unless you are told otherwise, you should keep weight off your injured leg. Walking To begin crutch walking, balance yourself on your ???good?? leg. Move both crutches forward about the length of one step and place them firmly on the floor in front of you about 3 feet apart. Support your weight on the padded hand rests while leaning forward. Press the top of the crutches against your chest wall and not into your armpits. Be sure to hold the injured leg up off of the floor. When ready, swing the good leg forward about one step length past the crutches while supporting your weighton the padded hand test preparation tutor. Be careful not to go too far. Transfer your weight onto the good leg then bring both crutches forward about the length of one step. Repeating this motion will allow you to move fairly quickly without the use of your injured leg. Keep practicing until you become good at crutch walking. Sitting Down Make sure the chair you are about to sit on is stable. Walk in front of the chair such that you are facing away from it. Move back a little at a time until the back of your ???good?? leg is nearly touching the seat. Keeping your weight on the ???good?? leg, move both crutches to one hand holding onto the handgrips. Lean forward, bend your ???good?? knee, and move your injured leg out forward. Sit down slowly while using your free hand to reach for the chair???s armrest for support. Place the crutches where you can easily get them. Never pivot, even on your ???good?? leg. This could cause you tofall or injure your ???good?? leg. Navigating Stairs, Curbs & Door Steps Only attempt this once you are very comfortable with regular crutch walking and only when someone isthere to steady you should you begin to lose your balance. Hold on to a hand drawer in helper railing with onehand and both crutches in the other hand or have someone carry the loose crutch for you. It does notmatter which side the handrail is on. If there is no handrail, you can use both crutches. Using onlycrutches is the same as the railing method but maintaining your balance can be difficult. The crutch-only method is not recommended until you have become very good at crutch walking. Be sure to only take one step at a time. A simple rule to remember for crutches when navigating stairs or curbs: up with the ???good?? leg and down with the ???bad?? . Going Up Stairs or Curbs Walk close to the first step with the crutches slightly behind you. Push down on the handrail and the crutch and step up with the good leg. You may have to make a short hop to do this if you are not allowed to place any weight on the injured leg. Lean forward and bring the injured leg and the crutchup beside the good leg. Repeat this until you have climbed up all of the steps. Remember, the good leg goes up first and the crutches move with the injured leg. The person helping you should stand behind and to your side that is away from the railing. Going Down Stairs or Curbs Walk to the edge of the first step. While standing and balancing on the ???good?? leg, place both crutches in one hand and then down on the step below. Be sure to support your weight by leaning on thecrutches and handrail. Bring the injured leg forward, then the good leg down to the same step as the crutches. Remember crutches go down first with the injured leg. The person helping you should manager sharepoint front and to your side that is away from the railing. Sitting Method for Navigating Stairs A safer way to get up and down stairs is to sit down. To go up steps, sit down on the second or third step. Push with your ???good?? leg below while pushing up with both arms on the step above to moveyour bottom to the next step. When you get to the top of the stairs you may need to use the ???scooting?? method described later to get back up. To go down steps you first need to lower yourself to the floor near the top of the steps. Once seated, support yourself with your ???good?? leg on the second to next step below, and push with both arms on the step where you are sitting to move your bottom down to the next step. When you reach the bottom, pull yourself up to standing position using your crutches. It is helpful if someone can move your crutches and assist you in getting up and down. With practice it may be possible to manage on your own. If You Start To Fall If you start to fall and cannot get your balance, throw the crutches away from you. Try to fall ontoyour ???good?? side away from your injury and then break your fall with your arms. If uninjured, you can usually get back up by moving into a sitting position and scooting to a chair. Push with your arms and hands on the chair seat while pushing with the good leg to get up into the chair. You should not attempt to get back up if you are having significant pain. Call for assistance or dial 911 for an ambulance if necessary. Safety Tips for Crutch Walking At first you may want to wear a training belt (or a strong regular belt) so others can assist you. Do not use crutches if you feel dizzy or drowsy. Be careful on slick or wet surfaces like a kitchen or bathroom floor, snow, ice, or rainy conditions. Temporarily remove pets, throw rugs or other items from your home that might trip you. Do not hop around while holding onto furniture. Wear sneakers or rubber soled shoes that will not easily slip or come off. Be careful on ramps or slopes as they can be harder to walk up or down Do not remove any parts from your crutches especially the padding or rubber traction footings. Replace padding or footings that become damaged immediately. It is important to use your crutches correctly. If you feel any numbness or tingling in your arms, you are probably using the crutches incorrectly. Helpful Hints A bedside toilet or toilet riser may be helpful. Always allow for extra time to get around. Children in school should be given permission to leave class early to avoid crowds when changing classes. Elevate the injured leg when sitting. Use a backpack to carry books or waist pouch to carry other items so that both hands are free. Call your healthcare provider if you have any questions or concerns. Today you received Toradol, an antiinflammatory medication similar to Ibuprofen. You should not takeother antiinflammatory medication, such as Ibuprofen, Motrin, Advil, Aleve, Naprosyn, etc, until 7 pm tonight. documented in this encounter Medications at Time of Discharge Medication Sig Dispensed Refills Start Date End Date CYCLOBENZAPRINE HCL PO Take 5 mg by mouth 0 every evening Esomeprazole Magnesium Take 10 mg by mouth 0 (NEXIUM PO) every morning HYDROcodone-acetaminophen Take 1-2 tablets by 25 tablet 0 0 02/19/2018 (NORCO) 5-325 MG per mouth every 4 hours tabletIndications: S/P as needed for other ankle ligament repair (Moderate to Severe Pain) ibuprofen (ADVIL/MOTRIN) Take 1 tablet (600 30 tablet 0 600 MG tabletIndications: mg) by mouth every 6 S/P ankle ligament repair hours as needed for pain (mild) ondansetron (ZOFRAN-ODT) 4 Take 1-2 tablets 12 tablet 0 MG ODT tabIndications: S/P (4-8 mg) by mouth ankle ligament repair every 8 hours as needed for nausea Dissolve ON the tongue. senna-docusate Take 1-2 tablets by 30 tablet 0 02/19/2018 (SENOKOT-S;PERICOLACE) mouth 2 times daily 8.6-50 MG per Take while on oral tabletIndications: S/P narcotics to prevent ankle ligament repair or treat constipation. SERTRALINE HCL PO Take 50 mg by mouth 0 every morning TRAZODONE HCL PO Take 50 mg by mouth 0 every evening documented as of this encounter Nursing Notes Melissa Carranza RN - 02/19/2018 1:39 PM CDT PNDS met, po per I&O sheet. Pt dressed, up in recliner and transported to Phase 2. Melissa Carranza RN - 02/19/2018 12:45 PM CDT Glasses returned to pt documented in this encounter Miscellaneous Notes Op Note - Tia Moon MD - 02/19/2018 1:43 PM CDT Procedure Date: 02/19/2018 PREOPERATIVE DIAGNOSIS: Chronic instability of the left ankle. POSTOPERATIVE DIAGNOSIS: Chronic instability of the left ankle. PROCEDURES: 1. Arthroscopy and extensive arthroscopic debridement of the left ankle. 2. Open Brostrom lateral ligament repair augmented with an internal brace. ANESTHESIA: General. SURGEON: Tia Moon MD ROTATING EQUIPMENT ENGINEER: Jim Aly MD PREAMBLE: Ms. Stringer presented with a very unstable left ankle after injury a long time ago that did not heal. She tried conservative management to no avail. Informed consent was obtained for the above-mentioned procedure. Two grams of Ancef was given prior to surgery. There is no need for postoperative antibiotic prophylaxis. DESCRIPTION OF PROCEDURE: After adequate induction of a general anesthetic, the patient was positioned supine on the operating table. The left leg was sterilely prepped and free draped in the usual fashion. Tourniquet around the thigh was inflated to 300 mmHg. A standard arthroscopy was done with medial and lateral portals. The scope was first inserted through the medial portal. There was significant synovial hypertrophy, and a shaver was used to remove all the excess tissue. There was no articular cartilage injury. There was significant lateral instability. The scar tissue was removed from the lateral side. The scope was then removed. A 5 cm curvilinear incision was made lateral over the ankle. The lateralligament complex was exposed. A Brostrom type repair was done, shortening and imbricating the anterior talofibular and calcaneofibular ligaments back onto the fibula. Due to the longstanding instability, the repair was augmented with an internal brace with SwiveLock anchors at the footprints of the ATF and the talus and the fibula. A very stable repair was obtained. The tourniquet was deflated. Hemostasis obtained. The wounds closed in layers. A sterile dressing, light compressive bandage and a short leg cast were applied. She tolerated the procedure well and was taken to the recovery room in satisfactory condition. She can ambulate weightbearing as tolerated. Sutures will be removed in 2 weeks. TIA MOON MD MT: LP Name: NEDA STRINGER MRN: [id number] Account: [id number] : 1985 Procedure Date: 02/19/2018 Document: [id number] documented in this encounter Plan of Treatment Not on filedocumented as of this encounter Procedures Procedure Name Priority Date/Time Associated Diagnosis Comme nts ARTHROSCOPY, ANKLE, 02/19/2018 11:14 LEFT ANKLE WITH OPEN REPAIR OF AM CDT INSTABILITY ANKLE LIGAMENT HCG QUALITATIVE STAT 02/19/2018 9:17 AM Result s for this URINE CDT procedure are i n the results section. documented in this encounter Results HCG qualitative urine (02/19/2018 9:17 AM CDT) P athologist Signature HCG Qual Urine Negative NEG^Negati 02/19/2018 [place] ve 9:[address] [facility] Comment: This test is for screening purposes. ??R esults should be interpreted along with the clinical picture. ??Confirmation te sting is available if warranted by ordering [id number], HCG Quantitative Pregna ncy. Specimen Anatomical Collection Method Collection Time Receive d Time (Source) Location / / Volume Laterality Urine specimen URINE SPECIMEN 02/19/2018 9:17 AM 02/19 9:24 (specimen) OBTAINED BY CLEAN CDT AM CDT CATCH PROCEDURE / Unknown [facility] - URINE ORDERABLES Performing Organization Address City/State/ZIP Code Phon e Number M [facility] [address] [place] [id number] [phone] [facility] [address] [place] [address], U [phone] documented in this encounter Visit Diagnoses Not on filedocumented in this encounter Administered Medications Inactive Administered Medications - up to 3 most recent administrations Medication Order MAR Action Action Date Dose Rate Site fentaNYL (PF) (SUBLIMAZE) Given 02/19/2018 12:37 PM CDT 50 mcg injection 25-50 mcg 25-50 mcg, Intravenous, EVERY 2 MIN PRN, other, acute pain while in PACU., Starting on Mon02/19/18 at 1220, MAX cumulative dose = 250 mcg. Use Fentanyl initially, as a short acting agent for acute pain control. If insufficient, or a longer acting agent is needed, begin Morphine or Hydromorphone if ordered. For ordered doses up to 100 mcg give IV Push undiluted over a minimum of 3-5 minutes., PACU Given 02/19/2018 12:23 PM CDT 50 mcg HYDROcodone-acetaminophen (NORCO) 5-325 MG Given 02/19 1:24 PM CDT 1 tablet per tablet 1 tablet 1 tablet, Oral, ONCE PRN, other, pain control or improvement in physical function., Starting on Mon02/19/18 at 1220, For 1 dose, Notify provider to assess for uncontrolled pain or analgesic side effects. Maximum acetaminophen dose from all sources= 75 mg/kg/day not to exceed 4 grams, Post-procedure HYDROmorphone (PF) (DILAUDID) injection Given 02/19/2018 1:16 PM CDT 0.5 mg 0.3-0.5 mg 0.3-0.5 mg, Intravenous, EVERY 10 MIN PRN, other, acute pain.?May administer if Respiratory Rate is greater than 10, Starting on Mon02/19/18 at 1220, If fentanyl is also ordered, use HYDROmorphone if pain control insufficient with fentanyl or a longer acting agent is needed. Max cumulative dose = 2 mg For ordered doses up to 4 mg give IV Push undiluted. Administer each 2mg over 2-5 minutes., PACU/Phase II Given 02/19/2018 12:59 PM CDT 0.5 mg hydrOXYzine (ATARAX) tablet 25 mg Given 02/19/2018 9:51 AM CDT 25 mg 25 mg, Oral, 3 TIMES DAILY PRN, itching, Starting on Mon02/19/18 at 0950, Pre-procedure ketorolac (TORADOL) injection 30 mg Given 02/19/2018 12:44 PM CDT 30 mg 30 mg, Intravenous, ONCE, Administer over 2 Minutes, On Mon02/19/18 at 1245, For 1 dose, Can cause pain on injection. Administer through a running maintenance fluid over 1 minute followed by a flush. If patient complains of pain on injection, may dilute 15-30 mg in 5 mL and push over 1 to 2 minutes. , PACU lactated ringers infusion New Bag 02/19/2018 12:53 PM CDT 100 mL/hr at 100 mL/hr, Intravenous, CONTINUOUS, Continue until IV catheter is weaned, PACU/Phase II, Starting on Mon02/19/18 at 1230, Until Mon02/19/18 at 1636 meperidine (DEMEROL) injection 12.5 mg 12.5 mg, Intravenous, EVERY 15 MIN PRN, post anesthesia shivering, Starting on Mon02/19/18 at 1220, For 2 doses, Give IV Pu sh undiluted. 10-40 mg over 2-3 minutes, up to 125 mg over 3-15 minutes, PACU/Phase II naloxone (NARCAN) injection 0.1-0.4 mg 0.1-0.4 mg, Intravenous, EVERY 2 MIN PRN , opioid reversal, Starting on Mon02/19/18 at 1220, For 24 hours, For apnea or imminent respirato ry arrest: give 0.4 mg IV undiluted Q 2 minutes PRN until desired degree of reversal is obtained, stop opioid and notify provider. Continue monitoring until dischar ge are criteria met for a minimum of 2 hours. For severe sedation, decrease in respiratory depth, quality or Respiratory Rate greater than 8: give 0. 1 mg IV Q 2 minutes x 3 doses, stop opioid and notify provider. Try to minimize reversal of analg esia especially in end-of-life patients. Continue monitorin g until discharge criteria are met for a minimum of 2 hours. For ordered doses up to 2mg give IVP. Give each 0.4mg over 15 seconds in emergency situations. For non -emergent situations further dilute in 9mL of NS to facilitate titration of response., PACU/Phase II ondansetron (ZOFRAN) injection 4 mg 4 mg, Intravenous, EVERY 30 MIN PRN, jose sea, vomiting, Administer over 2-5 Minutes, Starting on Mon02/19/18 at 1220, For 2 d oses, MAX total dose = 8 mg, including OR dosing. This is step 1 of nausea and vomiting manageme nt. If not resolved in 15 minutes, then go to step 2 [prochlorpera zine (COMPAZINE) if ordered]. Irritant. For ordered doses up to 4 mg, give IV Push u ndiluted over 2-5 minutes., PACU/Phase II ondansetron (ZOFRAN-ODT) ODT tab 4 mg 4 mg, Oral, EVERY 30 MIN PRN, nausea, vo miting, Starting on Mon02/19/18 at 1220, For 2 doses, MAX total dose = 8 mg, incl uding OR dosing. This is step 1 of nausea and vomiting management. If not resolved in 15 minutes , then go to step 2 [prochlorperazine (COMPAZINE) if ordered ]. With dry hands, peel back foil backing and gently remove tablet; do not push oral disintegrat ing tablet through foil backing; administer immediately on tongu e and oral disintegrating tablet dissolves in seconds; then swallow with saliva; liquid not requi red., PACU/Phase II ORAL Pain Medications - may administer a s ordered by surgeon for take home use CONTINUOUS PRN, Starting on Mon02/19/18 at 1220, Until Mon02/19/18 at 1636, May administer oral pain medications as ordered by surgeon for take home use. Discontinue IV pain medication prior to administration of oral pain medication., PACU/Phase II prochlorperazine (COMPAZINE) injection 1 0 mg 10 mg, Intravenous, EVERY 6 HOURS PRN, nausea, vomitin g, Administer over 1-2 Minutes, Starting on Mon02/19/18 at 1220, This is Step 2 of nausea and vomiting management. If nausea not resolved in 15 minutes, give metoclopramide (REGLAN) if ordered [step 3 of nausea and vomiting m anagement]. For ordered doses up to 10 mg, give IV Push undiluted. Each 5mg over 1 minute., PACU/ Phase II sodium chloride 0.9% (bag) Given 02/19/2018 11:45 AM 300 mLs Operative Site/Surgical irrigation CDT Site PRN, Starting on Mon02/19/18 at 1145, Intra-procedure sodium chloride 0.9% Given 02/19/2018 11:55 AM 1,000 mLs Operative (bottle) irrigation CDT Site/Surgical S ite PRN, Starting on Mon02/19/18 at 1155, Intra-procedure documented in this encounter Active and Recently Administered Medications Times are shown in CDT. Scheduled Medication Order 02/17/2018 02/18/2018 02/19/2018 ceFAZolin (ANCEF) intermittent infusion 2 g in 100 mL dextrose PRE-MIX (COMPLETED) 1127 (Given - Provid er: Radha Londono APRN CRNA) Routine, 2 g, Intravenous, PRE-OP/PRE-HI OCEDURE, Starting on Mon02/19/18 at 0916, For 1 dose, Give first dose within 1 hour PRIOR to incision. If patient weight is greater than or equal to 120 kg increa se dose to 3 g., Indications: Perioperative Pharmacoprophyla xis, Pre-procedure ketorolac (TORADOL) injection 30 mg (COMPLETED) 1244 (Given - Provider: Melissa Carranza RN) 30 mg, Intravenous, ONCE, Administer ove r 2 Minutes, On Mon02/19/18 at 1245, For 1 dose, Can cause pain on injection. Administer through a running maintenance fluid over 1 minute followed by a flush. If patient complains of pain on injection, may dilute 15-30 mg in 5 mL and push over 1 to 2 minutes. , PACU Continuous Medication Order 02/17/2018 02/18/2018 02/19/2018 lactated ringers infusion (CANCELED) 1127 (New Bag - Provider: Radha Londono APRN CRNA)1151 (Anesthesia Volume Adjustment - Provider: Radha Londono APRN CRNA) at 100 mL/hr, Intravenous, CONTINUOUS, P re-procedure, Starting Mon02/19/18 at 0930, Until Mon02/19/18 at 1218 lactated ringers infusion 1253 ( New Bag - Provider: Melissa Carranza RN) at 100 mL/hr, Intravenous, CONTINUOUS, C ontinue until IV catheter is weaned, PACU/Phase II, Starting Mon02/19/18 at 1230, Until Mon02/19/18 at 1636 PRN Medication Order 02/17/2018 02/18/2018 02/19/2018 fentaNYL (PF) (SUBLIMAZE) injection 25-50 mcg 1223 (Given - Provider: Melissa Carranza RN)1237 (Given - Provider: Melissa Carranza RN) 25-50 mcg, Intravenous, EVERY 2 MIN PRN, Starting Mon02/19/18 at 1220, other, acute pain while in PACU., MAX cumulative dose = 250 mcg. Use Fentanyl initially, as a short acting agent for acute pain con trol. If insufficient, or a longer actin g agent is needed, begin Morphine or Hydromorphone if ordered. For ordered doses up to 100 mcg give IV Push undiluted over a minimum of 3-5 minutes., PACU HYDROcodone-acetaminophen (NORCO) 5-325 MG per tablet 1 tablet ( COMPLETED) 1324 (Given - Provider: Melissa Carranza RN) 1 tablet, Oral, ONCE PRN, other, pain co ntrol or improvement in physical function., Starting on Mon02/19/18 at 1220, For 1 dose, Notify provider to assess for uncontrolled pain or analgesic side effects . Maximum acetaminophen dose from all so urces= 75 mg/kg/day not to exceed 4 grams, Post-procedure HYDROmorphone (PF) (DILAUDID) injection 0.3-0.5 mg 1259 (Given - Provider: Melissa Carranza, NAGI)1316 (Given - Provider: Melissa Carranza RN) 0.3-0.5 mg, Intravenous, EVERY 10 MIN HI N, Starting 02/19/18 at 1220, Until Mon02/19/18 at 1636, other, acute pain.?May administer if Respiratory Rate is greater than 10, PACU/Phase II, If fentany l is also ordered, use HYDROmorphone if pain control insufficient with fentanyl or a longer acting agent is needed. Max cumulative dose = 2 mg For ordered doses up to 4 mg give IV Push undiluted. Administer each 2mg over 2-5 minutes. hydrOXYzine (ATARAX) tablet 25 mg (CANCELED) 0951 (Given - Provider: Juli Crooks RN) 25 mg, Oral, 3 TIMES DAILY PRN, itching, Starting Mon02/19/18 at 0950, Pre-procedure meperidine (DEMEROL) injection 12.5 mg 12.5 mg, Intravenous, EVERY 15 MIN PRN, 2 doses, Starting Mon02/19/18 at 1220, Until Mon02/19/18 at 1636, post anesthesia shivering, PACU/Phase II, Give IV Push undiluted. 10-40 mg over 2-3 minutes, up to 125 mg over 3-15 minutes naloxone (NARCAN) injection 0.1-0.4 mg 0.1-0.4 mg, Intravenous, EVERY 2 MIN PRN , opioid reversal, Starting Mon02/19/18 at 1220, For 24 hours, For apnea or imminent respiratory arrest: give 0.4 mg IV undiluted Q 2 minutes PRN until desired de gree of reversal is obtained, stop opioi d and notify provider. Continue monitoring until discharge are criteria met for a minimum of 2 hours. For severe sedation, decrease in respiratory depth, quality or Respiratory Rate greater than 8: give 0.1 mg IV Q 2 minutes x 3 doses, stop opioid and notify provider. Try to minimize reversal of analgesia especially in end-of-life patients. Continue monitoring u ntil discharge criteria are met for a mi nimum of 2 hours. For ordered doses up to 2mg give IVP. Give each 0.4mg over 15 seconds in emergency situations. For non-emergent situations further dilute in 9mL of NS to facilitate titration of response., PACU/Phase II ondansetron (ZOFRAN) injection 4 mg(Linked Group 1) 4 mg, Intravenous, EVERY 30 MIN PRN, jose sea, vomiting, Administer over 2-5 Minutes, Starting 02/19/18 at 1220, For 2 doses, MAX total dose = 8 mg, including OR dosing. This is step 1 of nausea and vo miting management. If not resolved in 15 minutes, then go to step 2 [prochlorperazine (COMPAZINE) if ordered]. Irritant. For ordered doses up to 4 mg, give IV Push undiluted over 2-5 minutes., PACU/Phase II ondansetron (ZOFRAN-ODT) ODT tab 4 mg(Linked Group 1) 4 mg, Oral, EVERY 30 MIN PRN, nausea, vo miting, Starting Mon02/19/18 at 1220, For 2 doses, MAX total dose = 8 mg, including OR dosing. This is step 1 of nausea and vomiting management. If not resolved i n 15 minutes, then go to step 2 [prochlo rperazine (COMPAZINE) if ordered]. With dry hands, peel back foil backing and gently remove tablet; do not push oral disintegrating tablet through foil backing; a dminister immediately on tongue and oral disintegrating tablet dissolves in seconds; then swallow with saliva; liquid not required., PACU/Phase II ondansetron (ZOFRAN-ODT) ODT tab 4 mg 4 mg, Oral, ONCE PRN, nausea, vomiting, post-operative, Starting 02/19/18 at 1220, For 1 dose, One time prior to discharge. With dry hands, peel back foil backing and gently remove tablet; do not pus h oral disintegrating tablet through foi l backing; administer immediately on tongue and oral disintegrating tablet dissolves in seconds; then swallow with saliva; liquid not required., Post-procedure ORAL Pain Medications - may administer as ordered by surgeon for take home use CONTINUOUS PRN, Starting Mon02/19/18 at 1220, Until Mon02/19/18 at 1636, May administer oral pain medications as ordered by surgeon for take home use. Discontinue IV pain medication prior to administration of oral pain medication., PACU/Phase II prochlorperazine (COMPAZINE) injection 10 mg 10 mg, Intravenous, EVERY 6 HOURS PRN, n ausea, vomiting, Administer over 1-2 Minutes, Starting Mon02/19/18 at 1220, This is Step 2 of nausea and vomiting management. If nausea not resolved in 15 minutes , give metoclopramide (REGLAN) if ordere d [step 3 of nausea and vomiting management]. For ordered doses up to 10 mg, give IV Push undiluted. Each 5mg over 1 minute., PACU/Phase II sodium chloride 0.9% (bag) irrigation (CANCELED) 1145 (Given - Provider: Tia Moon MD) PRN, Starting 02/19/18 at 1145, Intra-procedure sodium chloride 0.9% (bottle) irrigation (CANCELED) 1155 (Given - Provider: Tia Moon MD) PRN, Starting Mon02/19/18 at 1155, Intra-procedure Linked Groups Order Group 1: ondansetron (ZOFRAN-ODT) ODT tab 4 mgJump to med 4 mg, Oral, EVERY 30 MIN PRN, nausea, vo miting, Starting Mon02/19/18 at 1220, For 2 doses
MAX total dose = 8 mg, including OR dosing. This is step 1 of nausea and vomiting management. If not resolved in 15 minutes, the n go to step 2 [prochlorperazine (COMPAZINE) if ordered]. With dry hands, peel back foil backing and gently remove tablet; do not push oral disintegr ating tablet through foil backing; admin ister immediately on tongue and oral disintegrating tablet dissolves in seconds; then swallow with saliva; liquid not required.
PACU/Phase II Or ondansetron (ZOFRAN) injection 4 mgJump to med 4 mg, Intravenous, EVERY 30 MIN PRN, jose sea, vomiting, Administer over 2-5 Minutes, Starting 02/19/18 at 1220, For 2 doses
MAX total dose = 8 mg, including OR dosing. This is step 1 of nause a and vomiting management. If not resolved in 15 minutes, then go to step 2 [prochlorperazine (COMPAZINE) if ordered]. Irritant. For ordered doses up to 4 mg, give IV Push undiluted over 2-5 minutes.
PACU/Phase II documented in this encounter Care Teams Organ Tuner Electronic Relationship Specialty Start Date End Date Chery Leary MD PCP - General Family Practice 02/12/[address] [address] documented as of this encounter
--- OUTSIDE RECORDS SUMMARY | 2022-06-20 21:27 | XMS_ITS | Encounter Summary ---
:1985 Author Organization [facility] Address [facility] [place] [address] Care Team Providers Name Role Phone Chery Leary MD Primary Care Provider [phone] Reason for Visit Auth/Cert Specialty Diagnoses / Procedures Referred By Contact Refer red To Contact Surgery Diagnoses LEFT ANKLE INSTABILITY Sh Periop Services Procedures COMBINED ARTHROSCOPY ANKLE, OPEN REPAIR LIGAMENT [address], [address] [place] [phone] Phone: Referral ID Status Reason Start Date Expiration Date Visits Requ ested Visits Authorized [id number] 1 1 Encounter Details Date Type Department Care Team Description 02/19/2018 Anesthesia Event [facility] Cat Horton MD [place] [address], [address] [facility] [address] [place] [phone] [place] [address] [phone] (Wo rk) Anesthesia Record Procedure Summary Procedure Name Responsible Anesthesia Start Anesthesia Stop Time Anesthesiologist Time LEFT ANKLE Cat Horton MD 02/19/18 1124 02/19/18 122 2 ARTHROSCOPY, DEBRIDEMENT, BROSTROM REPAIR (Left: Ankle) Events Date Time Event Comment 02/19/2018 0952 1124 An Start 1124 An Start Data 1126 MD Present 1127 An Induction 1127 An Intubation 1127 AN START SEVO 1133 An Tourn Inflated 300mmhg 1135 AN INCISION 1154 An Tourn Deflated 1201 AN END SEVO 1212 LMA Removed 1215 an stop data 1222 An Stop Electronically s igned by Radha Londono on February 19, 2018 12:22 P M Name Total dexamethasone 4mg/mL 4 mg fentaNYL (SUBLIMAZE) injection 150 mcg lidocaine 2% 40 mg midazolam 1mg/mL 2 mg ondansetron 2mg/mL 4 mg propofol (DIPRIVAN) injection 10 mg/mL vial 200 mg propofol infusion (mcg/kg/min) 171.6 mg ceFAZolin (ANCEF) intermittent infusion 2 g in 100 mL dextrose PRE-MIX 2 g lactated ringers infusion 300 mL Agents Name NO HELIOX O2 N2O Air Exp Sevoflurane Exp Isoflurane Exp Desflurane Exp N2O O2 Delivery Device Ins Sevoflurane Ins Isoflurane Ins Desflurane O2 Auxiliary Blood No blood administrations on file. Lines, Drains, and Airways Type Details Placement Removal Incision/Surgical Site 02/19/18; 1156; Left; 02/19/18 1156 by Ankle; lateral Lilly Hancock RN incision Incision/Surgical Site 02/19/18; 1156; Left; 02/19/18 1156 by Foot; trocar Lilly Hancock, RN incisions x 2 anterior foot Retired Non-Surgical Easy; Intravenous; 4; 02/19/18 1133 by 01/23 1212 by Airway laryngeal mask Mil Londono, airway; midline; MANAGER OF PROCUREMENT RN TRIAGE Equal, clear and bilateral; SRNA; BS Peripheral IV 02/19/18; 1003; 22 G; 02/19/18 1003 by 02/19/18 1339 by Left; Hand; Tolerated Juli Crooks, Melissa Carranza, well; SURGERY RN RN documented in this encounter Social History Tobacco Use Types Packs/Day Years Used Date Smoking Tobacco: Never Smokeless Tobacco: Never Alcohol Use Standard Drinks/Week Comments Yes 0 (1 standard drink = 0.6 oz pure alcoho l) 2 / WEEK Sex Assigned at Date Recorded Not on file documented as of this encounter OR Notes Anesthesia Postprocedure Evaluation - Cat Horton MD - 02/19/2018 1:43 PM CDT Patient: Neda Valladares Procedure(s): LEFT ANKLE ARTHROSCOPY, DEBRIDEMENT, BROSTROM REPAIR - Wound Class: I-Clean Diagnosis:LEFT ANKLE INSTABILITY Diagnosis Additional Information: No value filed. Anesthesia Type: General, LMA Note: Anesthesia Post Evaluation Patient location during evaluation: PACU Patient participation: Able to fully participate in evaluation Level of consciousness: awake Pain management: adequate Airway patency: patent Cardiovascular status: acceptable Respiratory status: acceptable Hydration status: acceptable PONV: none Anesthetic complications: None Last vitals: Vitals: 02/19/18 1315 02/19/18 1316 02/19/18 1330 BP: (!) 143/96 (!) 151/93 Pulse: Resp: 14 16 Temp: SpO2: 99% 100% 99% Electronically Signed By: Cat Horton MD February 19, 2018 1:43 PM Anesthesia Preprocedure Evaluation - Cat Horton MD - 02/19/2018 8:22 AM CDT Anesthesia Evaluation . Pt has had prior anesthetic. Type: MAC ROS/MED HX ENT/Pulmonary: (-) sleep apnea Neurologic: Cardiovascular: METS/Exercise Tolerance: >4 METS Hematologic: Musculoskeletal: GI/Hepatic: (-) GERD Renal/Genitourinary: Endo: (+) Obesity, . Psychiatric: (+) psychiatric history anxiety and depression Infectious Disease: Malignancy: Other: Physical Exam Normal systems: dental Airway Mallampati: III TM distance: >3 FB Neck ROM: full Dental Cardiovascular Rhythm and rate: regular and normal Pulmonary breath sounds clear to auscultation Anesthesia Plan History & Physical Review History and physical reviewed and following examination; no interval change. ASA Status: 2 . NPO Status: > 8 hours Plan for General and LMA with Intravenous induction. Maintenance will be Balanced. PONV prophylaxis: Dexamethasone or Solumedrol and Ondansetron (or other 5HT-3) toradol if ok with surgeon Vistaril PO in preop Postoperative Care Consents Anesthetic plan, risks, benefits and alternatives discussed with: Patient.. . documented in this encounter Miscellaneous Notes Anesthesia Care Transfer Note - Radha Londono APRN CRNA - 02/19/2018 12:22 PM CDT Patient: Neda Valladares Procedure(s): LEFT ANKLE ARTHROSCOPY, DEBRIDEMENT, BROSTROM REPAIR - Wound Class: I-Clean Diagnosis: LEFT ANKLE INSTABILITY Diagnosis Additional Information: No value filed. Anesthesia Type: General, LMA Note: Airway :Face Mask Patient transferred to:PACU Comments: Pt exhibits spontaneous respirations, follows commands, suctioned, LMA removed, exchangingwell, transferred to pacu with O2 @ 10L via mask, all monitors and alarms on, report to RN, FLASHS.Handoff Report: Identifed the Patient, Identified the Reponsible Provider, Reviewed the pertinent medicalhistory, Discussed the surgical course, Reviewed Intra-OP anesthesia mangement and issues during anesthesia, Set expectations for post-procedure period and Allowed opportunity for questions and acknowledgement of understanding Vitals: (Last set prior to Anesthesia Care Transfer) NEELA VITALS 02/19/2018 1145 - 02/19/2018 1222 02/19/2018 Pulse: 81 SpO2: 100 % Resp Rate (set): 10 EKG: NSR Electronically Signed By: Radha Londono APRN CRNA February 19, 2018 12:22 PM documented in this encounter Plan of Treatment Not on filedocumented as of this encounter Visit Diagnoses Not on filedocumented in this encounter Administered Medications Inactive Administered Medications - up to 3 most recent administrations Medication Order MAR Action Action Date Dose Rate Site ceFAZolin (ANCEF) intermittent Given 02/19/2018 11:27 AM CDT 2 g infusion 2 g in 100 mL dextrose PRE-MIX Routine, 2 g, Intravenous, PRE-OP/PRE-PROCEDURE, Starting on Mon02/19/18 at 0916, For 1 dose, Give first dose within 1 hour PRIOR to incision. If patient weight is greater than or equal to 120 kg increase dose to 3 g., Indications: Perioperative Pharmacoprophylaxis, Pre-procedure dexamethasone (DECADRON) injection Given 02/19/2018 11:30 AM CDT 4 mg PRN, Administer over 1 Minutes, Starting on Mon02/19/18 at 1130, Anesthesia Intra-op fentaNYL (PF) (SUBLIMAZE) injection Given 02/19/2018 11:50 AM CDT 50 mcg PRN, moderate to severe pain, Administer over 3-5 Minutes, Starting on Mon02/19/18 at 1127, Anesthesia Intra-op Given 02/19/2018 11:27 AM CDT 100 mcg lactated ringers infusion New Bag 02/19/2018 11:27 AM CDT at 100 mL/hr, Intravenous, CONTINUOUS, Pre-procedure, Starting on Mon02/19/18 at 0930, Until Mon02/19/18 at 1218 lidocaine injection 2% (MDV) Given 02/19/2018 11:27 AM CDT 40 mg PRN, Starting on Mon02/19/18 at 1127, Anesthesia Intra-op midazolam (VERSED) injection Given 02/19/2018 11:24 AM CDT 2 mg Administer over 2 Minutes, PRN, anxiety, Starting on Mon02/19/18 at 1124, Anesthesia Intra-op ondansetron (ZOFRAN) injection Given 02/19/2018 11:30 AM CDT 4 mg PRN, nausea, vomiting, Administer over 2-5 Minutes, Starting on Mon02/19/18 at 1130, Anesthesia Intra-op propofol (DIPRIVAN) infusion Rate/Dose 02/19/2018 11:57 30 mcg/kg/min 18.7 mL/hr Intravenous, CONTINUOUS PRN, Change AM CDT Starting on Mon02/19/18 at 1127, Anesthesia Intra-op New Bag 02/19/2018 11:27 AM CDT 50 mcg/kg/min 31.2 mL/hr propofol (DIPRIVAN) injection 10 mg/mL v ial Given 02/19/2018 11:27 AM CDT 200 mg PRN, Starting on Mon02/19/18 at 1127, Anesthesia Intra-op documented in this encounter Care Teams Vocational Adviser Relationship Specialty Start Date End Date Chery Leary MD PCP - General Family Practice 02/12/18 [place] [address] documented as of this encounter
--- OUTSIDE RECORDS SUMMARY | 2022-06-20 21:27 | XMS_ITS | Encounter Summary ---
:1985 Author Organization [place] Address [address] [place] [address] Care Team Providers Name Role Phone Chery Leary MD Primary Care Provider [phone] Reason for Visit Auth/Cert Specialty Diagnoses / Procedures Referred By Contact Refer red To Contact Surgery Diagnoses LEFT ANKLE INSTABILITY Sh Periop Services Procedures COMBINED ARTHROSCOPY ANKLE, OPEN REPAIR LIGAMENT [address], [address] [place] [address] Phone: Referral ID Status Reason Start Date Expiration Date Visits Requ ested Visits Authorized [id number] 1 1 Encounter Details Date Type Department Care Team Description 02/19/2018 Hospital Encounter [facility] Tia Moon S/P ankle ligament Nadeem Phase II CMD repair (Primary Dx) [address] [place], [place] [facility] [id number] [phone] [place], [place] [address] Social History Tobacco Use Types Packs/Day Years Used Date Smoking Tobacco: Never Smokeless Tobacco: Never Alcohol Use Standard Drinks/Week Comments Yes 0 (1 standard drink = 0.6 oz pure alcoho l) 2 / WEEK Sex Assigned at Date Recorded Not on file documented as of this encounter Last Filed Vital Signs Vital Sign Reading Time Taken Comments Blood Pressure 133/87 02/19/2018 2:00 PM CDT Pulse 85 02/19/2018 9:23 AM CDT Temperature 35.9 ??C (96.6 ??F) 02/19/2018 12:17 PM CDT Respiratory Rate 14 02/19/2018 2:00 PM CDT Oxygen Saturation 99% 02/19/2018 2:00 PM CDT Inhaled Oxygen Concentration - - Weight [...] concerns. POST-OPERATIVE INSTRUCTIONS FOOT AND ANKLE SURGERY eNd Moon M.D. Yoshi Aly P.A.-C These precautions [...] a waterproof covering, these may be ordered from[employer] or are available at some pharmacies/medical supply stores. Another option is [employer]ero[employer]ox, which is the original vacuum sealed bandage and cast cover. The cast cover has a vacuum seal andis absolutely waterproof. or [email or web address] for more information. ??? Driving: For surgery [...] near your armpits. Grasp the padded hand electronic tester and always support your weight with your [...] while supporting your weighton the padded hand electronic tester. Be careful not to go too far. [...] lose your balance. Hold on to a screen handler railing with onehand and both crutches in [...] injured leg. The person helping you should keyboarding teacher front and to your side that is [...] brace. ANESTHESIA: General. SURGEON: Tia Moon MD CAMOUFLAGE ASSEMBLER: Jim Aly MD PREAMBLE: Ms. Stringer presented [...] in 2 weeks. TIA MOON MD MT: WENDY Name: NEDA STRINGER Account: [id number] : 1985 Procedure Date: 02/19/2018 Document: [id number] documented in this encounter Plan of Treatment [...] Signature HCG Qual Urine Negative NEG^Negati 02/19/2018 [facility] 9:[address] [facility] Comment: This test is for screening purposes. ??R esults should be interpreted along with the clinical picture. ??Confirmation te sting is available if warranted by ordering [id number], HCG Quantitative Pregna ncy. Specimen Anatomical Collection Method Collection Time Receive d Time (Source) Location / / Volume Laterality Urine specimen URINE SPECIMEN 02/19/2018 9:17 AM 02/19 9:24 (specimen) OBTAINED BY CLEAN CDT AM CDT CATCH PROCEDURE / Unknown George Negron [facility] LAB - URINE ORDERABLES Performing Organization Address City/State/ZIP Code Phon e Number M [facility] [address] [address] [phone] [facility] [address] [address], [place] [phone] documented in this encounter Visit Diagnoses Diagnosis S/P ankle ligament repair - Primary Other postprocedural status documented in this encounter Administered Medications Inactive Administered [...] 5mg over 1 minute., PACU/ Phase II documented in this encounter Active and Recently Administered Medications Times are shown in CDT. Scheduled Medication Order 02/17/2018 02/18/2018 02/19/2018 ceFAZolin (ANCEF) intermittent infusion 2 g in 100 mL dextrose PRE-MIX (COMPLETED) 1127 (Given - Provid er: Radha Londono APRN CRNA) Routine, 2 g, Intravenous, PRE-OP/PRE-GA OCEDURE, Starting on Mon02/19/18 at 0916, For [...] Melissa Carranza RN)1237 (Given - Provider: Melissa Carranza, NAGI) 25-50 mcg, Intravenous, EVERY 2 MIN PRN, [...] ( COMPLETED) 1324 (Given - Provider: Melissa Carranza, NAGI) 1 tablet, Oral, ONCE PRN, other, pain [...] Melissa Carranza, NAGI)1316 (Given - Provider: Melissa Carranza, NAGI) 0.3-0.5 mg, Intravenous, EVERY 10 MIN GA N, Starting Mon02/19/18 at 1220, Until Mon02/19/18 at 1636, other, [...] sea, vomiting, Administer over 2-5 Minutes, Starting Mon02/19/18 at 1220, For 2 doses, [...] 30 MIN PRN, nausea, vo miting, Starting 02/19/18 at 1220, For 2 doses, [...] sea, vomiting, Administer over 2-5 Minutes, Starting Mon02/19/18 at 1220, For 2 doses
[...] II documented in this encounter Care Teams Mobile Lounge Driver Or Operator Relationship Specialty Start Date End Date Chery Leary MD PCP - General Family Practice 02/12/18 [place] [address] documented as of this encounter
--- OUTSIDE RECORDS SUMMARY | 2022-06-20 21:27 | XMS_ITS | Clinical Summary ---
:1985 Author Organization [facility] Address [address] [place] [address] Care Team Providers Name Role Phone Chery Leary MD Primary Care Provider [phone] Allergies No known active allergies Medications Medication Sig Dispensed Refills Start Date End Date Status Esomeprazole Magnesium Take 10 mg by 0 Active (NEXIUM PO) mouth every morning SERTRALINE HCL PO Take 50 mg by 0 Active mouth every morning TRAZODONE HCL PO Take 50 mg by 0 Active mouth every evening CYCLOBENZAPRINE HCL PO Take 5 mg by 0 Active mouth every evening HYDROcodone-acetaminoph Take 1-2 tablets 25 tablet 0 8 Active en (NORCO) 5-325 MG per by mouth every 4 tabletIndications: S/P hours as needed ankle ligament repair for other (Moderate to Severe Pain) ibuprofen Take 1 tablet 30 tablet 0 02/19/2018 Activ e (ADVIL/MOTRIN) 600 MG (600 mg) by mouth tabletIndications: S/P every 6 hours as ankle ligament repair needed for pain (mild) senna-docusate Take 1-2 tablets 30 tablet 0 02/19/2018 Active (SENOKOT-S;PERICOLACE) by mouth 2 times 8.6-50 MG per daily Take while tabletIndications: S/P on oral narcotics ankle ligament repair to prevent or treat constipation. ondansetron Take 1-2 tablets 12 tablet 0 02/19/2018 Active (ZOFRAN-ODT) 4 MG ODT (4-8 mg) by mouth tabIndications: S/P every 8 hours as ankle ligament repair needed for nausea Dissolve ON the tongue. Active Problems No known active problems Social History Tobacco Use Types Packs/Day Years [...] Mass Index 33.86 02/19/2018 9:23 AM CDT Plan of Treatment Health Maintenance Due Date Last Done Comments ADVANCE CARE PLANNING 1985 ANNUAL REVIEW OF HM ORDERS 1985 HEPATITIS B IMMUNIZATION (1 of 3 - 1985 3-dose series) YEARLY PREVENTIVE VISIT 1985 COVID-19 Vaccine (#1) 01/07/1985 HIV SCREENING 1999 HEPATITIS C SCREENING 2002 PAP 2005 DTAP/TDAP/TD IMMUNIZATION (1 - 2009 Tdap) PHQ-2 (once per calendar year) 2021 INFLUENZA VACCINE (#1) 2022 IPV IMMUNIZATION Aged Out No longer eligi ble based on patient's age to complete this topic MENINGITIS IMMUNIZATION Aged Out No longe r eligible based on patient's age to complete this topic Pneumococcal Vaccine: Pediatrics Aged Out No longer eligible based on (0 to 5 Years) and At-Risk patie nt's age to complete this Patients (6 to 64 Years) topic Medical Devices Implanted Type Area Strawhat Blocking Operator Device Shelf Model / Identifier Expiration Serial / Lot Date Implant System, Internalbrace Ligament Augmentation Repair Left: ARTHREX 05/23/2019 [id number] / Implanted: Qty: 1 on 02/19/2018 by Tia Ledbetter MD at [facility] Ankle / [id number] Insurance Payer Benefit Plan / Subscriber ID Effective Dates Phone Addre ss Type Group BCBS BCBS OUT OF [id number] 2017-Present [phone] [address] [address] [place] [address] Care Teams Senior Product Manager Relationship Specialty Start Date End Date Chery Leary MD PCP - General Family Practice 02/12/[address] [address]
--- OUTSIDE RECORDS SUMMARY | 2022-06-20 21:28 | XMS_ITS ---
:1985 Author Care Team Providers Name Role Phone Tito Moore Primary Care Provider Unavail able Allergies Code Code System Name Reaction Severity Status Onset No Known Allergies ? ? Active ? NKDA ? Medications Name Status Start Date Stop Date ? ? albuterol sulfate HFA 90 mcg/actuation aerosol inhaler Active ? Not available INHALE 2 PUFFS BY MOUTH EVERY 4 HOURS NEEDED azelaic acid 15 % topical gel Active ? No t available APPLY TO FACE FOR ACNE azithromycin 250 mg tablet Completed ? 01/17 TAKE 2 TABLETS BY MOUTH FOR 1 DAY THEN TAKE 1 TABLET BY MOUTH DAILY FOR 4 DAYS bupropion HCl XL 150 mg 24 hr tablet, extended release Completed ? 01/04/2017 clindamycin 1 % lotion Active ? Not avail able APPLY SPARINGLY TOPICALLY TO THE AFFECTED AREA EVERY DAY clindamycin 1 %-benzoyl peroxide 5 % topical gel Active ? Not available APPLY TOPICALLY TO THE AFFECTED AREA AT BEDTIME clindamycin 1 %-benzoyl peroxide 5 % topical gel with Completed ? 05/09/2019 pump cyclobenzaprine 5 mg tablet Completed ? 04/23 esomeprazole magnesium 20 mg capsule,delayed release Active ? Not available esomeprazole magnesium 40 mg capsule,delayed release Completed ? 01/28/2020 Finacea 15 % topical foam Active ? Not av ailable hydrocodone 5 mg-acetaminophen 325 mg tablet Completed ? 01/17/2022 TAKE 1 - 2 TABLETS BY MOUTH EVERY 4 - 6 HOURS NEEDED FOR PAIN - MAX OF 8 TABLETS PER 24 HOURS hydroxyzine pamoate 25 mg capsule Completed ? 01/17/2022 TAKE 1 - 2 CAPSULES BY MOUTH EVERY 4 - 6 HOURS NEEDED FOR PAIN / MUSCLE SPASMS ibuprofen 600 mg tablet Completed ? 05/09/20 ibuprofen 800 mg tablet Active ? Not avai lable TAKE 1 TABLET BY MOUTH THREE TIMES DAILY NEEDED FOR PAIN ketoconazole 2 % topical cream Active ? N ot available APPLY TOPICALLY TO THE AFFECTED AREA OF FACE ONCE DAILY NEED ED multivitamin Active ? Not available daily Norlyda 0.35 mg tablet Completed ? 1 TAKE 1 TABLET BY MOUTH DAILY NuvaRing 0.12 mg-0.015 mg/24 hr vaginal Completed ? 01/02/2018 ondansetron 4 mg disintegrating tablet Completed ? 01/17/2022 TAKE 1 TABLET BY MOUTH SUBLINGUALLY EVERY 6 HOURS NEEDED FOR NAUSEA penicillin V potassium 500 mg tablet Completed ? 01/28/2020 prednisolone acetate 1 % eye drops,suspension Completed ? 05/09/2019 prednisone 20 mg tablet Completed ? 01/18/20 22 TAKE 2 TABLETS BY MOUTH DAILY DIRECTED ProChamber Active ? Not available DIRECTED sertraline 100 mg tablet Active ? Not miquel ilable TAKE 2 TABLETS BY MOUTH DAILY sertraline 25 mg tablet Completed ? 01/03/20 18 sertraline 50 mg tablet Completed ? 05/09/20 19 Stimulant Laxative Plus 8.6 mg-50 mg tablet Active ? Not available TAKE 2 TABLETS BY MOUTH DAILY NEEDED FOR CONSTIPATION trazodone 50 mg tablet Completed ? 9 triamcinolone acetonide 0.1 % topical cream Completed ? 01/17/2022 APPLY TO AFFECTED AREAS ON FACE TWICE D AILY FOR UP TO TWO WEEKS AT A TIME. REPEAT NEEDED FOR FLARES. Problems Name Status Onset Date Source ? 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 Myofascial Pain Active 01/09/2017 ? Procedures Date Name Performed by ? 11/21/2021 Ankle Arthroscopy/surgery Information no t available 02/19/2018 Ankle Arthroscopy/surgery Information no t available ? Tok Teeth Extraction Information not available Results Lab Results None recorded. Past Encounters 01/17/2022 Episodic Tension-type Headache; Myofasci al Pain; Arthralgia of Temporomandibular Joint; Articular Disc Disorder of Temporomandibular Joint Juli Brooks, DDS: [address] [facility], [address], [place] [address], Ph. 01/12/2021 Episodic Tension-type Headache; Myofasci al Pain; Arthralgia of Temporomandibular Joint; Articular Disc Disorder of Temporomandibular Joint Juli Brooks, DDS: [address] [facility], [address], [place] [address], Ph. Social History Tobacco Smoking Status Never Smoker Vaccine List Vaccine Type influenza, injectable, quadrivalent 04/23/2019 Notes: No 01-02-18 Plan of Care Reminders Provider Appointments None recorded. ? ? Lab None recorded. ? ? Referral None recorded. ? ? Procedures None recorded. ? ? Surgeries None recorded. ? ? Imaging None recorded. ? ? Vitals 01/17/2022 10:00AM FOLLOW UP 30 Blood Pressure 01/12/2021 10:30AM FOLLOW UP 30 Height Blood Pressure 5 ft 9 in 157/95 mm[Hg] 03/12/2020 02:00PM FOLLOW UP 30 Height 5 ft 9 in 02/13/2020 04:00PM SPLINT INSERT Height Weight BMI Blood Pressure 5 ft 9 in 235 lbs 34.7 kg/m2 148/94 mm[Hg] 01/28/2020 11:00AM FOLLOW UP 30 Height 5 ft 9 in 05/09/2019 10:00AM FOLLOW UP 30 Height Weight BMI Blood Pressure 5 ft 9 in 235 lbs 34.7 kg/m2 143/89 mm[Hg] 08/01/2018 02:00PM FOLLOW UP 30 Height Weight BMI Blood Pressure 5 ft 9 in 195 lbs 28.8 kg/m2 136/89 mm[Hg] 01/02/2018 02:00PM FOLLOW UP 30 Height 5 ft 9 in 06/14/2017 10:00AM FOLLOW UP 30 Height Weight BMI 5 ft 9 in 195 lbs 28.8 kg/m2 01/04/2017 10:00AM FOLLOW UP 30 Height Weight BMI 5 ft 9 in 195 lbs 28.8 kg/m2 02/19/2016 Height Weight BMI Blood Pressure 5 ft 9 in 200 lbs 30.00 kg/m2 155/99 mm[Hg] 01/20/2016 Height Weight BMI Blood Pressure 5 ft 9 in 200 lbs 30.00 kg/m2 140/89 mm[Hg] 01/06/2016 Height Weight BMI Blood Pressure 5 ft 9 in 200 lbs 30.00 kg/m2 147/95 mm[Hg]
[2022-06-20] MEDS: CEFAZOLIN 1 GM in 0.9 % SODIUM CHLORIDE Mini-bag 100 ML IVPB (21:36)
[2022-06-20 22:03] VITALS: BP 142/93; PULSE 86; O2SAT 99
[2022-06-20] MEDS: KETOROLAC 15 MG/ML inj IVP (22:09)
[2022-06-20 23:28] VITALS: TEMP 36.8
[2022-06-20 23:45] VITALS: BP 135/78; PULSE 86; RESP 18; TEMP 36.8
[2022-06-20 23:47] VITALS: O2SAT 99
[2022-06-20 23:48] VITALS: BP 135/78; PULSE 78; RESP 18; TEMP 36.8; O2SAT 99
--- NOTE | 2022-06-22 12:45 | ED.NURSE ---
Patient's called with concerns that Xarelto prescription was too expensive (had picked up #5 tablets as this was all the pharmacy had, went to finish refill and would be $500). Patient at home with and gives us permission to speak with him. Per Dr. Chavez, okay for patient to discontinue xeralto, start Apixaban 2.5mg BID x14 days. Follow up with ortho to decide if blood thinners need to be continued
== END 2022-06-20 23:52 | disposition home or self-care (01) ==
PROVIDERS: Emergency Provider Family Medicine
DX: G89.18 Other acute postprocedural pain (principal); R22.42 Localized swelling, mass and lump, left lower limb
CPT/HCPCS: 36415; 80053; 83605; 85025; 86140; 87040; 87070; 87631; 93971; 94761; 96365; 96375; 99284; A9270; J0690; J1170; J1885; J2270; J2405; J7030

== ENCOUNTER 2023-02-13 13:12 | Outpatient (CLI) | payer BC, SELFPAY | END 2023-02-13 13:13 | disposition home or self-care (01) | PROVIDERS: PCP Family Medicine; Visit Provider Physician Assistant Medical | DX: Z00.00 Encounter for general adult medical examination without abnormal findings (principal); K52.9 Noninfective gastroenteritis and colitis, unspecified; R79.89 Other specified abnormal findings of blood chemistry; E66.9 Obesity, unspecified; R19.8 Other specified symptoms and signs involving the digestive system and abdomen | CPT/HCPCS: 80053; 80061; 83516; 84443; 86140; 86703; 86803 ==

== ENCOUNTER 2023-02-24 09:48 | Outpatient (CLI) | payer BC, SELFPAY ==
--- NOTE | 2023-02-24 11:26 | W.ANESCHARGE ---
Anesthesia Charges Start Date/Time Anesthesia Start Date: 02/24/23 Anesthesia Start Time: 10:55 Stop Date/Time Anesthesia Stop Date: 02/24/23 Anesthesia Stop Time: 11:30
== END 2023-02-24 09:49 | disposition home or self-care (01) ==
LOC: OP CLINIC 09:49
PROVIDERS: PCP Family Medicine; Visit Provider Internal Medicine
DX: R10.84 Generalized abdominal pain (principal); K31.7 Polyp of stomach and duodenum
CPT/HCPCS: 43239; 45380; 813; 88305; J2704; J3490

== ENCOUNTER 2024-05-24 13:53 | Outpatient (CLI) | payer BC, SELFPAY ==
[2024-05-27 17:35] LABS: HPV Source Cervix; HPV, High Risk by TMA Not Detected
[2024-06-11 14:01] LABS: Pap Test Reviewed by Path Done
== END 2024-05-24 13:54 | disposition home or self-care (01) ==
PROVIDERS: PCP Physician Assistant Medical; Visit Provider Registered Nurse
DX: Z12.4 Encounter for screening for malignant neoplasm of cervix (principal)
CPT/HCPCS: 87624; 87625; 88141; 88142

== ENCOUNTER 2024-08-13 15:44 | Outpatient (CLI) | payer BC, SELFPAY ==
[2024-08-13 21:27] LABS: Chlamydia DNA Amplified* NOT DETECTED (No Detected); GC DNA Amplified* NOT DETECTED (No Detected)
== END 2024-08-13 15:45 | disposition home or self-care (01) ==
PROVIDERS: PCP Physician Assistant Medical; Referring Provider Physician Assistant Medical; Visit Provider Registered Nurse
DX: Z11.3 Encounter for screening for infections with a predominantly sexual mode of transmission (principal)
CPT/HCPCS: 80061; 81025; 84443; 85027; 87491; 87591

== ENCOUNTER 2024-10-03 15:20 | Outpatient (CLI) | payer BC, SELFPAY ==
--- NOTE | 2024-10-03 15:20 | CRLHL7_ITS ---
For Patients: As a result of the Century Cures Act, medical imaging exams and procedure reports are released immediately into your electronic medical record. You may view this report before your referring provider. If you have questions, please contact your health care provider. BILATERAL SCREENING MAMMOGRAM WITH COMPUTER-AIDED DETECTION AND TOMOSYNTHESIS TECHNIQUE: CC and MLO views were obtained. These mammographic images have been obtained using full-field digital technique. These mammographic images were interpreted with the benefit of computer-aided detection. Breast tomosynthesis was used in this interpretation. COMPARISON FILM: None. This is a baseline study. FINDINGS: The breasts are heterogeneously dense, which may obscure small masses. IMPRESSION: There is no radiographic evidence for malignancy. ASSESSMENT: BI-RADS Category 1: Negative RECOMMENDATION: Routine screening mammogram in 1 year. A lay language report of this examination will be provided to the patient. AMADEO JORGE M.D. Diagnostic Radiologist [email or web address] ROSI/vitaliy Transcribed: 10/04/2024, 1:[address]/Dictated by: Amadeo Jorge MD @ 10/04/2024 9:47:00 AM (Electronically Signed)
== END 2024-10-03 15:21 | disposition home or self-care (01) ==
LOC: MAMMO 15:22
PROVIDERS: PCP Physician Assistant Medical; Visit Provider Registered Nurse
DX: Z12.31 Encounter for screening mammogram for malignant neoplasm of breast (principal); R92.333 Mammographic heterogeneous density, bilateral breasts
CPT/HCPCS: 77063; 77067

== ENCOUNTER 2025-03-05 10:14 | Outpatient (CLI) | payer BC, SELFPAY | END 2025-03-05 10:15 | disposition home or self-care (01) | LOC: NFLDREF 03-10 12:37 | PROVIDERS: PCP Physician Assistant Medical; Referring Provider Physician Assistant Medical; Visit Provider Physician Assistant Medical | DX: R79.89 Other specified abnormal findings of blood chemistry (principal); F41.9 Anxiety disorder, unspecified; F32.A Depression, unspecified; E66.9 Obesity, unspecified; Z13.6 Encounter for screening for cardiovascular disorders; Z13.29 Encounter for screening for other suspected endocrine disorder; Z13.21 Encounter for screening for nutritional disorder | CPT/HCPCS: 80053; 80061; 82306; 84443 ==